=== PATIENT | female | born 1935 | race Caucasian/White ===

== ENCOUNTER 2018-09-29 06:55 | Emergency (ER) | payer MEDICARE, OTHER ==
[2018-09-29] MEDS ORDERED: ACETAMINOPHEN 325 MG TABLET PO STA (07:52)
[2018-09-29] MEDS ORDERED: DEXAMETHASONE 10 MG/ML VIAL PO STA (07:52)
[2018-09-29] MEDS ORDERED: CHERRY SYRUP 10 ML UDC PO ONE (08:03)
--- NOTE | 2018-09-29 08:22 | ED Physician Documentation ---
PD HPI CHEST PAIN - Stated complaint Stated Complaint: RIB PX - Chief complaint Chief Complaint: General - History obtained from History obtained from: Patient, Family - History of Present Illness Timing - onset: How many days ago (2) Timing - onset during: Rest Timing - duration: Days (2) Timing - details: Gradual onset, Still present Quality: Sharp, Pain Location: Right chest Improved by: Rest Worsened by: Inspiration, Movement, Palpation, Position Associated symptoms: No: Shortness of air, Diaphoresis, Nausea, Vomiting, Feeling faint / dizzy, General Weakness, Palpitations, Cough Similar symptoms before: Has not had sx before Recently seen: Clinic - Additional information Additional information: 83 y/o female previously well was sitting in her easy chair and and leaned over to cotton picker a pill on the floor and she leaned against the right chest wall to do this. She had minimal pain then and her chest did not bother her that much until early this morning when it became much worse. She has not broken ribs or contused her chest wall previously. Review of Systems Constitutional: denies: Fever Eyes: denies: Decreased vision Ears: denies: Ear pain Nose: denies: Congestion Throat: denies: Sore throat Cardiac: reports: Chest pain / pressure. 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, Chronic bladder infection, Other HEENT: None Psych: None Musculoskeletal: Osteoarthritis - Past Surgical History Past Surgical History: Yes General: Cholecystectomy, Appendectomy Ortho: Knee replacement Cardiovascular: Other HEENT: Cataracts - Present Medications Home Medications: Ambulatory Orders Medication Instructions Recorded Confirmed Aspirin [Byron] 325 mg ORAL DAILY 09/27/14 10/19/16 Levothyroxine [Synthroid] 112 mcg ORAL DAILY 09/27/14 10/19/16 Omeprazole [Prilosec] 20 mg ORAL BID 09/27/14 10/19/16 Simvastatin 20 mg ORAL DAILY 09/27/14 10/19/16 raNITIdine [Zantac] 150 mg ORAL BID 09/27/14 10/19/16 Atenolol 12.5 mg PO DAILY 10/19/16 10/20/16 - Allergies Allergies/Adverse Reactions: Allergies Allergy/AdvReac Type Severity Reaction Status Date / Time acetaminophen [From Percocet] Allergy Unknown Verified 09/29/18 07:28 gabapentin Allergy Unknown Verified 09/27/14 12:03 oxycodone [From Percocet] Allergy Unknown Verified 09/29/18 07:28 Sulfa (Sulfonamide Allergy Hives Verified 09/27/14 12:03 Antibiotics) - Social History Does the pt smoke?: No Smoking Status: Never smoker Does the pt drink ETOH?: No Does the pt have substance abuse?: No - Immunizations Immunizations are current?: Yes - POLST Patient has POLST: Yes PD ED PE NORMAL - Vitals Vital signs reviewed: Yes (hypertensive ) - General General: Alert and oriented X 3, No acute distress, Well developed/nourished - HEENT HEENT: Atraumatic, PERRL, EOMI - Neck Neck: Supple, no meningeal sign - Cardiac Cardiac: RRR, No murmur - Respiratory Respiratory: No respiratory distress, Clear bilaterally, Other (point tenderness to the chest wall below the right breast. 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 No acute fracture or bony lesion. 2. No pleural effusions. No pneumothorax. 3. Increased size of the hiatal hernia.), EMP read indepedently, See rad report PD MEDICAL DECISION MAKING - ED course Complexity details: reviewed results, re-evaluated patient, considered differential, d/w patient, d/w family ED course: 83 y/o female with right sided chest pain after chest wall contusion is given PO decadron and refuses pain medication. Departure - Departure Disposition: 01 Home, Self Care Clinical Impression: Chest wall contusion Qualifiers: Encounter type: initial encounter Laterality: right Qualified Code(s): S20.211A - Contusion of right front wall of thorax, initial encounter Condition: Stable Instructions: ED Contusion Chest Wall Follow-Up: Henry Rodriguez MD [Primary Care Provider] -
--- NOTE | 2018-09-29 08:37 | XRAY Report ---
Reason: R rib pain Procedure Date: 09/29/2018 Accession Number: [id number] / [id number] Procedure: XR - Ribs w/PA Chest RT CPT Code: FULL RESULT: EXAM: RIGHT RIB RADIOGRAPHY EXAM DATE: 09/29/2018 08:14 AM. CLINICAL HISTORY: Right rib pain. COMPARISON: 10/19/2016. 10/25/2014. TECHNIQUE: 1 view of the chest and 2 views of the ribs. FINDINGS: Bones: Normal. No fracture or bone lesion. Lungs: No focal opacities. No pneumothorax. No pleural effusions. Mediastinum: Cardiomegaly. Hiatal hernia with a transverse dimension of 13.5 cm. Aortic tortuosity. Aortic atherosclerosis. Other: Degenerative changes of the thoracic spine. Status post cholecystectomy. IMPRESSION: 1. No acute fracture or bony lesion. 2. No pleural effusions. No pneumothorax. 3. Increase in size of the hiatal hernia. RADIA
[2018-09-29 09:09] VITALS: BP 160/86
== END 2018-09-29 09:02 | disposition home or self-care (01) ==
LOC: ED 06:55
DX: S20.211A Contusion of right front wall of thorax, initial encounter (principal); I10 Essential (primary) hypertension
CPT/HCPCS: 71101; 99283; A9270

== ENCOUNTER 2019-08-21 11:03 | Emergency (ER) | payer MEDICARE, OTHER ==
--- NOTE | 2019-08-21 12:17 | ED Physician Documentation ---
PD HPI UPPER EXT INJURY - Stated complaint Stated Complaint: GLF-L SHOULDER PX - Chief complaint Chief Complaint: Trauma Ext - History obtained from History obtained from: Patient - History of Present Illness Location: Left, Shoulder Type of injury: Fall Where injury occurred: Home Timing - onset: Today Timing - duration: Hours (2) Timing - details: Abrupt onset Pain level now: 8 Improved by: Immobilization Worsened by: Moving, Palpating Associated symptoms: No: Weakness, Numbness, Tingling, Discolored Contributing factors: No: Anticoagulated, Prior ortho surgery Recently seen: Not recently seen - Additonal information Additional information: This is an 84-year-old woman who presents with her family complaints that she was at home today when she lost her balance in the kitchen and fell landing onto her left elbow and shoulder on the kitchen floor. The injury occurred about 2 hours prior to presentation. She did not hit her head. Denies neck pain numbness or tingling. Her only complaint is pain in the left shoulder that she rates it an 8-9 out of 10 but it is worse with movement. She did not take any medications prior to coming into the emergency department. She typically walks with a cane in her right arm. Review of Systems Skin: denies: Abrasion (s), Laceration (s) Musculoskeletal: reports: Joint pain. 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, Chronic bladder infection, Other HEENT: None Psych: None Musculoskeletal: Osteoarthritis - Past Surgical History Past Surgical History: Yes General: Cholecystectomy, Appendectomy Ortho: Knee replacement Cardiovascular: Other HEENT: Cataracts - Present Medications Home Medications: Ambulatory Orders Medication Instructions Recorded Confirmed Aspirin [Byron] 325 mg ORAL DAILY 09/27/14 08/21/19 Levothyroxine [Synthroid] 112 mcg ORAL DAILY 09/27/14 08/21/19 Omeprazole [Prilosec] 20 mg ORAL BID 09/27/14 08/21/19 Simvastatin 20 mg ORAL DAILY PM 09/27/14 08/21/19 raNITIdine [Zantac] 150 mg ORAL BID 09/27/14 08/21/19 Atenolol 12.5 mg PO DAILY 10/19/16 08/21/19 - Allergies Allergies/Adverse Reactions: Allergies Allergy/AdvReac Type Severity Reaction Status Date / Time acetaminophen [From Percocet] Allergy Unknown Verified 08/21/19 11:09 gabapentin Allergy Unknown Verified 08/21/19 11:09 oxycodone [From Percocet] Allergy Unknown Verified 08/21/19 11:09 Sulfa (Sulfonamide Allergy Hives Verified 08/21/19 11:09 Antibiotics) - Social History Does the pt smoke?: No Smoking Status: Never smoker Does the pt drink ETOH?: No Does the pt have substance abuse?: No - Immunizations Immunizations are current?: Yes - POLST Patient has POLST: Yes PD ED PE NORMAL - Vitals Vital signs reviewed: Yes - General General: Alert and oriented X 3, Well developed/nourished, Other (She grimaces anytime she has to move the left arm. She seated in a wheelchair holding her cane) - HEENT HEENT: Atraumatic - Respiratory Respiratory: No respiratory distress - Derm Derm: Normal color, Warm and dry, Other (No bruising or abrasion noted about the left shoulder) - Extremities Extremities: Other (She is unable to abduct the left shoulder or flex it past about 5 degrees. Tender over the greater trochanter. Left elbow has free range of motion and is nontender. The left wrist is nontender. There are 2+ radial pulses bilaterally.). No: No deformity, No tenderness to palpate, Normal ROM s pain - Neuro Neuro: No motor deficit, No sensory deficit, Normal speech - Psych Psych: Normal mood, Normal affect Results - Vitals Vitals: Vital Signs - 24 hr 08/21/19 08/21/19 11:09 13:10 Temperature 36.5 C 36.8 C Heart Rate 78 62 Respiratory 18 12 Rate Blood Pressure 175/92 H 152/82 H O2 Saturation 98 100 Oxygen O2 Source [] Room air O2 Source Room air - Rads (name of study) L shoulder Radiology: EMP read contemporaneously, See rad report (No obvious fracture) PD MEDICAL DECISION MAKING - ED course Complexity details: reviewed results, d/w patient, d/w family ED course: Results discussed with the patient. She is placed in a sling for comfort. She does not want anything for pain but I recommended Aleve for the next 2 to 3 days and then extra strength Tylenol. Ice the shoulder. She should follow-up with her primary care provider to begin early mobilization to avoid a frozen shoulder. Departure - Departure Disposition: 01 Home, Self Care Clinical Impression: Shoulder injury Qualifiers: Encounter type: initial encounter Laterality: left Qualified Code(s): S49.92XA - Unspecified injury of left shoulder and upper arm, initial encounter Condition: Good Instructions: ED Sling Follow-Up: Henry Rodriguez MD [Primary Care Provider] - Comments: Use the shoulder sling for comfort. Ice the shoulder. I would recommend taking Aleve for the next 2 to 3 days to help with the more acute pain and using Tylenol if needed as well. Follow-up with your doctor this week or early next week for evaluation. You should begin early shoulder mobilization to prevent frozen shoulder.
--- NOTE | 2019-08-21 12:33 | XRAY Report ---
Reason: left shoulder injury Procedure Date: 08/21/2019 Accession Number: [id number] / [id number] Procedure: XR - Shoulder 3 View LT CPT Code: FULL RESULT: EXAM: LEFT SHOULDER RADIOGRAPHY EXAM DATE: 08/21/2019 12:09 PM. CLINICAL HISTORY: Left shoulder injury. COMPARISON: None. TECHNIQUE: 3 views. FINDINGS: Bones: Bones are osteopenic. No fractures or bone lesions. Joints: Mild glenohumeral joint degenerative disease is seen. Mild acromioclavicular degenerative joint disease is seen. Alignment is preserved. Soft tissues: The visualized hemithorax is unremarkable. No soft tissue swelling. IMPRESSION: No acute findings. Shoulder DJD and osteopenia seen. RADIA
[2019-08-21 13:11] VITALS: BP 152/82
== END 2019-08-21 13:26 | disposition home or self-care (01) ==
LOC: ED 11:03
DX: S49.92XA Unspecified injury of left shoulder and upper arm, initial encounter (principal); W18.39XA Other fall on same level, initial encounter; Y92.000 Kitchen of unspecified non-institutional (private) residence as the place of occurrence of the external cause; I10 Essential (primary) hypertension
CPT/HCPCS: 99282; 99283

== ENCOUNTER 2019-09-22 18:10 | Emergency (ER) | payer MEDICARE, OTHER ==
--- NOTE | 2019-09-22 18:53 | ED Physician Documentation ---
History of Present Illness - Stated complaint Stated Complaint: CP, F - Chief complaint Chief Complaint: Cardiac - History obtained from History obtained from: Patient, Family - History of Present Illness Timing: How many weeks ago (1) Pain level max: 2 Pain level now: 1 - Additonal information Additional information: 84-year-old female presents to the emergency department stating she has not been feeling well for the past week since starting Lexapro. She describes burning sensations in her chest occasionally. She also states that she has been feeling weak. States had some dysuria this morning. No fevers. No vomiting. She states that she does not have any history of heart problems. She was recently changed from ranitidine to famotidine for GERD. Her family states that she has had a cardiac ablation in the past. She does not quite recall what this was for. Nothing makes it better or worse Review of Systems Ten Systems: 10 systems reviewed and negative Constitutional: denies: Fever, Chills Ears: denies: Ear pain Nose: denies: Rhinorrhea / runny nose, Congestion Throat: denies: Sore throat Cardiac: denies: Palpitations, Calf pain Respiratory: denies: Dyspnea, Cough GI: denies: Abdominal Pain, Nausea, Vomiting, Diarrhea : reports: Dysuria Skin: denies: Rash Musculoskeletal: denies: Neck pain, Back pain Neurologic: reports: Generalized weakness. 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, Chronic bladder infection, Other HEENT: None Psych: None Musculoskeletal: Osteoarthritis - Past Surgical History Past Surgical History: Yes General: Cholecystectomy, Appendectomy Ortho: Knee replacement Cardiovascular: Other HEENT: Cataracts - Present Medications Home Medications: Ambulatory Orders Medication Instructions Recorded Confirmed Aspirin [Byron] 325 mg ORAL DAILY 09/27/14 08/21/19 Levothyroxine [Synthroid] 112 mcg ORAL DAILY 09/27/14 08/21/19 Omeprazole [Prilosec] 20 mg ORAL BID 09/27/14 08/21/19 Simvastatin 20 mg ORAL DAILY PM 09/27/14 08/21/19 raNITIdine [Zantac] 150 mg ORAL BID 09/27/14 08/21/19 Atenolol 12.5 mg PO DAILY 10/19/16 08/21/19 Aspirin EC [Ecotrin] 325 mg PO DAILY #30 tablet 09/22/19 Atenolol 25 mg PO DAILY #30 tablet 09/22/19 Escitalopram [Lexapro] 10 mg PO DAILY 09/22/19 09/22/19 - Allergies Allergies/Adverse Reactions: Allergies Allergy/AdvReac Type Severity Reaction Status Date / Time acetaminophen [From Percocet] Allergy Unknown Verified 09/22/19 18:30 gabapentin Allergy Unknown Verified 09/22/19 18:30 oxycodone [From Percocet] Allergy Unknown Verified 09/22/19 18:30 Sulfa (Sulfonamide Allergy Hives Verified 09/22/19 18:30 Antibiotics) - Social History Does the pt smoke?: No Smoking Status: Never smoker Does the pt drink ETOH?: No Does the pt have substance abuse?: No - Immunizations Immunizations are current?: Yes - POLST Patient has POLST: Yes PD ED PE NORMAL - Vitals Vital signs reviewed: Yes - General General: Alert and oriented X 3, No acute distress, Well developed/nourished - HEENT HEENT: PERRL, Moist mucous membranes, Pharynx benign - Neck Neck: Supple, no meningeal sign - Cardiac Cardiac: Strong equal pulses, Other (Irregularly irregular) - Respiratory Respiratory: No respiratory distress, Clear bilaterally - Abdomen Abdomen: Soft, Non tender, Non distended - Back Back: No CVA TTP - Derm Derm: Warm and dry, No rash - Extremities Extremities: No edema - Neuro Neuro: Alert and oriented X 3 - Psych Psych: Normal mood, Normal affect Results - Vitals Vitals: Vital Signs - 24 hr 09/22/19 09/22/19 18:28 20:56 Temperature 36.5 C Heart Rate 66 67 Respiratory 18 17 Rate Blood Pressure 190/85 H 159/81 H O2 Saturation 100 97 Oxygen O2 Source [] Room air O2 Source Room air - EKG (time done) 1822 Rate: Rate (enter#) (102) Rhythm: Atrial flutter [place]: Normal QRS: Normal Ischemia: Non specific changes - Labs Labs: Laboratory Tests 09/22/19 09/22/19 09/22/19 18:55 19:08 19:08 WBC 5.4 RBC 4.25 Hgb 13.8 Hct 41.0 MCV 96.5 MCH 32.5 H MCHC 33.7 RDW 13.5 Plt Count 214 MPV 10.1 Neut # (Auto) 2.9 Lymph # (Auto) 2.0 Luna # (Auto) 0.5 Eos # (Auto) 0.1 Baso # (Auto) 0.0 Absolute Nucleated RBC 0.00 Nucleated RBC % 0.0 Sodium Potassium Chloride Carbon Dioxide Anion Gap BUN Creatinine Estimated GFR (MDRD) Glucose Calcium Total Bilirubin AST ALT Alkaline Phosphatase Troponin I High Sens 16.0 H* Total Protein Albumin Globulin Albumin/Globulin Ratio Lipase Urine Color YELLOW Urine Clarity CLEAR Urine pH 6.5 Ur Specific [place] 1.010 Urine Protein NEGATIVE Urine Glucose (UA) NEGATIVE Urine Ketones 15 H Urine Occult Blood MODERATE H Urine Nitrite NEGATIVE Urine Bilirubin NEGATIVE Urine Urobilinogen 0.2 (NORMAL) Ur Leukocyte Esterase SMALL H Urine RBC 0-5 Urine WBC 6-10 H Ur Squamous Epith Cells FEW Squamous Urine Bacteria None Seen Ur Microscopic Review INDICATED Urine Culture Comments INDICATED 09/22/19 19:30 WBC RBC Hgb Hct MCV MCH MCHC RDW Plt Count MPV Neut # (Auto) Lymph # (Auto) Luna # (Auto) Eos # (Auto) Baso # (Auto) Absolute Nucleated RBC Nucleated RBC % Sodium 140 Potassium 3.0 L Chloride 105 Carbon Dioxide 28 Anion Gap 7.0 BUN 16 Creatinine 0.6 Estimated GFR (MDRD) 95 Glucose 102 H Calcium 8.7 Total Bilirubin 1.4 H AST 20 ALT 17 Alkaline Phosphatase 51 Troponin I High Sens Total Protein 6.8 Albumin 3.9 Globulin 2.9 Albumin/Globulin Ratio 1.3 Lipase 23 Urine Color Urine Clarity Urine pH Ur Specific [place] Urine Protein Urine Glucose (UA) Urine Ketones Urine Occult Blood Urine Nitrite Urine Bilirubin Urine Urobilinogen Ur Leukocyte Esterase Urine RBC Urine WBC Ur Squamous Epith Cells Urine Bacteria Ur Microscopic Review Urine Culture Comments - Rads (name of study) cxr Radiology: Prelim report reviewed, EMP read contemporaneously, See rad report (No acute disease) PD MEDICAL DECISION MAKING - ED course Complexity details: reviewed results, re-evaluated patient, considered differential, d/w patient, d/w family ED course: 84-year-old female found to be in atrial fibrillation upon arrival. She spontaneously converted. She felt much better after she converted back to sinus rhythm. She is on atenolol and we will increase this. She does not have any symptoms of acute coronary syndrome at this time. We will also increase her aspirin from a baby aspirin to a full aspirin daily until she can see her doctor for further work-up. No significant laboratory abnormalities other than mild hypokalemia, potassium was replaced. Urinalysis appears to be contaminated, and not a true UTI. Patient counseled regarding signs and symptoms for which I believe and urgent re-evaluation would be necessary. Patient with good understanding of and agreement to plan and is comfortable going home at this time This document was made in part using voice recognition software. While efforts are made to proofread this document, sound alike and grammatical errors may occur. Departure - Departure Disposition: Home, Self Care Clinical Impression: Paroxysmal atrial fibrillation Condition: Good Instructions: ED Afib Follow-Up: Henry Rodriguez MD [Primary Care Provider] - Within 1 week Prescriptions: Aspirin EC [Ecotrin] 325 mg PO DAILY #30 tablet Atenolol 25 mg PO DAILY #30 tablet Comments: We will increase her atenolol to 25 mg by mouth daily. Will increase her aspirin to a full dose aspirin daily. You need to follow-up with your doctor for a cardiac echo and likely Holter monitor. You were in atrial fibrillation when you arrived in the emergency department tonight. It is likely that you have paroxysmal atrial fibrillation. Return if you worsen Discharge Date/Time: 09/22/19 20:56
[2019-09-22 19:00] LABS: BILIRUBIN,URINE NEGATIVE (NEGATIVE); GLUCOSE, URINE (UA) NEGATIVE (NEGATIVE); KETONES,URINE (UA) 15 mg/dL (NEGATIVE); LEUKOCYTE ESTERASE, URINE SMALL (NEGATIVE); NITRITE,URINE NEGATIVE (NEGATIVE); OCCULT BLOOD,URINE MODERATE (NEGATIVE); PH,URINE 6.5 PH (5.0-7.5); PROTEIN,URINE NEGATIVE (NEGATIVE); UROBILINOGEN,URINE 0.2 (NORMAL) E.U./dL (NORMAL)
[2019-09-22 19:01] LABS: CLARITY,URINE CLEAR (CLEAR)
[2019-09-22 19:10] LABS: BACTERIA,URINE None Seen /HPF (None Seen); RBC,URINE 0-5 /HPF (0-5); SQUAMOUS EPITHELIAL CELL,UR FEW Squamous (<= Few)
--- NOTE | 2019-09-22 19:13 | XRAY Report ---
Reason: chest pain Procedure Date: 09/22/2019 Accession Number: [id number] / [id number] Procedure: XR - Chest 1 View X-Ray CPT Code: 32541 Final Report FULL RESULT: EXAM: CHEST RADIOGRAPHY EXAM DATE: 09/22/2019 07:05 PM. CLINICAL HISTORY: Chest pain. COMPARISON: RIBS W/PA CHEST RT 09/29/2018 7:58 AM. TECHNIQUE: 2 portable view. FINDINGS: Lungs/Pleura: No focal opacities evident. No pleural effusion. No pneumothorax. Mediastinum: Within exam limitations, the cardiomediastinal contour is normal. Previously seen hiatal hernia is not demonstrated on the current exam. Other: None. IMPRESSION: No acute disease. RADIA
[2019-09-22 19:19] LABS: BASOPHILS % (AUTO) 0.6 %; EOSINOPHILS # (AUTO) 0.1 10^3/uL (0.0-0.7); EOSINOPHILS % (AUTO) 0.9 %; HGB - HEMOGLOBIN 13.8 g/dL (12.0-16.0); LYMPHOCYTES % (AUTO) 36.7 %; MEAN CORPUSCULAR HEMOGLOBIN 32.5 pg (27.0-31.0); MEAN CORPUSCULAR HGB CONC 33.7 g/dL (32.0-36.0); MEAN CORPUSCULAR VOLUME 96.5 fL (81.0-99.0); MEAN PLATELET VOLUME 10.1 fL (7.9-10.8); MONOCYTES # (AUTO) 0.5 10^3/uL (0.0-1.0); MONOCYTES % (AUTO) 8.3 %; NEUTROPHILS # (AUTO) 2.9 10^3/uL (1.5-6.6); NEUTROPHILS % (AUTO) 53.3 %; PLT - PLATELET COUNT 214 10^3/uL (130-450); RED BLOOD COUNT 4.25 10^6/uL (4.20-5.40); RED CELL DISTRIBUTION WIDTH 13.5 % (12.0-15.0); WHITE BLOOD COUNT 5.4 x10^3/uL (4.8-10.8)
[2019-09-22 19:50] LABS: ALBUMIN 3.9 g/dL (3.2-5.5); ALBUMIN/GLOBULIN RATIO 1.3 (1.0-2.2); BILIRUBIN,TOTAL 1.4 mg/dL (0.2-1.0); CALCIUM 8.7 mg/dL (8.5-10.3); CREATININE 0.6 mg/dL (0.4-1.0); TOTAL PROTEIN 6.8 g/dL (6.7-8.2)
[2019-09-22] MEDS ORDERED: POTASSIUM CHLORIDE 20 MEQ TABLET PO STA (19:51)
[2019-09-22 20:56] VITALS: BP 159/81
== END 2019-09-22 20:56 | disposition home or self-care (01) ==
LOC: ED 18:10
DX: I48.0 Paroxysmal atrial fibrillation (principal); I48.92 Unspecified atrial flutter; I45.81 Long QT syndrome; E87.6 Hypokalemia; R30.0 Dysuria; I10 Essential (primary) hypertension; K21.9 Gastro-esophageal reflux disease without esophagitis; Z79.82 Long term (current) use of aspirin
CPT/HCPCS: 36415; 71045; 80053; 81001; 83690; 84484; 85025; 87077; 87086; 87181; 93005; 99284; A9270; 81003

== ENCOUNTER 2020-07-08 15:45 | Inpatient (IN) | payer MEDICARE, OTHER ==
[2020-07-08] MEDS ORDERED: LIDOCAINE VISCOUS 2% 15 ML UDC MM STA (16:08)
[2020-07-08] MEDS ORDERED: MAG HYDROX/AL HYDROX/SIMETH 30 ML UDC PO STA (16:08)
--- NOTE | 2020-07-08 16:10 | ED Physician Documentation ---
PD HPI CHEST PAIN - Stated complaint Stated Complaint: BURNING IN CHEST, LACK OF APPETITE - Chief complaint Chief Complaint: Cardiac - History obtained from History obtained from: Patient - Additional information Additional information: She has had burning substernal nonradiating chest pain for the last 3 days that has been fairly constant. It is associated with lack of appetite and diarrhea. There is no increased shortness of breath over a baseline shortness of breath that she has due to a hiatal hernia. She has not had any sweats. She is mildly fatigued. She said she has had this before, and then diagnosis was UTI and noncardiac chest pain. She also has a history of PE but this is very different. No pedal edema or calf pain. She is not currently anticoagulated. Review of Systems Ten Systems: 10 systems reviewed and negative Constitutional: denies: Fever, Chills Throat: denies: Dental pain / toothache, Sore throat Cardiac: reports: Chest pain / pressure. denies: Palpitations, Pedal edema, Calf pain Respiratory: reports: Dyspnea (Chronic and unchanged). denies: Cough GI: reports: Diarrhea. denies: Abdominal Pain, Nausea, Vomiting PD PAST MEDICAL HISTORY - Past Medical History Cardiovascular: Hypertension, High cholesterol Endocrine/Autoimmune: HyPOthyroidism GI: [employer]: None : None, Chronic bladder infection, Other HEENT: None Psych: None Musculoskeletal: Osteoarthritis - Past Surgical History Past Surgical History: Yes General: Cholecystectomy, Appendectomy Ortho: Knee replacement Cardiovascular: Other HEENT: Cataracts - Present Medications Home Medications: Ambulatory Orders Medication Instructions Recorded Confirmed Levothyroxine [Synthroid] 112 mcg ORAL DAILY 09/27/14 07/08/20 Omeprazole [Prilosec] 20 mg ORAL BID 09/27/14 07/08/20 Simvastatin 20 mg ORAL DAILY PM 09/27/14 07/08/20 Escitalopram [Lexapro] 10 mg PO DAILY 09/22/19 07/08/20 atenoloL [Atenolol] 25 mg PO DAILY #30 tablet 09/22/19 07/08/20 Famotidine 20 mg PO DAILY 07/08/20 07/08/20 - Allergies Allergies/Adverse Reactions: Allergies Allergy/AdvReac Type Severity Reaction Status Date / Time acetaminophen [From Percocet] Allergy Unknown Verified 07/08/20 15:56 gabapentin Allergy Unknown Verified 07/08/20 15:56 oxycodone [From Percocet] Allergy Unknown Verified 07/08/20 15:56 Sulfa (Sulfonamide Allergy Hives Verified 07/08/20 15:56 Antibiotics) - Social History Does the pt smoke?: No Smoking Status: Never smoker Does the pt drink ETOH?: No Does the pt have substance abuse?: No - Immunizations Immunizations are current?: Yes - POLST Patient has POLST: Yes PD ED PE NORMAL - Vitals Vital signs reviewed: Yes - General General: Alert and oriented X 3, No acute distress - HEENT HEENT: PERRL, EOMI - Neck Neck: Supple, no meningeal sign, No bony TTP - Cardiac Cardiac: RRR, No murmur - Respiratory Respiratory: No respiratory distress, Clear bilaterally - Abdomen Abdomen: Soft, Non tender - Back Back: No CVA TTP, No spinal TTP - Derm Derm: Normal color, Warm and dry - Extremities Extremities: No edema, No calf tenderness / cord - Neuro Neuro: Alert and oriented X 3, Normal speech - Psych Psych: Normal mood, Normal affect Results - Vitals Vitals: Vital Signs - 24 hr 07/08/20 07/08/20 07/08/20 15:56 16:07 16:11 Temperature 36.4 C L 36.4 C L Heart Rate 70 65 Respiratory 18 21 Rate Blood Pressure 159/103 H 175/114 H Blood Pressure 175/114 H [Left] Blood Pressure 187/102 H [Right] O2 Saturation 100 100 07/08/20 07/08/20 07/08/20 16:13 16:44 17:00 Temperature 36.4 C L Heart Rate 69 70 67 Respiratory 20 18 14 Rate Blood Pressure 116/80 166/80 H 152/90 H Blood Pressure [Left] Blood Pressure [Right] O2 Saturation 97 99 97 Oxygen O2 Source [With Activity] Room air O2 Source Room air - EKG (time done) 1554 Rate: Other (Twelve-lead EKG done at 1554 demonstrates normal sinus rhythm with a rate of 64 and an occasional PAC. She has left ventricular hypertrophy. Overall morphology and ST segments are unchanged from the second to last EKG on the chart dated 2015. ) - Labs Labs: Laboratory Tests 07/08/20 07/08/20 07/08/20 16:13 16:13 16:13 WBC 6.4 RBC 4.50 Hgb 14.7 Hct 43.6 MCV 96.9 MCH 32.7 H MCHC 33.7 RDW 13.3 Plt Count 175 MPV 9.5 Neut # (Auto) 4.2 Lymph # (Auto) 1.7 [place] # (Auto) 0.4 Eos # (Auto) 0.0 Baso # (Auto) 0.0 Absolute Nucleated RBC 0.00 Nucleated RBC % 0.0 D-Dimer 230.2 Sodium 138 Potassium 3.8 Chloride 102 Carbon Dioxide 24 Anion Gap 12.0 BUN 12 Creatinine 0.7 Estimated GFR (MDRD) 79 L Glucose 99 Calcium 9.0 Total Bilirubin 1.1 H AST 23 ALT 19 Alkaline Phosphatase 55 Troponin I High Sens Total Protein 7.2 Albumin 4.1 Globulin 3.1 Albumin/Globulin Ratio 1.3 Lipase 20 L Urine Color Urine Clarity Urine pH Ur Specific [place] Urine Protein Urine Glucose (UA) Urine Ketones Urine Occult Blood Urine Nitrite Urine Bilirubin Urine Urobilinogen Ur Leukocyte Esterase Urine RBC Urine WBC Ur Squamous Epith Cells Urine Bacteria Ur Microscopic Review Urine Culture Comments 07/08/20 07/08/20 16:13 16:41 WBC RBC Hgb Hct MCV MCH MCHC RDW Plt Count MPV Neut # (Auto) Lymph # (Auto) [place] # (Auto) Eos # (Auto) Baso # (Auto) Absolute Nucleated RBC Nucleated RBC % D-Dimer Sodium Potassium Chloride Carbon Dioxide Anion Gap BUN Creatinine Estimated GFR (MDRD) Glucose Calcium Total Bilirubin AST ALT Alkaline Phosphatase Troponin I High Sens 18.5 H* Total Protein Albumin Globulin Albumin/Globulin Ratio Lipase Urine Color LT. YELLOW Urine Clarity CLEAR Urine pH 7.5 Ur Specific [place] 1.010 Urine Protein NEGATIVE Urine Glucose (UA) NEGATIVE Urine Ketones 15 H Urine Occult Blood NEGATIVE Urine Nitrite NEGATIVE Urine Bilirubin NEGATIVE Urine Urobilinogen 0.2 (NORMAL) Ur Leukocyte Esterase MODERATE H Urine RBC 0-5 Urine WBC 0-3 Ur Squamous Epith Cells FEW Squamous Urine Bacteria None Seen Ur Microscopic Review INDICATED Urine Culture Comments INDICATED PD MEDICAL DECISION MAKING - ED course ED course: Heart score 5 85-year-old woman with burning chest pain that actually responded to a GI cocktail. She also felt like she probably had a UTI although the lack specific symptoms of that but she does have leukocyte esterase in the urine and wanted to be on Keflex because that is what worked in the past. She was also offered observation stay and decided that she would be more comfortable in the hospital and this is not unreasonable given her advanced age, heart score of 5, and slightly positive troponin although wholly unimpressive. Spoke with Dr. Lozano for observation at 5:23 PM. Departure - Departure Disposition: ED Place in Observation Clinical Impression: Chest pain Hyperlipidemia Qualifiers: Hyperlipidemia type: unspecified Qualified Code(s): E78.5 - Hyperlipidemia, unspecified UTI (urinary tract infection) Qualifiers: Urinary tract infection type: site unspecified Hematuria presence: without hematuria Qualified Code(s): N39.0 - Urinary tract infection, site not specified Condition: Stable Discharge Date/Time: 07/08/20 18:03
[2020-07-08 16:20] LABS: BASOPHILS % (AUTO) 0.3 %; EOSINOPHILS % (AUTO) 0.6 %; HGB - HEMOGLOBIN 14.7 g/dL (12.0-16.0); LYMPHOCYTES # (AUTO) 1.7 10^3/uL (1.5-3.5); LYMPHOCYTES % (AUTO) 26.4 %; MEAN CORPUSCULAR HEMOGLOBIN 32.7 pg (27.0-31.0); MEAN CORPUSCULAR HGB CONC 33.7 g/dL (32.0-36.0); MEAN CORPUSCULAR VOLUME 96.9 fL (81.0-99.0); MEAN PLATELET VOLUME 9.5 fL (7.9-10.8); MONOCYTES # (AUTO) 0.4 10^3/uL (0.0-1.0); MONOCYTES % (AUTO) 5.8 %; NEUTROPHILS # (AUTO) 4.2 10^3/uL (1.5-6.6); NEUTROPHILS % (AUTO) 66.7 %; PLT - PLATELET COUNT 175 10^3/uL (130-450); RED CELL DISTRIBUTION WIDTH 13.3 % (12.0-15.0); WHITE BLOOD COUNT 6.4 x10^3/uL (4.8-10.8)
[2020-07-08 16:35] LABS: ALBUMIN 4.1 g/dL (3.2-5.5); ALBUMIN/GLOBULIN RATIO 1.3 (1.0-2.2); BILIRUBIN,TOTAL 1.1 mg/dL (0.2-1.0); CREATININE 0.7 mg/dL (0.4-1.0); TOTAL PROTEIN 7.2 g/dL (6.7-8.2)
[2020-07-08 16:48] LABS: BILIRUBIN,URINE NEGATIVE (NEGATIVE); GLUCOSE, URINE (UA) NEGATIVE (NEGATIVE); KETONES,URINE (UA) 15 mg/dL (NEGATIVE); LEUKOCYTE ESTERASE, URINE MODERATE (NEGATIVE); NITRITE,URINE NEGATIVE (NEGATIVE); OCCULT BLOOD,URINE NEGATIVE (NEGATIVE); PH,URINE 7.5 PH (5.0-7.5); PROTEIN,URINE NEGATIVE (NEGATIVE); UROBILINOGEN,URINE 0.2 (NORMAL) E.U./dL (NORMAL)
[2020-07-08 16:49] LABS: CLARITY,URINE CLEAR (CLEAR)
[2020-07-08 17:04] LABS: BACTERIA,URINE None Seen /HPF (None Seen); RBC,URINE 0-5 /HPF (0-5); SQUAMOUS EPITHELIAL CELL,UR FEW Squamous (<= Few)
--- NOTE | 2020-07-08 17:09 | XRAY Report ---
PROCEDURE: Chest 1 View X-Ray INDICATIONS: Chest Pain TECHNIQUE: One view of the chest was acquired. COMPARISON: 09/22/2019 FINDINGS: Surgical changes and devices: None. Lungs and pleura: No pleural effusions or pneumothorax. Lungs demonstrate mildly coarse interstitia l markings, likely senescent changes. No acute consolidation. Mediastinum: Mediastinal contours appear normal. Heart size is mildly enlarged with probable modera te hiatal hernia superimposed. Bones and chest wall: No suspicious bony lesions. Degenerative changes at both acromioclavicular brianna ints and in the midthoracic spine. Overlying soft tissues appear unremarkable. IMPRESSION: 1. No acute cardiac pulmonary disease. 2. Probable moderate size hiatal hernia. Reviewed by: Crista Sanon MD on 07/08/2020 5:07 PM PDT Approved by: Crista Sanon MD on 07/08/2020 5:07 PM PDT Station ID: [id number]
[2020-07-08] MEDS ORDERED: cephALEXin 250 MG CAPSULE PO STA (17:18)
[2020-07-08] MEDS ORDERED: PANTOPRAZOLE 40 MG VIAL IVP STA (17:18)
[2020-07-08] MEDS ORDERED: ASPIRIN CHEW 81 MG TABLET PO STA (17:20)
[2020-07-08] MEDS ORDERED: NITROGLYCERIN SL 0.4 MG TABLET SL STA (17:31)
--- NOTE | 2020-07-08 19:02 | HISTORY & PHYSICAL EXAMINATION ---
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 She was to have follow-up for that and work-up by her PCP and cannot remember what testing was ordered, but it was not a stress test. She has a history of pulmonary embolism that occurred after knee replacement in 2016. She has a history of UTI and symptoms that include dysuria, anorexia and burning chest pain. The patient presents now with a 3-day history of anorexia and on and off burning chest pain. No nausea, vomiting or diarrhea. No shortness of breath. No fever. Since these were unrelenting symptoms, she presented to the Emergency Room. She received a dose of Pepcid with no relief. She received a GI cocktail and did have relief. Because of her cardiac score of 5, she is being placed in Observation for further evaluation of the chest pain. PAST MEDICAL HISTORY: Hypertension, remote history of pulmonary embolism that was felt to be provoked that followed knee surgery. History of atrial flutter one year ago. ALLERGIES 1. TYLENOL. 2. GABAPENTIN. 3. OXYCODONE. 4. SULFA. MEDICATIONS 1. Atenolol 25 mg daily. 2. Lexapro 10 mg daily. 3. Famotidine 20 mg daily. 4. Synthroid 112 mcg daily. 5. Prilosec 20 mg b.i.d. 6. Simvastatin 20 mg every night. FAMILY HISTORY: Multiple family members have heart disease: a daughter at 34 of heart disease, a son in young age of heart disease, another son has cardiomyopathy with EF of 10% improving "with a defibrillator", both parents had heart disease. SOCIAL HISTORY: She is nonsmoker and never smoked, drinks no alcohol, no illicit drug use. 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 She gets help with cleaning and meals from her nephew who lives in [place]. She is a ; her 14 years ago. REVIEW OF SYSTEMS: She cannot remember the details around the ablation or what happened after the atrial flutter was found in 2019. There have been no stress tests done here at this hospital. An Echo was done when she had presented with a pulmonary embolism and showed normal LV and RV contractility. A comprehensive review of systems was performed and the pertinent positives are listed; the rest are negative. PHYSICAL EXAM GENERAL: Elderly white female. She is in no distress. VITAL SIGNS: Blood pressure 160/80, heart rate 67 in sinus rhythm, afebrile, room air saturation 97%. HEENT: Unremarkable. NECK: Without JVD or carotid bruits. CHEST: Clear. HEART: Normal heart sounds, no murmurs. ABDOMEN: Soft, nontender. No guarding or rebound. No organomegaly. Normal bowel sounds. EXTREMITIES: No clubbing, cyanosis or edema. NEUROLOGIC: Grossly intact. LABORATORY DATA: Normal electrolytes. Normal BUN and creatinine. Normal liver tests. Troponin 18.5. Lipase normal. CBC normal. D-dimer normal at 230. Urinalysis remarkable for pH of 1.01, high ketones, moderate leukocyte esterase and no bacteria were seen but culture is indicated because of the elevated leukocyte esterase. IMAGING: Chest x-ray: Large hiatal hernia, no cardiopulmonary findings. EKG: Normal sinus rhythm, LVH voltage similar to a remote EKG when she was not in atrial flutter. IMPRESSION/DIAGNOSES 1. Chest pain. The anorexia is also present which are recurrent symptoms when she has a UTI 2. Urinary tract infection (these burning chest pain symptoms are her typical symptoms before a urinary tract infection, she says). 3. Hypertension. 4. History of atrial fibrillation/flutter. 5. Hiatal hernia. PLAN: Place the patient in Observation on telemetry. Continue with her usual blood pressure, aspirin and other medications. Order sublingual nitroglycerin p.r.n. chest pain. Cycle troponins x3. Obtain a resting echo. If troponins are negative, proceed to a stress test, nuclear myocardial perfusion type. We will treat her UTI with oral Keflex. Await urine cultures. Obtain a lipid panel. Diet will be clear liquids, or pureed, due to anorexia. CODE STATUS: FULL CODE. DEEP VENOUS: PROPHYLAXIS: Pharmacotherapy. ATTESTATION: The patient is expected to be discharged or transferred to another facility within 96 hours: Yes. cc: Henry Rodriguez MD TD: 07/08/2020 17:51 DENNISE
[2020-07-08] MEDS ORDERED: NON FORMULARY MED (Omeprazole [Prilosec] 20 MG) PO SCH (21:00)
[2020-07-08] MEDS ORDERED: ATORVASTATIN 10 MG TABLET PO SCH (21:00)
[2020-07-08] MEDS: cephALEXin 250 MG CAPSULE PO SCH (23:14)
[2020-07-09] MEDS: SODIUM CHLORIDE FLUSH 0.9% 10 ML SYRINGE IVP SCH ×3 (00:10→17:44)
[2020-07-09 05:59] LABS: CHOL/HDL RATIO 2.1 (<4.4); CHOLESTEROL 135 mg/dL; HDL CHOLESTEROL 63 mg/dL; LDL CHOLESTEROL,CALCULATED 62 mg/dL; VLDL CHOLESTEROL 10 mg/dL
[2020-07-09] MEDS ORDERED: PANTOPRAZOLE 40 MG TABLET PO SCH (07:00)
[2020-07-09] MEDS ORDERED: LEVOTHYROXINE 100 MCG TABLET PO SCH (07:00)
[2020-07-09] MEDS: ESCITALOPRAM 10 MG TABLET PO SCH (08:53)
[2020-07-09] MEDS: cephALEXin 250 MG CAPSULE PO SCH (08:53)
[2020-07-09] MEDS: ENOXAPARIN 40 MG/0.4 ML SYRINGE SUBQ SCH (08:56)
[2020-07-09] MEDS ORDERED: atenoloL 25 MG TABLET PO SCH (09:00)
[2020-07-09] MEDS ORDERED: FAMOTIDINE 20 MG TABLET PO SCH (09:00)
--- NOTE | 2020-07-09 12:06 | PHARMACY PROGRESS NOTE ---
- Best Possible Medication History Admit Date and Time: 07/08/20 1727 Processed by: Nursing Medication History completed: Yes As the person ultimately responsible for medication therapy, providers are able to order a medication from an existing home medication list in [facility] via the "Reconcile Routine" prior to Confirmation of that medication by system support administrator. Such practice is discouraged except when the physician, in their clinical judgment, deems that a medical need exists for a medication without regard to previous use.
[2020-07-09] MEDS ORDERED: AMINOPHYLLINE 500 MG/20 ML VIAL ONE (12:59)
[2020-07-09] MEDS ORDERED: REGADENOSON 0.4 MG/5 ML SYRINGE IVP ONE ×2 (12:59→14:47)
--- NOTE | 2020-07-09 17:05 | Nuclear Medicine Report ---
PROCEDURE: Rest and exercise myocardial perfusion SPECT with gated imaging and ejection fraction INDICATIONS: Chest pain RADIOPHARMACEUTICAL: 10.5 mCi Tc-99m Myoview IV at rest and 32.7 mCi Tc-99m Myoview IV at peak exerc ise. [id number] was performed. TECHNIQUE: Radiopharmaceutical was injected at peak stress test, and also at rest. SPECT images wer e obtained. SPECT myocardial perfusion images were displayed in short axis, horizontal long axis, an d vertical long axis views. Gated images were reviewed using [employer] software. Lexiscan was perfo rmed. COMPARISON: None available. CARDIAC STRESS: Hemodynamic data: There is normal blood pressure and heart rate response to exercise stress. Symptoms: Patient denied chest pain during exercise. EKG: No diagnostic EKG changes of ischemia. FINDINGS: Raw data: There is good myocardial labeling by radiotracer. No significant motion artifacts. Lung- to-heart ratio is (normal is less than 0.38 for tetrafosmin tracer). Left ventricle function: Gated images demonstrate normal left ventricle wall thickening. No segment al wall motion abnormality. No transient ischemic dilation; TID is 0.8 (normal less than 1.3). The left ventricle resting end-diastolic volume is 87 mL. Left ventricle stress ejection fraction is 65% ; normal values are above 45%. Myocardial perfusion: There is a slight appearance of small focal stress perfusion defect within the anterior wall demonstrating partial reversibility on rest. In addition, there is a focal area of incr eased uptake adjacent to the inferior heart wall seen predominantly on stress. This is felt to repres ent a bowel loop as it is not visualized on rest images. IMPRESSION: 1. Slight appearance of anterior wall stress perfusion defect with partial breast reversibility. This is suspected to represent anterior wall breast attenuation artifact. However, cannot exclude a very small focus of underlying ischemia. 2. No EKG changes diagnostic for ischemia. 3. Ejection fraction 65%. PQRS ATTESTATIONS: Measure 322 - Is this imaging test primarily performed on a low-risk surgery patient for preoperative evaluation within 30 days preceding their low-risk non-cardiac surgery? Low-risk surgery is defined as cardiac or myocardial infarction less than 1%, including (but not limited to) endoscopic pr ocedures, superficial procedures, cataract surgery, and excisional breast surgery: Answer: No Measure 323 - Is this imaging test performed primarily for the monitoring of an asymptomatic patient who had percutaneous coronary intervention on the visit date or within 2 years of the visit date? An swer: No Measure 324 - Is this imaging test performed primarily for the initial detection and risk assessment on an asymptomatic, low coronary heart disease patient? Low CHD risk definition = clinicians should consider the maximum number of available patient factors used to estimate risk based on [place] (A TP III criteria), typically age, gender, diabetes, smoking status, and use of blood pressure medicati on, and integrate age appropriate estimates for missing elements, such as LDL or standard blood press ure. Answer: No Reviewed by: Karla Smith MD on 07/09/2020 5:03 PM PDT Approved by: Karla Smith MD on 07/09/2020 5:03 PM PDT Station ID: [id number]
--- NOTE | 2020-07-09 18:03 | PROVIDER PROGRESS NOTE ---
Assessment/Plan - Problem List (1) Chest pain Assessment/Plan: Troponins were trivially elevated and all flat, ruling her out for IL. She underwent a pharmaceutical stress test, there were no ischemic changes and the nuclear scan was probably negative for significant ischemia. Of note the nuclear scan showed a large loop of bowel present in the thorax behind the heart. She had further intermittent burning chest pain today, not associated with inspitration or activity, that she did not tell her nurse about, they subside in about 5 minutes. Her CP has the features more of heartburn than angina, and it was resolved when given a GI cocktail in the ER at presentation. The patient continues to have anorexia feeling and no food is appealing to her. She is nauseated intermittently but there is no vomiting. She still has diarrhea. Will admit the patient to inpatient status for work-up of her anorexia, persistent nausea and diarrhea, and evaluate the findings of loop of bowel present in the chest (and she has a known large hiatal hernia). She will need a CT of the chest and abdomen. She will need General Surgery consult after that for possible EGD. Will start bowel rest, cancel her regular diet and order a clear liquid diet. Continue with IV fluids for maintenance hydration. We will change her p.o. antibiotics and other po meds to IV form. This was discussed with the patient and her nephew (from [place]) who is at bedside and also her son was on the phone at the time and they are in agreement with the plan. (2) UTI (urinary tract infection) Qualifiers: Urinary tract infection type: site unspecified Hematuria presence: without hematuria Qualified Code(s): N39.0 - Urinary tract infection, site not specified Assessment/Plan: Had told the ER doctor and myself that she usually gets heartburn and anorexia and diarrhea when she has a UTI and this improves immediately after she is started on antibiotics. This time is different: She has had the heartburn for 3 days and there has been no improvement with starting Keflex yesterday. Await urine cultures. Changed to IV antibiotics. (3) Hiatal hernia Assessment/Plan: The son reported that she had evaluation with a surgeon in September 2019 for possible hiatal hernia surgery and she declined surgery. (4) Hypertension Assessment/Plan: There was mild LVH seen on EKG. She had an echo today which did confirm mild LVH on imaging. Continue meds for blood pressure control. (5) Mitral regurgitation Assessment/Plan: The resting echo showed no LV wall motion abnormalities, there was significant mitral regurgitation noted. (6) Hyperlipidemia Qualifiers: Hyperlipidemia type: unspecified Qualified Code(s): E78.5 - Hyperlipidemia, unspecified Assessment/Plan: Statin at at bedtime. We will put a temporary hold on her nonessential p.o. meds (7) Hypothyroidism Assessment/Plan: We continued her usual thyroid medicine while here. Will order a TSH level (8) Anxiety and depression Assessment/Plan: Continue with her usual med Lexapro. - Current Meds Current Meds: Current Medications Generic Name Dose Route Start Last Admin Trade Name Freq PRN Reason Stop Dose Admin Enoxaparin Sodium 40 mg 07/09/20 09:00 07/09/20 08:56 Lovenox SUBQ 40 mg DAILY DERIK Administration Escitalopram Oxalate 10 mg 07/09/20 09:00 07/09/20 08:53 Lexapro PO 10 mg DAILY DERIK Administration Levothyroxine Sodium 112 mcg 07/09/20 07:00 07/09/20 06:38 Synthroid PO 112 mcg 0700 DEIRK Administration Sodium Chloride 10 ml 07/09/20 01:00 07/09/20 17:44 Normal Saline Flush 0.9% IVP 10 ml 0100,0900,1700 DERIK Administration - Lab Result Fish Bone Diagrams: 07/08/20 16:13 07/08/20 16:13 - Additional Planning My Orders: My Active Orders 07/08/20 17:33 Stress Test Prep [RC] .ONCE 07/08/20 17:35 Activity Orders [RC] Q2HR IO [RC] IOSHIFT Initiate Bowel Care Protocol [RC] .protocol Initiate Personal Care Protoco [RC] .protocol Oxygen Therapy [RC] .PRN Telemetry (24 Hour) [RC] Q4HR Vital Signs [RC] 0800,1600,0000 Ondansetron Inj [Zofran Inj] 4 mg IVP Q6HR PRN Sodium Chloride Flush 0.9% [Normal Saline Flush 0.9%] 10 ml IVP PRN PRN Code Status [OTHERS] Routine Condition of Patient [OTHERS] Routine DVT Prophylaxis [OTHERS] Routine 07/08/20 17:37 IV Insert [RC] .ONCE 07/08/20 17:38 Initiate Line Care Protocol [RC] QSHIFT 07/09/20 01:00 Sodium Chloride Flush 0.9% [Normal Saline Flush 0.9%] 10 ml IVP 0100,0900,1700 07/09/20 07:00 Levothyroxine [Synthroid] 112 mcg PO 0700 07/09/20 08:00 Echo Transthoracic Complete [ECHO] Routine 07/09/20 09:00 Enoxaparin [Lovenox] 40 mg SUBQ DAILY Escitalopram [Lexapro] 10 mg PO DAILY 07/09/20 Lunch Clear Liquid Diet [DIET] 07/09/20 17:39 Transfer [Admit \ Transfer \ Status] [RC] .ONCE 07/09/20 17:42 Telemetry-Discontinue [RC] .ONCE 07/09/20 18:00 CeFAZolin 1 GM/100ML NS 0.9% Q8H ceFAZolin [Ancef] 1 gm Sodium Chloride 0.9% Minibag [Normal Saline 0.9% Minibag] 100 ml IV Q8H 07/09/20 21:00 Pantoprazole [Protonix] 40 mg IVP BID 07/10/20 05:00 BMP - BASIC METABOLIC PANEL [CHEM] DAILYLAB CBC - COMP BLD CT W/AUTO DIFF [HEME] DAILYLAB MAGNESIUM [CHEM] DAILYLAB 07/10/20 06:00 NPO [DIET] 07/10/20 07:00 ABDOMEN/PELVIS W [CT] Routine CHEST W [CT] Routine Subjective - Subjective Patient Reports: Abdominal Pain, Diarrhea Objective Vital Signs: Vital Signs - 24 hr 07/08/20 07/08/20 07/08/20 18:05 18:13 20:26 Temperature 36.8 C Heart Rate 69 Heart Rate [ Brachial] Heart Rate [ 69 Monitoring electrodes] Respiratory 17 Rate Blood Pressure 149/96 H Blood Pressure 149/96 H [Left Brachial artery] Blood Pressure [Right Brachial artery] O2 Saturation 99 07/08/20 07/09/20 07/09/20 23:55 05:10 08:00 Temperature 36.4 C L 36.5 C 36.5 C Heart Rate Heart Rate [ Brachial] Heart Rate [ 70 69 68 Monitoring electrodes] Respiratory 16 16 16 Rate Blood Pressure Blood Pressure 141/75 H 146/79 H 152/68 H [Left Brachial artery] Blood Pressure [Right Brachial artery] O2 Saturation 97 99 100 07/09/20 07/09/20 07/09/20 11:44 16:00 16:20 Temperature 36.5 C 36.5 C Heart Rate Heart Rate [ 51 L Brachial] Heart Rate [ 59 L Monitoring electrodes] Respiratory 16 16 Rate Blood Pressure Blood Pressure 165/99 H [Left Brachial artery] Blood Pressure 176/82 H 172/79 H [Right Brachial artery] O2 Saturation 96 96 07/09/20 17:47 Temperature Heart Rate Heart Rate [ 61 Brachial] Heart Rate [ Monitoring electrodes] Respiratory Rate Blood Pressure Blood Pressure [Left Brachial artery] Blood Pressure 158/72 H [Right Brachial artery] O2 Saturation Oxygen O2 Source [With Activity] Room air O2 Source Room air I&O (Last 24 Hrs): Intake and Output Totals x24h 07/07/20 07/08/20 07/09/20 23:59 23:59 23:59 Intake Total 100 Output Total 300 Balance -300 100 General: Mild distress, Other (Appears very fatigued, eyelids are closing, says she did not sleep all night because of the noise in the hallway) HEENT: Atraumatic, Mucous membr. moist/pink Neck: Supple, No JVD Neuro: Alert, Non Focal Cardiovascular: Regular rate, No murmurs Respiratory: No respiratory distress Abdomen: Normal bowel sounds, Soft Extremities: No edema - Results Results: Laboratory Results WBC 6.4 x10^3/uL (4.8-10.8) 07/08/20 16:13 RBC 4.50 10^6/uL (4.20-5.40) 07/08/20 16:13 Hgb 14.7 g/dL (12.0-16.0) 07/08/20 16:13 Hct 43.6 % (37.0-47.0) 07/08/20 16:13 MCV 96.9 fL (81.0-99.0) 07/08/20 16:13 MCH 32.7 pg (27.0-31.0) H 07/08/20 16:13 MCHC 33.7 g/dL (32.0-36.0) 07/08/20 16:13 RDW 13.3 % (12.0-15.0) 07/08/20 16:13 Plt Count 175 10^3/uL (130-450) 07/08/20 16:13 MPV 9.5 fL (7.9-10.8) 07/08/20 16:13 Neut # (Auto) 4.2 10^3/uL (1.5-6.6) 07/08/20 16:13 Lymph # (Auto) 1.7 10^3/uL (1.5-3.5) 07/08/20 16:13 [place] # (Auto) 0.4 10^3/uL (0.0-1.0) 07/08/20 16:13 Eos # (Auto) 0.0 10^3/uL (0.0-0.7) 07/08/20 16:13 Baso # (Auto) 0.0 10^3/uL (0.0-0.1) 07/08/20 16:13 Absolute Nucleated RBC 0.00 x10^3/uL 07/08/20 16:13 Nucleated RBC % 0.0 /100WBC 07/08/20 16:13 D-Dimer 230.2 ng/mL (200.0-255.0) 07/08/20 16:13 Sodium 138 mmol/L (135-145) 07/08/20 16:13 Potassium 3.8 mmol/L (3.5-5.0) 07/08/20 16:13 Chloride 102 mmol/L (101-111) 07/08/20 16:13 Carbon Dioxide 24 mmol/L (21-32) 07/08/20 16:13 Anion Gap 12.0 (6-13) 07/08/20 16:13 BUN 12 mg/dL (6-20) 07/08/20 16:13 Creatinine 0.7 mg/dL (0.4-1.0) 07/08/20 16:13 Estimated GFR (MDRD) 79 (>89) L 07/08/20 16:13 Glucose 99 mg/dL (70-100) 07/08/20 16:13 Calcium 9.0 mg/dL (8.5-10.3) 07/08/20 16:13 Total Bilirubin 1.1 mg/dL (0.2-1.0) H 07/08/20 16:13 AST 23 IU/L (10-42) 07/08/20 16:13 ALT 19 IU/L (10-60) 07/08/20 16:13 Alkaline Phosphatase 55 IU/L (42-121) 07/08/20 16:13 Troponin I High Sens 20.2 ng/L (2.3-14.8) H* 07/09/20 05:12 Total Protein 7.2 g/dL (6.7-8.2) 07/08/20 16:13 Albumin 4.1 g/dL (3.2-5.5) 07/08/20 16:13 Globulin 3.1 g/dL (2.1-4.2) 07/08/20 16:13 Albumin/Globulin Ratio 1.3 (1.0-2.2) 07/08/20 16:13 Triglycerides 50 mg/dL (-149) 07/09/20 05:12 Cholesterol 135 mg/dL (-199) 07/09/20 05:12 LDL Cholesterol, Calc 62 mg/dL (-129) 07/09/20 05:12 VLDL Cholesterol 10 mg/dL 07/09/20 05:12 HDL Cholesterol 63 mg/dL (60-) 07/09/20 05:12 LDL/HDL Ratio 1.0 (<4.4) 07/09/20 05:12 Cholesterol/HDL Ratio 2.1 (<4.4) 07/09/20 05:12 Lipase 20 U/L (22-51) L 07/08/20 16:13 Urine Color LT. YELLOW 07/08/20 16:41 Urine Clarity CLEAR (CLEAR) 07/08/20 16:41 Urine pH 7.5 PH (5.0-7.5) 07/08/20 16:41 Ur Specific [place] 1.010 (1.002-1.030) 07/08/20 16:41 Urine Protein NEGATIVE mg/dL (NEGATIVE) 07/08/20 16:41 Urine Glucose (UA) NEGATIVE mg/dL (NEGATIVE) 07/08/20 16:41 Urine Ketones 15 mg/dL (NEGATIVE) H 07/08/20 16:41 Urine Occult Blood NEGATIVE (NEGATIVE) 07/08/20 16:41 Urine Nitrite NEGATIVE (NEGATIVE) 07/08/20 16:41 Urine Bilirubin NEGATIVE (NEGATIVE) 07/08/20 16:41 Urine Urobilinogen 0.2 (NORMAL) E.U./dL (NORMAL) 07/08/20 16:41 Ur Leukocyte Esterase MODERATE (NEGATIVE) H 07/08/20 16:41 Urine RBC 0-5 /HPF (0-5) 07/08/20 16:41 Urine WBC 0-3 /HPF (0-5) 07/08/20 16:41 Ur Squamous Epith Cells FEW Squamous (<= Few) 07/08/20 16:41 Urine Bacteria None Seen /HPF (None Seen) 07/08/20 16:41 Ur Microscopic Review INDICATED 07/08/20 16:41 Urine Culture Comments INDICATED 07/08/20 16:41
--- NOTE | 2020-07-09 18:23 | CARDIAC PROCEDURE NOTE ---
DATE OF SERVICE: 07/09/2020 Physician: Marialuisa Lozano MD INDICATION: Chest pain. CARDIAC RISK FACTORS: Advanced age, hypertension, hyperlipidemia. DESCRIPTION OF PROCEDURE: After signing informed consent, the patient underwent a Lexiscan pharmaceutical stress test with nuclear myocardial perfusion imaging. RESTING HEART RATE: 58. PEAK HEART RATE 92. RESTING BLOOD PRESSURE: 183/68. PEAK BLOOD PRESSURE: 169/89. Lexiscan was infused per protocol. The patient had brief chest pain. She experienced no burning chest pain or any chest pain, and after 4 minutes, had lower abdominal pressure. She was given aminophylline 25 mg IV for reversal of symptoms. Oxygen saturation remained 95-97% on room air throughout the test. RESTING EKG: Sinus bradycardia, rate 58, PAC, LVH voltage, flat T-waves in leads II, aVF, and V3 through V6. EKG AT PEAK: No new ST-segment or T-wave changes. SUMMARY 1. Abnormal resting EKG. 2. No new ST-segment or T-wave changes occurred during pharmaceutical stress. 3. Nuclear images reported separately. 4. This patient's cardiac risk based on all the above: Low-Moderate. cc: Henry Rodriguez MD TD: 07/09/2020 18:16 [facility]
[2020-07-09] MEDS: ceFAZolin 1 GM in SODIUM CHLORIDE 0.9% MINIBAG 100 ML IV SCH (22:01)
[2020-07-09] MEDS: PANTOPRAZOLE 40 MG VIAL IVP SCH (22:02)
[2020-07-09] MEDS: SODIUM CHLORIDE FLUSH 0.9% 10 ML SYRINGE IVP PRN (22:04)
[2020-07-10] MEDS: SODIUM CHLORIDE FLUSH 0.9% 10 ML SYRINGE IVP SCH ×3 (00:10→16:17)
[2020-07-10] MEDS: ceFAZolin 1 GM in SODIUM CHLORIDE 0.9% MINIBAG 100 ML IV SCH (05:40)
[2020-07-10] MEDS: SODIUM CHLORIDE FLUSH 0.9% 10 ML SYRINGE IVP PRN (05:41)
[2020-07-10 05:58] LABS: BASOPHILS % (AUTO) 0.5 %; EOSINOPHILS # (AUTO) 0.1 10^3/uL (0.0-0.7); HGB - HEMOGLOBIN 14.3 g/dL (12.0-16.0); LYMPHOCYTES % (AUTO) 32.1 %; MEAN CORPUSCULAR HEMOGLOBIN 32.9 pg (27.0-31.0); MEAN CORPUSCULAR VOLUME 96.8 fL (81.0-99.0); MEAN PLATELET VOLUME 9.3 fL (7.9-10.8); MONOCYTES # (AUTO) 0.6 10^3/uL (0.0-1.0); NEUTROPHILS # (AUTO) 3.5 10^3/uL (1.5-6.6); NEUTROPHILS % (AUTO) 56.2 %; PLT - PLATELET COUNT 183 10^3/uL (130-450); RED BLOOD COUNT 4.35 10^6/uL (4.20-5.40); RED CELL DISTRIBUTION WIDTH 13.3 % (12.0-15.0); WHITE BLOOD COUNT 6.1 x10^3/uL (4.8-10.8)
[2020-07-10] MEDS: LEVOTHYROXINE 112 MCG TABLET PO SCH (06:01)
[2020-07-10 06:09] LABS: CALCIUM 8.7 mg/dL (8.5-10.3); CREATININE 0.6 mg/dL (0.4-1.0); MAGNESIUM 2.2 mg/dL (1.7-2.8)
[2020-07-10] MEDS ORDERED: IOVERSOL 320 100 ML VIAL IVP ONE ×2 (07:01→17:17)
[2020-07-10] MEDS: ENOXAPARIN 40 MG/0.4 ML SYRINGE SUBQ SCH (08:58)
[2020-07-10] MEDS: PANTOPRAZOLE 40 MG VIAL IVP SCH (08:58)
[2020-07-10] MEDS: ESCITALOPRAM 10 MG TABLET PO SCH (08:58)
[2020-07-10] MEDS ORDERED: POTASSIUM CHLORIDE 20 MEQ TABLET PO SCH (09:00)
--- NOTE | 2020-07-10 10:01 | CT Report ---
PROCEDURE: Abdomen/Pelvis W INDICATIONS: nausea, heartburn CONTRAST: IV CONTRAST: Optiray 320 ml: 100 PO CONTRAST: *NO PO CONTRAST TECHNIQUE: After the administration of 100 cc Optiray 320 IV contrast, 5 mm thick sections acquired from the sydnee phragms to the symphysis. 5 mm thick coronal and sagittal reformats were acquired. For radiation do se reduction, the following was used: automated exposure control, adjustment of mA and/or kV accordi ng to patient size. COMPARISON: None. FINDINGS: Image quality: Excellent. ABDOMEN: Lung bases: Lung bases demonstrate atelectatic change along the base of the left diaphragm overlying a stomach containing type IV paraesophageal hiatal hernia there is organoaxial rotation. Normal nagi aileen wall thickness and no evidence of adjacent fluid. Heart size is normal. Solid organs: Liver and spleen are normal in size and enhancement. Gallbladder is surgically absent and the biliary system is expectedly prominent. Pancreas enhances normally. No adrenal nodules. K idneys demonstrate normal size and enhancement, without hydronephrosis. 3 mm nonobstructing calcific ation in the upper pole of the right kidney. There are several areas of focal cortical thinning in th e right kidney suggesting scarring. A few cysts are present in the left cortical medullary upper and lower poles. Peritoneum and bowel: Bowel loops demonstrate normal wall thickness and caliber. There is extensive diverticular disease in the sigmoid colon without focal colonic inflammation. No free fluid or air. Nodes and vessels: No retroperitoneal or mesenteric adenopathy by size criteria. Aorta and inferior vena cava are normal in size. Miscellaneous: No ventral hernias. PELVIS: Genitourinary: Bladder wall thickness is normal. The uterus is age-appropriate. A pessary is presen t. Miscellaneous: No inguinal hernias or adenopathy. Bones: No suspicious bony lesions. There is a chronic appearing anterior wedge compression fracture of L1. Severe disc height loss at L5-S1 with vacuum phenomenon. IMPRESSION: 1. Nonobstructed, chronic appearing type IV paraesophageal hernia. 2. Sigmoid diverticulosis. 3. Chronic L2 compression fracture. Reviewed by: Crista Sanon MD on 07/10/2020 9:59 AM PDT Approved by: Crista Sanon MD on 07/10/2020 9:59 AM PDT Station ID: [id number]
--- NOTE | 2020-07-10 10:09 | CT Report ---
PROCEDURE: CHEST W INDICATIONS: hiatal hernia CONTRAST: IV CONTRAST: Optiray 320 ml: 100 PO CONTRAST: *NO PO CONTRAST TECHNIQUE: After the administration of intravenous contrast, 5 mm thick sections acquired from the pulmonary api jazmyne to the posterior costophrenic angles. 7 mm thick coronal MIP reformats were acquired. For radia tion dose reduction, the following was used: automated exposure control, adjustment of mA and/or kV according to patient size. COMPARISON: CTA chest 10/19/2016 FINDINGS: Image quality: Excellent. Lungs and pleura: Atelectatic changes along the left diaphragm surface of the left lower lobe due to elevated left hemidiaphragm. Lungs are otherwise clear. No pleural effusions or pneumothorax. Centra l and peripheral airways are patent and normal in caliber. Mediastinum: Heart size is normal. No pericardial effusion. No mediastinal or hilar adenopathy by size criteria. Thoracic aorta and central pulmonary arteries are normal in size. There is a normal v ariant retroesophageal right subclavian artery. Esophagus is normal in caliber. The wall is of normal thickness. There is a type IV paraesophageal hernia. Bones and chest wall: No suspicious bony lesions. No thoracic vertebral body compression fractures. Chronic appearing L2 compression deformity. No axillary or supraclavicular adenopathy by size criter ia. Thyroid gland is diminutive. Abdomen: Left renal cysts and nonobstructing right renal stone. Surgically absent gallbladder. Visua lized upper abdominal solid organs appear otherwise normal. Upper abdominal bowel loops are normal i n caliber. IMPRESSION: 1. There is a chronic, nonobstructed type IV paraesophageal hiatal hernia containing stomach. 2. Esophageal wall is of normal thickness. 3. Normal variant retroesophageal right subclavian artery. This may contribute to some dysphasia. Reviewed by: Crista Sanon MD on 07/10/2020 10:07 AM PDT Approved by: Crista Sanon MD on 07/10/2020 10:07 AM PDT Station ID: [id number]
[2020-07-10] MEDS ORDERED: GI COCKTAIL 120 ML BOTTLE PO PRN ×2 (11:23→18:17)
[2020-07-10] MEDS ORDERED: LOPERAMIDE 2 MG CAPSULE PO PRN (11:37)
--- NOTE | 2020-07-10 14:29 | PROVIDER PROGRESS NOTE ---
Subjective - Prog Note Date Prog Note Date: 07/10/20 - Subjective Pt reports feeling: Improved Subjective: Patient report his chest pain is totally resolved. as documented by our Provider, patient was ruled out for MT as well. Patient still complain she had diarrhea for 7 days, She still has diarrhea on today, also patient still complains of burning sensation for his upper GI and the chest.She denies fever, cough, shortness of breathing. Discussed with the patient about possibility of outpatient EGD, patient and her grandson agree to have EGD as outpatient as need. Discuss patient and her grandson about a CAT scan result of the chest and abdomen/pelvis. Current Medications - Current Medications Current Medications: Active Medications Enoxaparin Sodium (Lovenox) 40 mg SUBQ DAILY [facility] Last Admin: 07/10/20 08:58 Dose: 40 mg Documented by: Escitalopram Oxalate (Lexapro) 10 mg PO DAILY [facility] Last Admin: 07/10/20 08:58 Dose: 10 mg Documented by: Estrogens Conjugated (Premarin Cream) 1 applic VG QPM [facility] Lactobacillus Rhamnosus (Culturelle) 1 cap PO DAILY [facility] Levothyroxine Sodium (Synthroid) 112 mcg PO QDAC [facility] Last Admin: 07/10/20 06:01 Dose: 112 mcg Documented by: Loperamide HCl (Imodium) 2 mg PO QID PRN PRN Reason: Diarrhea Multi-Ingredient Mouthwash/Gargle () 30 ml PO Q4H PRN PRN Reason: Abdominal Pain Multivitamins (Theragran) 15 tab PO DAILY [facility] Ondansetron HCl (Zofran Inj) 4 mg IVP Q6HR PRN PRN Reason: Nausea / Vomiting Pantoprazole Sodium (Protonix) 40 mg PO BID [facility] Sodium Chloride (Normal Saline Flush 0.9%) 10 ml IVP PRN PRN PRN Reason: NEEDED PER PROVIDER ORDERS Last Admin: 07/10/20 05:41 Dose: 10 ml Documented by: Sodium Chloride (Normal Saline Flush 0.9%) 10 ml IVP 0100,0900,1700 [facility] Last Admin: 07/10/20 08:58 Dose: 10 ml Documented by: Levothyroxine [Synthroid] 112 mcg ORAL DAILY 09/27/14 Omeprazole [Prilosec] 20 mg ORAL BID 09/27/14 Simvastatin 20 mg ORAL DAILY PM 09/27/14 Escitalopram [Lexapro] 10 mg PO DAILY 09/22/19 Famotidine 20 mg PO DAILY 07/08/20 Objective - Vital Signs/Intake & Output Vital Signs: Vital Signs x48h Temp Pulse Pulse Resp BP Pulse Ox 07/10/20 09:55 36.4 C L 59 L 20 97 07/10/20 08:47 36.4 C L 59 L 20 157/82 H 97 Intake & Output: Intake & Output 07/07/20 07/08/20 07/09/20 07/10/20 23:59 23:59 23:59 23:59 Intake Total 200 400 Output Total 300 700 Balance -300 200 -300 - Objective General Appearance: positive: No acute distress, Alert. negative: Lethargic Eyes Bilateral: positive: Normal inspection, PERRL, No lid inflammation ENT: positive: ENT inspection nml, No signs of dehydration. negative: Purulent nasal drainage Neck: positive: Nml inspection, Thyroid nml, Trachea midline. negative: Thyromegaly, Stiff neck, Tracheal deviation Respiratory: positive: Chest non-tender, No respiratory distress. negative: Wheezes, Rales, Rhonchi Cardiovascular: positive: Regular rate & rhythm, No murmur. negative: Tachycardia, Bradycardia, Systolic murmur, Diastolic murmur Peripheral Pulses: 2+ Radial (R), 2+ Radial (L) Abdomen: positive: Non-tender, Nml bowel sounds, No distention. negative: Tenderness, Guarding, Rebound Back: positive: Nml inspection. negative: CVA tenderness (R), CVA tenderness (L) Skin: positive: Color nml, No rash, Warm, Dry. negative: Cyanosis, Diaphoresis, Pallor Extremities: positive: Non-tender, Nml appearance. negative: Calf tenderness, Joao's sign/cords Neurologic/Psychiatric: positive: Oriented x3, Sensation nml, Mood/affect nml. negative: Weakness, Sensory loss, Facial droop, Slurred/abnml speech, Depressed mood/affect - Lab Results Fish Bones: 07/10/20 05:45 07/10/20 05:45 Other Labs: Lab Results x24hrs 07/10/20 07/10/20 07/10/20 Range/Units 05:45 05:45 05:45 WBC 6.1 (4.8-10.8) x10^3/uL RBC 4.35 (4.20-5.40) 10^6/uL Hgb 14.3 (12.0-16.0) g/dL Hct 42.1 (37.0-47.0) % MCV 96.8 (81.0-99.0) fL MCH 32.9 H (27.0-31.0) pg MCHC 34.0 (32.0-36.0) g/dL RDW 13.3 (12.0-15.0) % Plt Count 183 (130-450) 10^3/uL MPV 9.3 (7.9-10.8) fL Neut # (Auto) 3.5 (1.5-6.6) 10^3/uL Lymph # (Auto) 2.0 (1.5-3.5) 10^3/uL [place] # (Auto) 0.6 (0.0-1.0) 10^3/uL Eos # (Auto) 0.1 (0.0-0.7) 10^3/uL Baso # (Auto) 0.0 (0.0-0.1) 10^3/uL Absolute Nucleated RBC 0.00 x10^3/uL Nucleated RBC % 0.0 /100WBC Sodium 140 (135-145) mmol/L Potassium 3.4 L (3.5-5.0) mmol/L Chloride 106 (101-111) mmol/L Carbon Dioxide 25 (21-32) mmol/L Anion Gap 9.0 (6-13) BUN 11 (6-20) mg/dL Creatinine 0.6 (0.4-1.0) mg/dL Estimated GFR (MDRD) 95 (>89) Glucose 103 H (70-100) mg/dL Calcium 8.7 (8.5-10.3) mg/dL Magnesium 2.2 (1.7-2.8) mg/dL TSH 1.57 (0.34-5.60) uIU/mL Stl C. diff Tox B Gene (NEGATIVE) 07/09/20 Range/Units 21:09 WBC (4.8-10.8) x10^3/uL RBC (4.20-5.40) 10^6/uL Hgb (12.0-16.0) g/dL Hct (37.0-47.0) % MCV (81.0-99.0) fL MCH (27.0-31.0) pg MCHC (32.0-36.0) g/dL RDW (12.0-15.0) % Plt Count (130-450) 10^3/uL MPV (7.9-10.8) fL Neut # (Auto) (1.5-6.6) 10^3/uL Lymph # (Auto) (1.5-3.5) 10^3/uL [place] # (Auto) (0.0-1.0) 10^3/uL Eos # (Auto) (0.0-0.7) 10^3/uL Baso # (Auto) (0.0-0.1) 10^3/uL Absolute Nucleated RBC x10^3/uL Nucleated RBC % /100WBC Sodium (135-145) mmol/L Potassium (3.5-5.0) mmol/L Chloride (101-111) mmol/L Carbon Dioxide (21-32) mmol/L Anion Gap (6-13) BUN (6-20) mg/dL Creatinine (0.4-1.0) mg/dL Estimated GFR (MDRD) (>89) Glucose (70-100) mg/dL Calcium (8.5-10.3) mg/dL Magnesium (1.7-2.8) mg/dL TSH (0.34-5.60) uIU/mL Stl C. diff Tox B Gene NEGATIVE (NEGATIVE) ABX Reporting Has patient been on IV antibiotics over the past 48 hours?: No Sepsis Event Note (H) - Evaluation Current Stage of Sepsis: Ruled out Assessment/Plan - Problem List (1) Diarrhea Impression: Patient still report watery diarrhea. C.Dif test was negative.We will add Imodium as needed and probiotics, Gently intravenous IV fluids. Continue laboratory and vital signs monitor (2) Chest pain resolved. pt Does not not have chest pain. Patient chest pain was already ruled out for acute MT. (3) Hiatal hernia Assessment/Plan: Patient continue declined any surgery for her chronic hernia. CAT scan of chest and abdomen show no obstruction. Patient prefer to have EGD as outpatient as needed. The son reported that she had evaluation with a surgeon in September 2019 for possible hiatal hernia surgery and she declined surgery. (4) Hypertension Patient has bradycardia, heart rate 59, Hold beta-tiara, start with pain 5 mg amlodipine , patient new echo show patient has a normal EF. (5) Mitral regurgitation Assessment/Plan: stable, The resting echo showed no LV wall motion abnormalities, there was significant mitral regurgitation noted. (6) Hyperlipidemia We will put a temporary hold on her nonessential p.o. meds (7) Hypothyroidism TSH is normal, continue home synthroid (8) Anxiety and depression Continue with her usual med Lexapro. (9)GERD Patient continues complain heartburn, added GI cocktail as needed, continue Pr otonix to twice daily by PO
[2020-07-10] MEDS ORDERED: SODIUM CHLORIDE 0.9% 1,000 ML IV SCH (15:00)
[2020-07-10] MEDS: SACCHAROMYCES BOULARDII 250 MG CAPSULE PO SCH (16:17)
[2020-07-10] MEDS: amLODIPine 5 MG TABLET PO SCH (16:17)
[2020-07-10] MEDS: LACTOBACILLUS RHAMNOSUS GG CAPSULE PO SCH (16:17)
[2020-07-10] MEDS ORDERED: hydrALAZINE INJ 20 MG/ML VIAL IVP PRN (18:36)
[2020-07-10] MEDS: PANTOPRAZOLE 40 MG TABLET PO SCH (21:14)
[2020-07-10] MEDS: ESTROGENS, CONJUGATED CREAM 30 GM TUBE VG SCH (21:14)
[2020-07-11] MEDS: SODIUM CHLORIDE FLUSH 0.9% 10 ML SYRINGE IVP SCH ×3 (01:27→16:08)
[2020-07-11 05:07] LABS: BASOPHILS % (AUTO) 0.4 %; EOSINOPHILS # (AUTO) 0.1 10^3/uL (0.0-0.7); HGB - HEMOGLOBIN 13.5 g/dL (12.0-16.0); LYMPHOCYTES # (AUTO) 1.4 10^3/uL (1.5-3.5); LYMPHOCYTES % (AUTO) 29.6 %; MEAN CORPUSCULAR HEMOGLOBIN 31.7 pg (27.0-31.0); MEAN CORPUSCULAR HGB CONC 32.8 g/dL (32.0-36.0); MEAN CORPUSCULAR VOLUME 96.7 fL (81.0-99.0); MEAN PLATELET VOLUME 9.5 fL (7.9-10.8); MONOCYTES # (AUTO) 0.4 10^3/uL (0.0-1.0); MONOCYTES % (AUTO) 9.4 %; NEUTROPHILS # (AUTO) 2.7 10^3/uL (1.5-6.6); NEUTROPHILS % (AUTO) 58.4 %; PLT - PLATELET COUNT 173 10^3/uL (130-450); RED BLOOD COUNT 4.26 10^6/uL (4.20-5.40); RED CELL DISTRIBUTION WIDTH 13.2 % (12.0-15.0); WHITE BLOOD COUNT 4.6 x10^3/uL (4.8-10.8)
[2020-07-11 05:17] LABS: CREATININE 0.6 mg/dL (0.4-1.0)
[2020-07-11] MEDS: LEVOTHYROXINE 112 MCG TABLET PO SCH (06:29)
[2020-07-11] MEDS ORDERED: PANTOPRAZOLE 40 MG TABLET PO SCH (07:00)
[2020-07-11] MEDS ORDERED: POTASSIUM CHLORIDE 20 MEQ TABLET PO ONE (08:00)
[2020-07-11] MEDS: SACCHAROMYCES BOULARDII 250 MG CAPSULE PO SCH ×2 (08:25→16:09)
[2020-07-11] MEDS: atenoloL 25 MG TABLET PO SCH (08:26)
[2020-07-11] MEDS: amLODIPine 5 MG TABLET PO SCH (08:26)
[2020-07-11] MEDS: ENOXAPARIN 40 MG/0.4 ML SYRINGE SUBQ SCH (08:26)
[2020-07-11] MEDS: PANTOPRAZOLE 40 MG TABLET PO SCH ×2 (08:26→22:05)
[2020-07-11] MEDS: ESCITALOPRAM 10 MG TABLET PO SCH (08:26)
[2020-07-11] MEDS: LACTOBACILLUS RHAMNOSUS GG CAPSULE PO SCH (08:37)
[2020-07-11] MEDS: MULTIVITAMIN W/MINERALS TABLET PO SCH (08:37)
[2020-07-11] MEDS: ONDANSETRON 4 MG/2 ML VIAL IVP PRN (09:00)
[2020-07-11] MEDS ORDERED: MULTIVITAMIN TABLET PO SCH ×2 (09:00)
[2020-07-11] MEDS ORDERED: MULTIVITAMIN W/IRON, MINERALS 15 ML PO SCH (09:00)
[2020-07-11] MEDS: SODIUM CHLORIDE FLUSH 0.9% 10 ML SYRINGE IVP PRN (09:00)
--- NOTE | 2020-07-11 14:25 | PROVIDER PROGRESS NOTE ---
Subjective - Prog Note Date Prog Note Date: 07/11/20 - Subjective Pt reports feeling: No change Subjective: Patient still report she had a 3 time diarrhea on last night, she had 2 diarrhea and this morning. Patient's son report patient has this chronic diarrhea for over 20 years, From [place] in [place] moved to [facility]. Also he will report patient has chronic burning sensation for chest for many years. Patient reported she had over 20 years no colonoscopy. She report she like to have colonoscopy first or EGD as needed done in the hospital. Called and consulted with Dr. Lo for pt. Patient also report she has poor appetite Current Medications - Current Medications Current Medications: Active Medications Amlodipine Besylate (Norvasc) 5 mg PO DAILY [facility] Last Admin: 07/11/20 08:26 Dose: 5 mg Documented by: Atenolol (Tenormin) 25 mg PO DAILY [facility] Last Admin: 07/11/20 08:26 Dose: 25 mg Documented by: Enoxaparin Sodium (Lovenox) 40 mg SUBQ DAILY [facility] Last Admin: 07/11/20 08:26 Dose: 40 mg Documented by: Escitalopram Oxalate (Lexapro) 10 mg PO DAILY [facility] Last Admin: 07/11/20 08:26 Dose: 10 mg Documented by: Estrogens Conjugated (Premarin Cream) 1 applic VG QPM [facility] Last Admin: 07/10/20 21:14 Dose: 1 applic Documented by: Hydralazine HCl (Apresoline Inj) 10 mg IVP Q4H PRN PRN Reason: Hypertensive Emergency Lactobacillus Rhamnosus (Culturelle) 1 cap PO DAILY [facility] Last Admin: 07/11/20 08:37 Dose: 1 cap Documented by: Levothyroxine Sodium (Synthroid) 112 mcg PO QDAC [facility] Last Admin: 07/11/20 06:29 Dose: 112 mcg Documented by: Loperamide HCl (Imodium) 2 mg PO QID PRN PRN Reason: Diarrhea Last Admin: 07/11/20 10:04 Dose: 2 mg Documented by: Multi-Ingredient Mouthwash/Gargle () 30 ml PO Q4H PRN PRN Reason: Abdominal Pain Last Admin: 07/10/20 19:19 Dose: 30 ml Documented by: Multivitamins/Minerals (Theragran M) 1 tab PO DAILYWM [facility] Last Admin: 07/11/20 08:37 Dose: 1 tab Documented by: Ondansetron HCl (Zofran Inj) 4 mg IVP Q6HR PRN PRN Reason: Nausea / Vomiting Last Admin: 07/11/20 09:00 Dose: 4 mg Documented by: Pantoprazole Sodium (Protonix) 40 mg PO BID [facility] Last Admin: 07/11/20 08:26 Dose: 40 mg Documented by: Saccharomyces Boulardii (Florastor) 250 mg PO BIDWM [facility] Last Admin: 07/11/20 08:25 Dose: 250 mg Documented by: Sodium Chloride (Normal Saline Flush 0.9%) 10 ml IVP PRN PRN PRN Reason: NEEDED PER PROVIDER ORDERS Last Admin: 07/11/20 09:00 Dose: 10 ml Documented by: Sodium Chloride (Normal Saline Flush 0.9%) 10 ml IVP 0100,0900,1700 [facility] Last Admin: 07/11/20 08:27 Dose: 10 ml Documented by: Levothyroxine [Synthroid] 112 mcg ORAL DAILY 09/27/14 Omeprazole [Prilosec] 20 mg ORAL BID 09/27/14 Simvastatin 20 mg ORAL DAILY PM 09/27/14 Escitalopram [Lexapro] 10 mg PO DAILY 09/22/19 Famotidine 20 mg PO DAILY 07/08/20 Objective - Vital Signs/Intake & Output Vital Signs: Vital Signs x48h Temp Pulse Resp BP Pulse Ox 07/11/20 08:00 36.6 C 65 18 166/87 H 96 Intake & Output: Intake & Output 07/08/20 07/09/20 07/10/20 07/11/20 23:59 23:59 23:59 23:59 Intake Total 626 167 9204 Output Total 300 701 Balance -300 200 -1 1000 - Objective General Appearance: positive: No acute distress, Alert. negative: Lethargic Eyes Bilateral: positive: Normal inspection, PERRL, No lid inflammation ENT: positive: ENT inspection nml, No signs of dehydration, Purulent nasal drainage Neck: positive: Nml inspection, Thyroid nml, Trachea midline. negative: Thyromegaly, Stiff neck, Tracheal deviation Respiratory: positive: Chest non-tender, No respiratory distress, Breath sounds nml. negative: Wheezes, Rales, Rhonchi Cardiovascular: positive: Regular rate & rhythm, No murmur. negative: Irregularly irregular, Tachycardia, Bradycardia, Systolic murmur, Diastolic murmur Peripheral Pulses: 2+ Radial (R), 2+ Radial (L) Abdomen: positive: Non-tender, No organomegaly, Nml bowel sounds, No distention. negative: Tenderness, Guarding, Rebound Back: positive: Nml inspection Skin: positive: Color nml, No rash, Warm, Dry. negative: Cyanosis, Diaphoresis, Pallor Extremities: positive: Non-tender, Nml appearance. negative: Calf tenderness Neurologic/Psychiatric: positive: Oriented x3, Sensation nml, Mood/affect nml. negative: Weakness, Sensory loss, Facial droop, Slurred/abnml speech - Lab Results Fish Bones: 07/11/20 04:50 07/11/20 04:50 Other Labs: Lab Results x24hrs 07/11/20 07/11/20 Range/Units 04:50 04:50 WBC 4.6 L (4.8-10.8) x10^3/uL RBC 4.26 (4.20-5.40) 10^6/uL Hgb 13.5 (12.0-16.0) g/dL Hct 41.2 (37.0-47.0) % MCV 96.7 (81.0-99.0) fL MCH 31.7 H (27.0-31.0) pg MCHC 32.8 (32.0-36.0) g/dL RDW 13.2 (12.0-15.0) % Plt Count 173 (130-450) 10^3/uL MPV 9.5 (7.9-10.8) fL Neut # (Auto) 2.7 (1.5-6.6) 10^3/uL Lymph # (Auto) 1.4 L (1.5-3.5) 10^3/uL [place] # (Auto) 0.4 (0.0-1.0) 10^3/uL Eos # (Auto) 0.1 (0.0-0.7) 10^3/uL Baso # (Auto) 0.0 (0.0-0.1) 10^3/uL Absolute Nucleated RBC 0.00 x10^3/uL Nucleated RBC % 0.0 /100WBC Sodium 140 (135-145) mmol/L Potassium 3.3 L (3.5-5.0) mmol/L Chloride 107 (101-111) mmol/L Carbon Dioxide 25 (21-32) mmol/L Anion Gap 8.0 (6-13) BUN 7 (6-20) mg/dL Creatinine 0.6 (0.4-1.0) mg/dL Estimated GFR (MDRD) 95 (>89) Glucose 105 H (70-100) mg/dL Calcium 9.0 (8.5-10.3) mg/dL ABX Reporting Has patient been on IV antibiotics over the past 48 hours?: No Sepsis Event Note (H) - Evaluation Current Stage of Sepsis: Ruled out Assessment/Plan - Problem List (1) Diarrhea Impression: 07/11 Patient's son report patient has a chronic diarrhea for many years. C. difficile is negative, CAT scan of abdomen show No obstructive, chronic Type IV paraesophageal hernia. Patient still reported she had 3 times diarrhea last night, had 2 diarrhea in the morning. C.Dif test was negative. order Imodium as schedule for pt and probiotics was ordered. Patient had over 20 years no colonoscopy. Patient still had persistent diarrhea. Consult with GI surgeon for possible colonoscopy for patient. Patient still report watery diarrhea. C.Dif test was negative.We will add Imodium as needed and probiotics, Gently intravenous IV fluids. Continue laboratory and vital signs monitor (2) Chest pain resolved. pt Does not not have chest pain. Patient chest pain was already ruled out for acute LA. (3) Hiatal hernia Assessment/Plan: Patient continue declined any surgery for her chronic hernia. CAT scan of chest and abdomen show no obstruction. Patient prefer to have EGD as outpatient as needed. The son reported that she had evaluation with a surgeon in September 2019 for possible hiatal hernia surgery and she declined surgery. (4) Hypertension Patient has bradycardia, heart rate 59, Hold beta-tiara, start with pain 5 mg amlodipine , patient new echo show patient has a normal EF. (5) Mitral regurgitation Assessment/Plan: stable, The resting echo showed no LV wall motion abnormalities, there was significant mitral regurgitation noted. (6) Hyperlipidemia We will put a temporary hold on her nonessential p.o. meds (7) Hypothyroidism TSH is normal, continue home synthroid (8) Anxiety and depression Continue with her usual med Lexapro. (9)GERD Patient complains of difficulty swallow of GI cocktail solution, She think it is too thickness, dilation the meds with water to give pt. Patient had a chronic paraesophgia hernia, patient declined to have surgery in the before and now. consult with GI surgeon for possible EGD or out-pt EGD as needed. Patient continues complain heartburn, added GI cocktail as needed, continue Protonix to twice daily by PO
[2020-07-11] MEDS ORDERED: GI COCKTAIL 120 ML BOTTLE PO PRN (15:01)
[2020-07-11] MEDS: LOPERAMIDE 2 MG CAPSULE PO SCH ×2 (16:09→20:00)
[2020-07-11] MEDS: D5.45NS W/20 MEQ KCL 1,000 ML IV SCH (17:15)
[2020-07-11] MEDS: SODIUM/POTASSIUM/MAG SULFATES 354 ML PREP KIT PO SCH (18:06)
--- NOTE | 2020-07-11 20:08 | CONSULTATION NOTE ---
Referring Provider Name of Referring Provider:: José Consult Date: 07/11/20 Chief Complaint - Chief Complaint Chief Complaint: Chest pain and diarrhea History of Present Illness - Admitted From Admitted From:: ED - History Obtained From Records Reviewed: Provider's notes History obtained from: patient and patient's spouse Exam Limitations: none - History of Present Illness HPI Comment/Other: Sruthi is a pleasant 85 year old lady who was admitted through the ED with several days of chest pain and uncontrolled diarrhea. She was seen and evaluated in the ED as well as by the Hospitalist staff and a cardiac cause has been ruled out. She says she has experienced this pain before and has been seen in the emergency department for the same. The diarrhea is a newer issues. She reports is started approximately 7 days ago and has been unrelenting. She denies any fever at home. She reports it has been more than 20 years since her last colonoscopy. She doesn't recall any history of polyps and denies any family history of inflammatory bowel disease. History - Past Medical History Cardiovascular: reports: Hypertension, High cholesterol Respiratory: reports: None Neuro: reports: None Endocrine/Autoimmune: reports: HyPOthyroidism GI: reports: GERD BATCH RECORDS CLERK: reports: None : reports: None, Chronic bladder infection, Other HEENT: reports: None Psych: reports: None Musculoskeletal: reports: Osteoarthritis Derm: reports: None MRSA Hx?: No - Past Surgical History General: reports: Cholecystectomy, Appendectomy Ortho: reports: Knee replacement Cardiovascular: reports: Other HEENT: reports: Cataracts - POLST Patient has POLST: Yes Meds/Allgy - Home Medications Home Medications: Ambulatory Orders Medication Instructions Recorded Confirmed Levothyroxine [Synthroid] 112 mcg ORAL DAILY 09/27/14 07/08/20 Omeprazole [Prilosec] 20 mg ORAL BID 09/27/14 07/08/20 Simvastatin 20 mg ORAL DAILY PM 09/27/14 07/08/20 Escitalopram [Lexapro] 10 mg PO DAILY 09/22/19 07/08/20 atenoloL [Atenolol] 25 mg PO DAILY #30 tablet 09/22/19 07/08/20 Famotidine 20 mg PO DAILY 07/08/20 07/08/20 - Allergies Allergies/Adverse Reactions: Allergies Allergy/AdvReac Type Severity Reaction Status Date / Time acetaminophen [From Percocet] Allergy Unknown Verified 07/08/20 15:56 gabapentin Allergy Unknown Verified 07/08/20 15:56 oxycodone [From Percocet] Allergy Unknown Verified 07/08/20 15:56 Sulfa (Sulfonamide Allergy Hives Verified 07/08/20 15:56 Antibiotics) Review of Systems - Constitutional Constitutional: reports: Fatigue. denies: Fever, Chills - Ears, Nose & Throat Ears, Nose & Throat: reports: Vertigo. denies: Tinnitus - Cardiovascular Cariovascular: reports: Chest pain, Lightheadedness. denies: Palpitations, Edema, Syncope - Gastrointestinal Gastrointestinal: reports: Abdominal pain, Diarrhea (Approximately 6 stools per day), Change in bowel habits, Nausea, Vomiting, Reflux/heartburn, Poor appetite Exam - Vital Signs Reviewed Vital Signs: Yes Vital Signs: Vital Signs x48h Temp Pulse Resp BP 07/11/20 16:00 36.5 C 56 L 18 165/74 H - Physical Exam General Appearance: positive: No acute distress, Alert Eyes Bilateral: positive: Normal inspection, PERRL, EOMI ENT: positive: No signs of dehydration Neck: positive: Nml inspection Respiratory: positive: No respiratory distress, Breath sounds nml Cardiovascular: positive: Regular rate & rhythm Peripheral Pulses: positive: 0 Abdomen: positive: Nml bowel sounds, No distention, Tenderness. negative: Guarding, Rebound Back: positive: Nml inspection Skin: positive: No rash Conclusion and Plan - Lab Results Microbiology Results 07/08/20 16:41 Urine,Clean Catch Urine Culture - Final 10-50,000 COLONIES/ML Polymicrobial growth including potential pathogens. This is suggestive of skin or other contamination. Laboratory Results 07/11/20 04:50: Sodium 140, Potassium 3.3 L, Chloride 107, Carbon Dioxide 25, Anion Gap 8.0, BUN 7, Creatinine 0.6, Estimated GFR (MDRD) 95, Glucose 105 H, Calcium 9.0 07/11/20 04:50: WBC 4.6 L, RBC 4.26, Hgb 13.5, Hct 41.2, MCV 96.7, MCH 31.7 H, MCHC 32.8, RDW 13.2, Plt Count 173, MPV 9.5, Neut # (Auto) 2.7, Lymph # (Auto) 1.4 L, [place] # (Auto) 0.4, Eos # (Auto) 0.1, Baso # (Auto) 0.0, Absolute Nucleated RBC 0.00, Nucleated RBC % 0.0 07/10/20 05:45: TSH 1.57 07/10/20 05:45: Sodium 140, Potassium 3.4 L, Chloride 106, Carbon Dioxide 25, Anion Gap 9.0, BUN 11, Creatinine 0.6, Estimated GFR (MDRD) 95, Glucose 103 H, Calcium 8.7, Magnesium 2.2 07/10/20 05:45: WBC 6.1, RBC 4.35, Hgb 14.3, Hct 42.1, MCV 96.8, MCH 32.9 H, MCHC 34.0, RDW 13.3, Plt Count 183, MPV 9.3, Neut # (Auto) 3.5, Lymph # (Auto) 2.0, [place] # (Auto) 0.6, Eos # (Auto) 0.1, Baso # (Auto) 0.0, Absolute Nucleated RBC 0.00, Nucleated RBC % 0.0 07/09/20 21:09: Stl C. diff Tox B Gene NEGATIVE - Diagnostic Imaging Results Diagnostic Imaging Results: positive: Discussed with radiologist Diagnostic Imaging Results Comments: Normal appearing colon Large paraesophageal hernia - Diagnosis Diagnosis: Epigastric pain and diarrhea - Plan Plan: I have recommended EGD and colonoscopy. We discussed the risks and benefits of both procedures and the patient has expressed a desire to complete them tomorrow.
[2020-07-11] MEDS: ESTROGENS, CONJUGATED CREAM 30 GM TUBE VG SCH (22:05)
[2020-07-12] MEDS: SODIUM CHLORIDE FLUSH 0.9% 10 ML SYRINGE IVP SCH ×3 (00:14→18:27)
[2020-07-12] MEDS: SODIUM/POTASSIUM/MAG SULFATES 354 ML PREP KIT PO SCH (05:01)
[2020-07-12 05:27] LABS: BASOPHILS % (AUTO) 0.3 %; EOSINOPHILS # (AUTO) 0.1 10^3/uL (0.0-0.7); EOSINOPHILS % (AUTO) 2.3 %; LYMPHOCYTES # (AUTO) 1.7 10^3/uL (1.5-3.5); LYMPHOCYTES % (AUTO) 29.2 %; MEAN CORPUSCULAR HEMOGLOBIN 31.6 pg (27.0-31.0); MEAN CORPUSCULAR HGB CONC 32.3 g/dL (32.0-36.0); MEAN CORPUSCULAR VOLUME 97.8 fL (81.0-99.0); MONOCYTES # (AUTO) 0.6 10^3/uL (0.0-1.0); MONOCYTES % (AUTO) 9.8 %; NEUTROPHILS # (AUTO) 3.3 10^3/uL (1.5-6.6); NEUTROPHILS % (AUTO) 57.9 %; PLT - PLATELET COUNT 185 10^3/uL (130-450); RED BLOOD COUNT 4.11 10^6/uL (4.20-5.40); RED CELL DISTRIBUTION WIDTH 13.2 % (12.0-15.0); WHITE BLOOD COUNT 5.7 x10^3/uL (4.8-10.8)
[2020-07-12 05:36] LABS: CALCIUM 8.8 mg/dL (8.5-10.3); CREATININE 0.6 mg/dL (0.4-1.0)
[2020-07-12] MEDS ORDERED: POTASSIUM CHLORIDE 20 MEQ TABLET PO ONE (06:50)
[2020-07-12] MEDS: LEVOTHYROXINE 112 MCG TABLET PO SCH (07:05)
[2020-07-12] MEDS: D5.45NS W/20 MEQ KCL 1,000 ML IV SCH (08:41)
[2020-07-12] MEDS: LACTOBACILLUS RHAMNOSUS GG CAPSULE PO SCH (08:42)
[2020-07-12] MEDS: amLODIPine 5 MG TABLET PO SCH (08:42)
[2020-07-12] MEDS: SACCHAROMYCES BOULARDII 250 MG CAPSULE PO SCH ×2 (08:42→18:27)
[2020-07-12] MEDS: ESCITALOPRAM 10 MG TABLET PO SCH (08:42)
[2020-07-12] MEDS: atenoloL 25 MG TABLET PO SCH (08:42)
[2020-07-12] MEDS: PANTOPRAZOLE 40 MG TABLET PO SCH ×2 (08:43→22:13)
[2020-07-12] MEDS: MULTIVITAMIN W/MINERALS TABLET PO SCH (08:43)
[2020-07-12] MEDS: ENOXAPARIN 40 MG/0.4 ML SYRINGE SUBQ SCH (08:44)
--- NOTE | 2020-07-12 14:30 | Ultrasound Report ---
PROCEDURE: Duplex Ext Veins Bilateral INDICATIONS: Bilateral lower extremity pain. Concern for DVT. TECHNIQUE: Real-time imaging, as well as color and pulse Doppler interrogation, were performed of the deep veins of both legs from the inguinal ligament to the popliteal fossa. COMPARISON: Right lower extremity venous duplex 10/19/2016. FINDINGS: The deep veins are normally compressible, and free of intraluminal thrombus. Color and pu lse Doppler demonstrate normal phasic intravascular flow. There is normal augmentation response to d istal compression maneuver. IMPRESSION: No lower extremity DVT in either leg. Preliminary results were conveyed to Dr. Shaw at 2:15 PM by the straightening machine feeder. Reviewed by: Gabino Queen MD on 07/12/2020 2:29 PM PDT Approved by: Gabino Queen MD on 07/12/2020 2:29 PM PDT Station ID: [id number]
--- NOTE | 2020-07-12 15:02 | ANESTHESIA ---
Pre-Anesthesia VS, & Labs - Diagnosis Diagnosis Epigastric pain and diarrhea - Procedure EGD, colonoscopy Vital Signs: Temp Pulse Resp BP Pulse Ox 36.5 C 61 20 137/71 H 100 07/12/20 08:05 07/12/20 08:05 07/12/20 08:05 07/12/20 08:05 07/12/20 08:05 Height: 5 ft 2.5 in Weight (kg): 82 kg Body Mass Index: 32.5 BMI Classification: Obese - NPO >8 hours (prep finished this am) - Is Patient ?: No - Lab Results Current Lab Results: Laboratory Tests 07/12/20 04:40: Sodium 138, Potassium 3.4 L, Chloride 104, Carbon Dioxide 25, Anion Gap 9.0, BUN 7, Creatinine 0.6, Estimated GFR (MDRD) 95, Glucose 125 H, Calcium 8.8 07/12/20 04:40: WBC 5.7, RBC 4.11 L, Hgb 13.0, Hct 40.2, MCV 97.8, MCH 31.6 H, MCHC 32.3, RDW 13.2, Plt Count 185, MPV 10.0, Neut # (Auto) 3.3, Lymph # (Auto) 1.7, [place] # (Auto) 0.6, Eos # (Auto) 0.1, Baso # (Auto) 0.0, Absolute Nucleated RBC 0.00, Nucleated RBC % 0.0 07/11/20 04:50: Sodium 140, Potassium 3.3 L, Chloride 107, Carbon Dioxide 25, Anion Gap 8.0, BUN 7, Creatinine 0.6, Estimated GFR (MDRD) 95, Glucose 105 H, Calcium 9.0 07/11/20 04:50: WBC 4.6 L, RBC 4.26, Hgb 13.5, Hct 41.2, MCV 96.7, MCH 31.7 H, MCHC 32.8, RDW 13.2, Plt Count 173, MPV 9.5, Neut # (Auto) 2.7, Lymph # (Auto) 1.4 L, [place] # (Auto) 0.4, Eos # (Auto) 0.1, Baso # (Auto) 0.0, Absolute Nucleated RBC 0.00, Nucleated RBC % 0.0 07/10/20 05:45: TSH 1.57 07/10/20 05:45: Sodium 140, Potassium 3.4 L, Chloride 106, Carbon Dioxide 25, Anion Gap 9.0, BUN 11, Creatinine 0.6, Estimated GFR (MDRD) 95, Glucose 103 H, Calcium 8.7, Magnesium 2.2 07/10/20 05:45: WBC 6.1, RBC 4.35, Hgb 14.3, Hct 42.1, MCV 96.8, MCH 32.9 H, MCHC 34.0, RDW 13.3, Plt Count 183, MPV 9.3, Neut # (Auto) 3.5, Lymph # (Auto) 2.0, [place] # (Auto) 0.6, Eos # (Auto) 0.1, Baso # (Auto) 0.0, Absolute Nucleated RBC 0.00, Nucleated RBC % 0.0 07/09/20 05:12: Troponin I High Sens 20.2 H* 07/09/20 05:12: Triglycerides 50, Cholesterol 135, LDL Cholesterol, Calc 62, VLDL Cholesterol 10, HDL Cholesterol 63, LDL/HDL Ratio 1.0, Cholesterol/HDL Ratio 2.1 07/08/20 22:10: Troponin I High Sens 22.8 H* 07/08/20 19:02: Troponin I High Sens 19.8 H* 07/08/20 16:13: Troponin I High Sens 18.5 H* 07/08/20 16:13: Sodium 138, Potassium 3.8, Chloride 102, Carbon Dioxide 24, Anion Gap 12.0, BUN 12, Creatinine 0.7, Estimated GFR (MDRD) 79 L, Glucose 99, Calcium 9.0, Total Bilirubin 1.1 H, AST 23, ALT 19, Alkaline Phosphatase 55, Total Protein 7.2, Albumin 4.1, Globulin 3.1, Albumin/Globulin Ratio 1.3, Lipase 20 L 07/08/20 16:13: D-Dimer 230.2 07/08/20 16:13: WBC 6.4, RBC 4.50, Hgb 14.7, Hct 43.6, MCV 96.9, MCH 32.7 H, MCHC 33.7, RDW 13.3, Plt Count 175, MPV 9.5, Neut # (Auto) 4.2, Lymph # (Auto) 1.7, [place] # (Auto) 0.4, Eos # (Auto) 0.0, Baso # (Auto) 0.0, Absolute Nucleated RBC 0.00, Nucleated RBC % 0.0 Fish Bones: 07/12/20 04:40 07/12/20 04:40 Home Medications and Allergies Home Medications: Ambulatory Orders Famotidine 20 mg PO DAILY 07/08/20 Active Medications Amlodipine Besylate (Norvasc) 5 mg PO DAILY [facility] Last Admin: 07/12/20 08:42 Dose: 5 mg Documented by: Atenolol (Tenormin) 25 mg PO DAILY [facility] Last Admin: 07/12/20 08:42 Dose: 25 mg Documented by: Enoxaparin Sodium (Lovenox) 40 mg SUBQ DAILY [facility] Last Admin: 07/12/20 08:44 Dose: Not Given Documented by: Escitalopram Oxalate (Lexapro) 10 mg PO DAILY [facility] Last Admin: 07/12/20 08:42 Dose: 10 mg Documented by: Estrogens Conjugated (Premarin Cream) 1 applic VG QPM [facility] Last Admin: 07/11/20 22:05 Dose: 1 applic Documented by: Hydralazine HCl (Apresoline Inj) 10 mg IVP Q4H PRN PRN Reason: Hypertensive Emergency Potassium Chloride/Dextrose/Sod Cl (D5.45ns W/20 Meq Kcl) 1,000 mls @ 83.333 mls/hr IV .Q12H [facility] Stop: 07/12/20 16:59 Last Admin: 07/12/20 08:41 Dose: 83.333 mls/hr Documented by: Lactobacillus Rhamnosus (Culturelle) 1 cap PO DAILY [facility] Last Admin: 07/12/20 08:42 Dose: 1 cap Documented by: Levothyroxine Sodium (Synthroid) 112 mcg PO QDAC [facility] Last Admin: 07/12/20 07:05 Dose: 112 mcg Documented by: Loperamide HCl (Imodium) 2 mg PO QID PRN PRN Reason: Diarrhea Multi-Ingredient Mouthwash/Gargle () 30 ml PO Q4H PRN PRN Reason: Abdominal Pain Multivitamins/Minerals (Theragran M) 1 tab PO DAILYWM [facility] Last Admin: 07/12/20 08:43 Dose: 1 tab Documented by: Ondansetron HCl (Zofran Inj) 4 mg IVP Q6HR PRN PRN Reason: Nausea / Vomiting Last Admin: 07/11/20 09:00 Dose: 4 mg Documented by: Pantoprazole Sodium (Protonix) 40 mg PO BID [facility] Last Admin: 07/12/20 08:43 Dose: 40 mg Documented by: Saccharomyces Boulardii (Florastor) 250 mg PO BIDWM [facility] Last Admin: 07/12/20 08:42 Dose: 250 mg Documented by: Sodium Chloride (Normal Saline Flush 0.9%) 10 ml IVP PRN PRN PRN Reason: NEEDED PER PROVIDER ORDERS Last Admin: 07/11/20 09:00 Dose: 10 ml Documented by: Sodium Chloride (Normal Saline Flush 0.9%) 10 ml IVP 0100,0900,1700 [facility] Last Admin: 07/12/20 08:43 Dose: Not Given Documented by: Levothyroxine [Synthroid] 112 mcg ORAL DAILY 09/27/14 Omeprazole [Prilosec] 20 mg ORAL BID 09/27/14 Simvastatin 20 mg ORAL DAILY PM 09/27/14 Escitalopram [Lexapro] 10 mg PO DAILY 09/22/19 Famotidine 20 mg PO DAILY 07/08/20 Allergies/Adverse Reactions: Allergies Allergy/AdvReac Type Severity Reaction Status Date / Time acetaminophen [From Percocet] Allergy Unknown Verified 07/08/20 15:56 gabapentin Allergy Unknown Verified 07/08/20 15:56 oxycodone [From Percocet] Allergy Unknown Verified 07/08/20 15:56 Sulfa (Sulfonamide Allergy Hives Verified 07/08/20 15:56 Antibiotics) Anes History & Medical History - Anesthetic History Anesthesia Complications: reports: No previous complications - Medical History Cardiovascular: reports: Hypertension, High cholesterol Pulmonary: reports: None Gastrointestinal: reports: GERD Urinary: reports: None, Chronic bladder infection, Other Neuro: reports: None Musculoskeletal: reports: Osteoarthritis Endocrine/Autoimmune: reports: HyPOthyroidism Blood Disorders: reports: None Skin: reports: None Smoking Status: Never smoker - Surgical History General: Cholecystectomy, Appendectomy Eyes Ears Nose Throat (EENT): Cataracts Cardiothoracic: Other Urologic: Bladder surgery Orthopedic: Knee replacement Exam General: Alert Dental: WNL Mouth Opening: Greater than 4 Fingerbreadths Mallampati classification: III Thyromental Distance: less than 4 cm Respiratory: Lungs clear Cardiovascular: Regular rate, Normal S1, Normal S2 Mental/Cognitive Status: Alert/Oriented X3 Plan Anesthesia Type: MAC Consent for Procedure(s) Verified and Reviewed: Yes Code Status: Attempt Resuscitation ASA classification: 2-Mild systemic disease Is this case an emergency?: No
[2020-07-12] MEDS ORDERED: PROPOFOL 500 MG/50 ML 500 MG/50 ML VIAL ONE (16:08)
[2020-07-12] MEDS ORDERED: LIDO GARGLE 30 ML BOTTLE PO ONE (16:27)
[2020-07-12] MEDS ORDERED: LIDO GARGLE 30 ML BOTTLE ONE (16:27)
[2020-07-12] MEDS ORDERED: BENZOCAINE/TETRACAINE/BUTAMBEN 20 GM TOP ONE (16:29)
--- NOTE | 2020-07-12 18:04 | PROVIDER PROGRESS NOTE ---
Subjective - Subjective Pt reports feeling: No change Subjective: Patient will have a EGD and a colonoscopy done by the GI surgeon Later this afternoon, will discuss the result with pt Current Medications - Current Medications Current Medications: Active Medications Amlodipine Besylate (Norvasc) 5 mg PO DAILY [facility] Last Admin: 07/13/20 10:39 Dose: 5 mg Documented by: Atenolol (Tenormin) 25 mg PO DAILY [facility] Last Admin: 07/13/20 10:39 Dose: 25 mg Documented by: Enoxaparin Sodium (Lovenox) 40 mg SUBQ DAILY [facility] Last Admin: 07/13/20 10:43 Dose: 40 mg Documented by: Escitalopram Oxalate (Lexapro) 10 mg PO DAILY [facility] Last Admin: 07/13/20 10:42 Dose: Not Given Documented by: Estrogens Conjugated (Premarin Cream) 1 applic VG QPM [facility] Last Admin: 07/12/20 22:12 Dose: 1 applic Documented by: Hydralazine HCl (Apresoline Inj) 10 mg IVP Q4H PRN PRN Reason: Hypertensive Emergency Lactobacillus Rhamnosus (Culturelle) 1 cap PO DAILY [facility] Last Admin: 07/13/20 10:40 Dose: 1 cap Documented by: Levothyroxine Sodium (Synthroid) 112 mcg PO QDAC [facility] Last Admin: 07/13/20 06:11 Dose: 112 mcg Documented by: Loperamide HCl (Imodium) 2 mg PO QID PRN PRN Reason: Diarrhea Last Admin: 07/13/20 12:40 Dose: 2 mg Documented by: Multi-Ingredient Mouthwash/Gargle () 30 ml PO Q4H PRN PRN Reason: Abdominal Pain Multivitamins/Minerals (Theragran M) 1 tab PO DAILYWM [facility] Last Admin: 07/13/20 10:40 Dose: 1 tab Documented by: Ondansetron HCl (Zofran Inj) 4 mg IVP Q6HR PRN PRN Reason: Nausea / Vomiting Last Admin: 07/13/20 00:48 Dose: 4 mg Documented by: Pantoprazole Sodium (Protonix) 40 mg PO BID [facility] Last Admin: 07/13/20 10:40 Dose: 40 mg Documented by: Sodium Chloride (Normal Saline Flush 0.9%) 10 ml IVP PRN PRN PRN Reason: NEEDED PER PROVIDER ORDERS Last Admin: 07/11/20 09:00 Dose: 10 ml Documented by: Sodium Chloride (Normal Saline Flush 0.9%) 10 ml IVP 0100,0900,1700 DERIK Last Admin: 07/13/20 10:42 Dose: 10 ml Documented by: Levothyroxine [Synthroid] 112 mcg ORAL DAILY 09/27/14 Omeprazole [Prilosec] 20 mg ORAL BID 09/27/14 Simvastatin 20 mg ORAL DAILY PM 09/27/14 Escitalopram [Lexapro] 10 mg PO DAILY 09/22/19 Famotidine 20 mg PO DAILY 07/08/20 Objective - Vital Signs/Intake & Output Vital Signs: Vital Signs x48h Temp Pulse Resp BP BP Pulse Ox 07/12/20 17:31 36.3 C L 59 L 18 107/63 99 07/12/20 16:21 36.5 C 58 L 19 154/79 H 100 Intake & Output: Intake & Output 07/09/20 07/10/20 07/11/20 07/12/20 23:59 23:59 23:59 23:59 Intake Total 153 279 2673 2620 Output Total 701 Balance 200 -1 1500 2620 - Objective General Appearance: positive: No acute distress, Alert. negative: Lethargic Eyes Bilateral: positive: Normal inspection, No lid inflammation ENT: positive: ENT inspection nml, No signs of dehydration. negative: Purulent nasal drainage Neck: positive: Nml inspection, Thyroid nml, Trachea midline. negative: Thyromegaly, Stiff neck, Tracheal deviation Respiratory: positive: Chest non-tender, No respiratory distress, Breath sounds nml. negative: Wheezes, Rales, Rhonchi Cardiovascular: positive: Regular rate & rhythm, No murmur. negative: Irregularly irregular, Tachycardia, Bradycardia, Systolic murmur, Diastolic murmur Peripheral Pulses: 2+ Radial (R), 2+ Radial (L) Abdomen: positive: Non-tender, Nml bowel sounds, No distention. negative: Tenderness, Guarding, Rebound Back: positive: Nml inspection Skin: positive: Color nml, No rash, Warm, Dry. negative: Cyanosis, Diaphoresis, Pallor Extremities: positive: Non-tender, Nml appearance. negative: Calf tenderness, Joao's sign/cords Neurologic/Psychiatric: positive: Oriented x3, Motor nml, Sensation nml. negative: Weakness, Sensory loss, Facial droop, Slurred/abnml speech, Depressed mood/affect - Lab Results Fish Bones: 07/13/20 05:10 07/13/20 05:10 Other Labs: Lab Results x24hrs 07/12/20 07/12/20 07/12/20 Range/Units 16:50 04:40 04:40 WBC 5.7 (4.8-10.8) x10^3/uL RBC 4.11 L (4.20-5.40) 10^6/uL Hgb 13.0 (12.0-16.0) g/dL Hct 40.2 (37.0-47.0) % MCV 97.8 (81.0-99.0) fL MCH 31.6 H (27.0-31.0) pg MCHC 32.3 (32.0-36.0) g/dL RDW 13.2 (12.0-15.0) % Plt Count 185 (130-450) 10^3/uL MPV 10.0 (7.9-10.8) fL Neut # (Auto) 3.3 (1.5-6.6) 10^3/uL Lymph # (Auto) 1.7 (1.5-3.5) 10^3/uL [place] # (Auto) 0.6 (0.0-1.0) 10^3/uL Eos # (Auto) 0.1 (0.0-0.7) 10^3/uL Baso # (Auto) 0.0 (0.0-0.1) 10^3/uL Absolute Nucleated RBC 0.00 x10^3/uL Nucleated RBC % 0.0 /100WBC Sodium 138 (135-145) mmol/L Potassium 3.4 L (3.5-5.0) mmol/L Chloride 104 (101-111) mmol/L Carbon Dioxide 25 (21-32) mmol/L Anion Gap 9.0 (6-13) BUN 7 (6-20) mg/dL Creatinine 0.6 (0.4-1.0) mg/dL Estimated GFR (MDRD) 95 (>89) Glucose 125 H (70-100) mg/dL Calcium 8.8 (8.5-10.3) mg/dL Stool Leukocytes, Qual NEGATIVE (Negative) ABX Reporting Has patient been on IV antibiotics over the past 48 hours?: No Sepsis Event Note (H) - Evaluation Current Stage of Sepsis: Ruled out Assessment/Plan - Problem List (1) Diarrhea Impression: 07/12 Patient We will have EGD and colonoscopy in late afternoon, We will follow- up with surgeon and discuss with test results with patient. Patient feels some anxious, worry about clots in her lower extremities. Bilateral lower extremity ultrasound show no DVT. 07/11 Patient's son report patient has a chronic diarrhea for many years. C. difficile is negative, CAT scan of abdomen show No obstructive, chronic Type IV paraesophageal hernia. Patient still reported she had 3 times diarrhea last night, had 2 diarrhea in the morning. C.Dif test was negative. order Imodium as schedule for pt and probiotics was ordered. Patient had over 20 years no colonoscopy. Patient still had persistent diarrhea. Consult with GI surgeon for possible colonoscopy for patient. Patient still report watery diarrhea. C.Dif test was negative.We will add Imodium as needed and probiotics, Gently intravenous IV fluids. Continue laboratory and vital signs monitor (2) Chest pain resolved. pt Does not not have chest pain. Patient chest pain was already ruled out for acute IN. (3) Hiatal hernia Assessment/Plan: 07/12 Patient has a history of large hiatal hernia, We will follow-up EGD, discussed with result with patient Patient continue declined any surgery for her chronic hernia. CAT scan of chest and abdomen show no obstruction. Patient prefer to have EGD as outpatient as needed. The son reported that she had evaluation with a surgeon in September 2019 for possible hiatal hernia surgery and she declined surgery. (4) Hypertension Patient has bradycardia, heart rate 59, Hold beta-tiara, start with pain 5 mg amlodipine , patient new echo show patient has a normal EF. (5) Mitral regurgitation Assessment/Plan: stable, The resting echo showed no LV wall motion abnormalities, there was significant mitral regurgitation noted. (6) Hyperlipidemia We will put a temporary hold on her nonessential p.o. meds (7) Hypothyroidism TSH is normal, continue home synthroid (8) Anxiety and depression pt had home Lexapro, because pt think it has significant side effect of meds, she stop Lexapro. (9)GERD Patient complains of difficulty swallow of GI cocktail solution, She think it is too thickness, dilation the meds with water to give pt. Patient had a chronic paraesophgia hernia, patient declined to have surgery in the before and now. consult with GI surgeon for possible EGD or out-pt EGD as needed. Patient continues complain heartburn, added GI cocktail as needed, continue Protonix to twice daily by PO
--- NOTE | 2020-07-12 19:36 | ANESTHESIA POST OP EVALUATION ---
Anesthesia Post Eval - Post Anesthesia Eval Vitals: Last Vital Signs Temp 36.3 C L 07/12/20 17:31 Pulse 59 L 07/12/20 17:31 Resp 18 07/12/20 17:31 BP 107/63 07/12/20 17:31 Pulse Ox 99 07/12/20 17:31 CV Function Including HR & BP: positive: Stable Pain Control: positive: Satisfactory Nausea & Vomiting: positive: Negative Mental Status: positive: Baseline Respiratory Status: Airway Patent Hydration Status: Satisfactory Anesthesia Complications: positive: None
[2020-07-12] MEDS: ESTROGENS, CONJUGATED CREAM 30 GM TUBE VG SCH (22:12)
[2020-07-13] MEDS: SODIUM CHLORIDE FLUSH 0.9% 10 ML SYRINGE IVP SCH ×2 (00:48→10:42)
[2020-07-13] MEDS: ONDANSETRON 4 MG/2 ML VIAL IVP PRN (00:48)
[2020-07-13 06:01] LABS: BASOPHILS % (AUTO) 0.4 %; EOSINOPHILS # (AUTO) 0.1 10^3/uL (0.0-0.7); EOSINOPHILS % (AUTO) 1.1 %; HGB - HEMOGLOBIN 13.7 g/dL (12.0-16.0); LYMPHOCYTES # (AUTO) 1.9 10^3/uL (1.5-3.5); LYMPHOCYTES % (AUTO) 22.8 %; MEAN CORPUSCULAR HEMOGLOBIN 32.8 pg (27.0-31.0); MEAN CORPUSCULAR HGB CONC 33.3 g/dL (32.0-36.0); MEAN CORPUSCULAR VOLUME 98.6 fL (81.0-99.0); MEAN PLATELET VOLUME 9.9 fL (7.9-10.8); MONOCYTES # (AUTO) 0.6 10^3/uL (0.0-1.0); MONOCYTES % (AUTO) 7.5 %; NEUTROPHILS # (AUTO) 5.7 10^3/uL (1.5-6.6); PLT - PLATELET COUNT 192 10^3/uL (130-450); RED BLOOD COUNT 4.18 10^6/uL (4.20-5.40); RED CELL DISTRIBUTION WIDTH 13.4 % (12.0-15.0); WHITE BLOOD COUNT 8.3 x10^3/uL (4.8-10.8)
[2020-07-13] MEDS: LEVOTHYROXINE 112 MCG TABLET PO SCH (06:11)
[2020-07-13 06:16] LABS: CREATININE 0.7 mg/dL (0.4-1.0)
[2020-07-13] MEDS: atenoloL 25 MG TABLET PO SCH (10:39)
[2020-07-13] MEDS: amLODIPine 5 MG TABLET PO SCH (10:39)
[2020-07-13] MEDS: LACTOBACILLUS RHAMNOSUS GG CAPSULE PO SCH (10:40)
[2020-07-13] MEDS: MULTIVITAMIN W/MINERALS TABLET PO SCH (10:40)
[2020-07-13] MEDS: PANTOPRAZOLE 40 MG TABLET PO SCH (10:40)
[2020-07-13] MEDS: SACCHAROMYCES BOULARDII 250 MG CAPSULE PO SCH (10:41)
[2020-07-13] MEDS: ESCITALOPRAM 10 MG TABLET PO SCH (10:42)
[2020-07-13] MEDS: ENOXAPARIN 40 MG/0.4 ML SYRINGE SUBQ SCH (10:43)
[2020-07-13] MEDS: LOPERAMIDE 2 MG CAPSULE PO PRN ×2 (12:40→17:47)
--- NOTE | 2020-07-13 13:27 | PROVIDER PROGRESS NOTE ---
Subjective - Prog Note Date Prog Note Date: 07/13/20 - Subjective Pt reports feeling: No change (taking diet ok. denies pain with eating. concerned about loose stool) Objective - Vital Signs/Intake & Output Reviewed Vital Signs: Yes Vital Signs: Vital Signs x48h Temp Pulse Resp BP Pulse Ox 07/13/20 07:55 36.8 C 63 16 135/75 H 97 Intake & Output: Intake & Output 07/10/20 07/11/20 07/12/20 07/13/20 23:59 23:59 23:59 23:59 Intake Total 700 1500 3770 Output Total 701 Balance -1 1500 3770 - Objective General Appearance: positive: No acute distress, Alert Eyes Bilateral: positive: Normal inspection, PERRL, EOMI Neck: positive: No JVD Respiratory: positive: No respiratory distress Abdomen: positive: No distention Neurologic/Psychiatric: positive: Oriented x3 - Lab Results Fish Bones: 07/13/20 05:10 07/13/20 05:10 Other Labs: Lab Results x24hrs 07/13/20 07/13/20 07/12/20 Range/Units 05:10 05:10 16:50 WBC 8.3 (4.8-10.8) x10^3/uL RBC 4.18 L (4.20-5.40) 10^6/uL Hgb 13.7 (12.0-16.0) g/dL Hct 41.2 (37.0-47.0) % MCV 98.6 (81.0-99.0) fL MCH 32.8 H (27.0-31.0) pg MCHC 33.3 (32.0-36.0) g/dL RDW 13.4 (12.0-15.0) % Plt Count 192 (130-450) 10^3/uL MPV 9.9 (7.9-10.8) fL Neut # (Auto) 5.7 (1.5-6.6) 10^3/uL Lymph # (Auto) 1.9 (1.5-3.5) 10^3/uL [place] # (Auto) 0.6 (0.0-1.0) 10^3/uL Eos # (Auto) 0.1 (0.0-0.7) 10^3/uL Baso # (Auto) 0.0 (0.0-0.1) 10^3/uL Absolute Nucleated RBC 0.00 x10^3/uL Nucleated RBC % 0.0 /100WBC Sodium 140 (135-145) mmol/L Potassium 3.8 (3.5-5.0) mmol/L Chloride 105 (101-111) mmol/L Carbon Dioxide 28 (21-32) mmol/L Anion Gap 7.0 (6-13) BUN 8 (6-20) mg/dL Creatinine 0.7 (0.4-1.0) mg/dL Estimated GFR (MDRD) 79 L (>89) Glucose 103 H (70-100) mg/dL Calcium 9.0 (8.5-10.3) mg/dL Stool Leukocytes, Qual NEGATIVE (Negative) - Diagnostic Imaging Diagnostic Imaging Results: positive: Read independently (cts read. large paraesophageal hernia stable the last 4 years. no gastric outlet obstruction) Sepsis Event Note (H) - Evaluation Current Stage of Sepsis: Ruled out Assessment/Plan - Problem List (1) Hiatal hernia Impression: she has had a large paraesophageal hernia without change the last 4 years. She has not had symptoms of gastic outlet obstruction. Her current symptoms are not related to the hernia. Decades ago paraesophageal hernias were routinely repair. The risk of having one has been found to be low and now these hernias are rarely repaired. Risk some degree of recurrence is about 25% Diet as tolerated Sometimes 5 soft meals per day is better. If she would like additional opinion she could speak with Dr Noel [facility] Dr Fausto Dior [facility] Dr Cosme is international known for Hiatal hernia surgery
--- NOTE | 2020-07-13 15:19 | Discharge Plan ---
Discharge Plan Problem Reviewed?: Yes Disposition: Home, Self Care Condition: Stable Prescriptions: Lactobacillus Rhamnosus GG [Culturelle] 1 cap PO DAILY #15 capsule Loperamide [Imodium] 2 mg PO QID PRN #20 capsule PRN Reason: Diarrhea amLODIPine [Norvasc] 5 mg PO DAILY #15 tablet Ondansetron HCl [Zofran] 4 mg PO Q6H PRN #15 tab PRN Reason: Nausea / Vomiting Diet: Soft Activity Restrictions: Activity as Tolerated Shower Restrictions: No (fall precaution) Instruction Topics: Loperamide tablets or capsules, Ondansetron tablets, Diarrhea, GERD Lifestyle Changes, Amlodipine Health Concerns: paraesophageal hernia Plan of Treatment: you have a large paraesophageal hernia without change the last 4 years, you has not had symptoms of gastic outlet obstruction, per surgeon's review, advise Diet as tolerated, Sometimes 5 soft meals per day is better. If you would like additional opinion she could speak with Dr Noel [facility], Dr Fausto [facility], Dr Cosme is international known for Hiatal hernia surgery. advise you followup with your PCP and has lens edger as out-pt. Care Goals: stabilization and improvement of your medical conditions Assessment: discussed with you and your son about the care plan, you understood. Additional Instructions or Follow Up instructions: You may followup with your PCP in one week, followup with lens edger as out-pt. Should your symptoms return or worsen, you may present ER or call 911 for help. No Smoking: If you smoke, Please STOP! Call for help. Follow-up with: Henry Rodriguez MD [Primary Care Provider] -
--- NOTE | 2020-07-13 15:35 | DISCHARGE SUMMARY ---
"Discharge Summary Admit Date: 07/08/20 Discharge Date: 07/13/20 Discharging Provider: Steven Shaw Primary Care Provider: Dr. Rodriguez Condition at Discharge: Stable Discharge Disposition: 01 Home, Self Care Discharge Facility Name: home - DIAGNOSES Discharge Diagnoses with Status of Each Condition: (1) Diarrhea improved and better controlled. C.diff is negative. stool culture was negative. pt is prescribed Imodium PRN. pt had CT of abdomen and pelvis and colonoscopy which show many diverticulosis otherwise were unremarkable. advise pt followup with GI doctor as out-pt. pt report she always has lots of stress which could worsen GI symptoms. advise control of her stress, and learn of relaxation which might help control her symptoms. such as in hospital, she worried she had DVT, which test show she did not have. (2) Chest pain pt had hx of chest burning sensation since she had a large paraesophageal hernia. pt has cardiac workup in this hospital course. pt had serial troponin test, ECHO, EKG, stress test, ruling her out for NM. She underwent a pharmaceutical stress test, there were no ischemic changes and the nuclear scan was probably negative for significant ischemia. pt decline GI cocktail meds, pt had PPI and pepcid at her home meds list, advise pt can take TUMs as needed (3) large paraesophageal hernia pt had hx of large hernia. she report she declined to have surgery before. In this hospital course, pt had CT of chest, EGD, and two GI surgeon consulted for her. pt is alert and oriented plus three. she was on and off thinking if she need surgery. finally after two surgeon consult, she clearly stated she will not pursue surgery.pt decline GI cocktail meds, pt had PPI and pepcid at her home meds list, advise pt can take TUMs as needed. advise pt followup with GI doctor as out-pt as well. (4) Hypertension stable. pt is prescribed Amlodipine plus her home Atenolol for BP control (5) Mitral regurgitation stable. moderate mitral regurgitation. (6) Hyperlipidemia stable (7) Hypothyroidism stable (8) Anxiety and depression pt had home Lexapro, because pt think it has significant side effect of meds, she stop Lexapro. (9)GERD It is chronic. unfortunately pt had a large paraesophageal hernia. pt declined to have surgical intervention. pt is advised to have out-pt GI consult to continue manage this chronic condition. pt decline GI cocktail meds, pt had PPI and pepcid at her home meds list, advise pt can take TUMs as needed. advise pt has small meal with more meal times, siting position for meal, reduce night time meal special before going to sleep. - HPI History of Present Illness: This is a 85-yrs old female with a medical history significant for HTN, a large paraesophageal hernia, cardiac ablation for possible SVT, presented ER for complain of heart burning chest pain, loss of appetite for several days, diarrhea for 7 days (HPI state no diarrhea). - CONSULTS | PROCEDURES Consultations: Dr. Lo and Dr. Lozano Procedures: EGD and colonoscopy - HOSPITAL COURSE Hospital Course: pt was admitted for heart burning chest pain, loss of appetite for several days, diarrhea. pt had serial troponin, EKG, ECHO and stress test which indicated ruling her out for NM. She underwent a pharmaceutical stress test, there were no ischemic changes and the nuclear scan was probably negative for significant ischemia. pt had hx of large paraesophageal hernia, she declined to have surgery before. pt also had negative C.diff test in the hospital. pt had EGD and colonoscopy, and CT of chest and abdomen and pelvis, which were unremarkable except her large hernia and many diverticulosis. after two surgeon consult, pt declined again to have surgery to remove her hernia. pt was advised to followup with GI as out-pt. UA culture indicated it was contaminated. pt was d/c at stable conditions. - ALLERGIES Allergies/Adverse Reactions: Allergies Allergy/AdvReac Type Severity Reaction Status Date / Time acetaminophen [From Percocet] Allergy Unknown Verified 07/08/20 15:56 gabapentin Allergy Unknown Verified 07/08/20 15:56 oxycodone [From Percocet] Allergy Unknown Verified 07/08/20 15:56 Sulfa (Sulfonamide Allergy Hives Verified 07/08/20 15:56 Antibiotics) - MEDICATIONS Home Medications: Ambulatory Orders Medication Instructions Recorded Confirmed Levothyroxine [Synthroid] 112 mcg ORAL DAILY 09/27/14 07/08/20 Omeprazole [Prilosec] 20 mg ORAL BID 09/27/14 07/08/20 Simvastatin 20 mg ORAL DAILY PM 09/27/14 07/08/20 atenoloL [Atenolol] 25 mg PO DAILY #30 tablet 09/22/19 07/08/20 Famotidine 20 mg PO DAILY 07/08/20 07/08/20 Lactobacillus Rhamnosus GG 1 cap PO DAILY #15 capsule 07/13/20 [Culturelle] Loperamide [Imodium] 2 mg PO QID PRN #20 capsule 07/13/20 Ondansetron HCl [Zofran] 4 mg PO Q6H PRN #15 tab 07/13/20 amLODIPine [Norvasc] 5 mg PO DAILY #15 tablet 07/13/20 - PHYSICAL EXAM AT DISCHARGE General Appearance: positive: No acute distress, Alert. negative: Lethargic Eyes Bilateral: positive: Normal inspection, PERRL, No lid inflammation ENT: positive: ENT inspection nml, No signs of dehydration. negative: Purulent nasal drainage Neck: positive: Nml inspection, Thyroid nml, Trachea midline. negative: Thyromegaly, Stiff neck, Tracheal deviation Respiratory: positive: Chest non-tender, No respiratory distress, Breath sounds nml. negative: Wheezes, Rales, Rhonchi Cardiovascular: positive: Regular rate & rhythm, Diastolic murmur. negative: Irregularly irregular, Tachycardia, Bradycardia, Systolic murmur Peripheral Pulses: positive: 2+ Abdomen: positive: Non-tender, No organomegaly, Nml bowel sounds, No distention. negative: Tenderness, Guarding, Rebound Back: positive: Nml inspection Skin: positive: Color nml, No rash, Warm, Dry. negative: Cyanosis, Diaphoresis, Pallor Extremities: positive: Non-tender, Full ROM, Nml appearance. negative: Calf tenderness, Joao's sign/cords Neurologic/Psychiatric: positive: Oriented x3, Motor nml, Sensation nml, Mood/affect nml. negative: Weakness, Sensory loss, Facial droop, Slurred/abnml speech, Depressed mood/affect - LABS Result Diagrams: 07/13/20 05:10 07/13/20 05:10 - SEPSIS Current Stage of Sepsis: Ruled out - FOLLOW UP Follow Up: you have a large paraesophageal hernia without change the last 4 years, you has not had symptoms of gastic outlet obstruction, per surgeon's review, advise Diet as tolerated, Sometimes 5 soft meals per day is better. If you would like additional opinion she could speak with Dr Noel [facility], Dr Fausto Dior [facility], Dr Cosme is international known for Hiatal hernia surgery. advise you followup with your PCP and has home worker as out-pt. You may followup with your PCP in one week, followup with home worker as out-pt. Should your symptoms return or worsen, you may present ER or call 911 for help. - TIME SPENT Time Spent in Discharge (Minutes): 30"
[2020-07-13 17:49] VITALS: BP 140/67
== END 2020-07-13 17:54 | disposition home or self-care (01) | DRG 392 ==
LOC: ED 15:45 → MS2 17:27 → INTOOBSV 17:39 → OBSVTOIN 17:39 → UNDODISIN 07-13 17:54
PROVIDERS: ADMIT Internal Medicine; ATTEND Nurse Practitioner Gerontology
PROC: 0DB48ZX Excision of Esophagogastric Junction, Via Natural or Artificial Opening Endoscopic, Diagnostic (ICD-10-PCS; 2020-07-12)
PROC: 0DBE8ZX Excision of Large Intestine, Via Natural or Artificial Opening Endoscopic, Diagnostic (ICD-10-PCS; 2020-07-12)
PROC: 0DB98ZX Excision of Duodenum, Via Natural or Artificial Opening Endoscopic, Diagnostic (ICD-10-PCS; principal; 2020-07-12 14:45)
PROC: 0DB68ZX Excision of Stomach, Via Natural or Artificial Opening Endoscopic, Diagnostic (ICD-10-PCS; 2020-07-12 14:45)
DX: R07.9 Chest pain, unspecified (principal); N39.0 Urinary tract infection, site not specified; K44.9 Diaphragmatic hernia without obstruction or gangrene; I10 Essential (primary) hypertension; E03.9 Hypothyroidism, unspecified; K21.9 Gastro-esophageal reflux disease without esophagitis; E78.00 Pure hypercholesterolemia, unspecified; K52.9 Noninfective gastroenteritis and colitis, unspecified; K57.30 Diverticulosis of large intestine without perforation or abscess without bleeding; K29.70 Gastritis, unspecified, without bleeding; K64.8 Other hemorrhoids; I34.0 Nonrheumatic mitral (valve) insufficiency; E78.5 Hyperlipidemia, unspecified; F41.9 Anxiety disorder, unspecified; F32.9 Major depressive disorder, single episode, unspecified; Z79.899 Other long term (current) drug therapy; Z86.711 Personal history of pulmonary embolism; Z86.79 Personal history of other diseases of the circulatory system; Z87.440 Personal history of urinary (tract) infections; Z82.49 Family history of ischemic heart disease and other diseases of the circulatory system
CPT/HCPCS: 36415; 71045; 71260; 74177; 78452; 80048; 80053; 80061; 81001; 83630; 83690; 83735; 84443; 84484; 85025; 85379; 87015; 87045; 87046; 87086; 87177; 87209; 87272; 87329; 87427; 87493; 88305; 93005; 93017; 93306; 93970; 96372; 96374; 99284; 99285; A9270; A9500; G0378; J1650; J2785; Q0167; Q9967; 81003; 81599; 83721

== ENCOUNTER 2020-07-20 18:30 | Outpatient (CLI) | payer MEDICARE, OTHER | END 2020-07-20 18:31 | disposition critical access hospital (66) | LOC: MERGE 18:30 → EMS 18:30 | PROVIDERS: ATTEND Surgery | DX: R29.818 Other symptoms and signs involving the nervous system (principal); R20.0 Anesthesia of skin | CPT/HCPCS: A0425; A0429 ==

== ENCOUNTER 2020-07-20 18:51 | Emergency (ER) | payer MEDICARE, OTHER ==
--- NOTE | 2020-07-20 19:28 | CT Report ---
PROCEDURE: Head W/O Stroke Protocol INDICATIONS: L facial numbness TECHNIQUE: Noncontrast 4.5 mm thick angled axial sections acquired from the foramen magnum to the vertex, with c oronal reformats. For radiation dose reduction, the following was used: automated exposure control, adjustment of mA and/or kV according to patient size. COMPARISON: FINDINGS: Image quality: Excellent. CSF spaces: Basal cisterns are patent. No extra-axial fluid collections. Ventricles are normal in size and shape. Brain: No midline shift. No intracranial masses or hemorrhage. [place]-white matter interface is norm al. Skull and face: Calvarium and visualized facial bones are intact, without suspicious lesions. Sinuses: Visualized sinuses and mastoids are clear. IMPRESSION: No acute intracranial disease process. Findings discussed with Dr. Flood on 07/20/2020 at 1925 hours. This study fulfills neurological imaging criteria for inclusion or exclusion of acute stroke therapie s based on available published neurological imaging guidelines. Reviewed by: Ange Humphries MD, PhD on 07/20/2020 7:27 PM PDT Approved by: Ange Humphries MD, PhD on 07/20/2020 7:27 PM PDT Station ID: [id number]
[2020-07-20 19:32] LABS: BASOPHILS # (AUTO) 0.1 10^3/uL (0.0-0.1); BASOPHILS % (AUTO) 0.8 %; EOSINOPHILS # (AUTO) 0.1 10^3/uL (0.0-0.7); EOSINOPHILS % (AUTO) 1.1 %; HGB - HEMOGLOBIN 15.2 g/dL (12.0-16.0); LYMPHOCYTES # (AUTO) 2.3 10^3/uL (1.5-3.5); LYMPHOCYTES % (AUTO) 34.5 %; MEAN CORPUSCULAR HEMOGLOBIN 32.5 pg (27.0-31.0); MEAN CORPUSCULAR HGB CONC 33.1 g/dL (32.0-36.0); MEAN CORPUSCULAR VOLUME 98.3 fL (81.0-99.0); MEAN PLATELET VOLUME 9.9 fL (7.9-10.8); MONOCYTES # (AUTO) 0.6 10^3/uL (0.0-1.0); MONOCYTES % (AUTO) 8.9 %; NEUTROPHILS # (AUTO) 3.6 10^3/uL (1.5-6.6); NEUTROPHILS % (AUTO) 54.4 %; PLT - PLATELET COUNT 187 10^3/uL (130-450); RED BLOOD COUNT 4.67 10^6/uL (4.20-5.40); RED CELL DISTRIBUTION WIDTH 13.5 % (12.0-15.0); WHITE BLOOD COUNT 6.5 x10^3/uL (4.8-10.8)
--- NOTE | 2020-07-20 19:36 | ED Physician Documentation ---
PD HPI FOCAL NEURO - Stated complaint Stated Complaint: STROKE - Chief complaint Chief Complaint: Neuro - History obtained from History obtained from: Patient - History of Present Illness Timing - onset: How many hours ago (1) Timing - duration: Hours (1) Timing - details: Abrupt onset Severity of deficit: Mild Weakness: No: Face, Arm, Hand, Leg, Foot, Right, Left Numbness: Face (left lower face). No: Arm, Hand, Leg, Foot, Right, Left Associated symptoms: No: Headache, Nausea / vomiting, Seizure, Syncope, Fall, Head injury, Chest pain, Neck pain, Back pain, Fever Baseline status: positive: A&OX3, ambulatory, indep Similar symptoms before: Has not had sx before Recently seen: Not recently seen Review of Systems Ten Systems: 10 systems reviewed and negative Constitutional: denies: Fever, Chills Cardiac: denies: Chest pain / pressure, Palpitations Respiratory: denies: Dyspnea, Cough GI: denies: Abdominal Pain, Nausea, Vomiting, Diarrhea : denies: Dysuria, Frequency, Hesitancy Skin: denies: Rash Musculoskeletal: denies: Neck pain, Back pain Neurologic: denies: Headache PD PAST MEDICAL HISTORY - Past Medical History Past Medical History: No - Past Surgical History Past Surgical History: No - Present Medications Home Medications: Ambulatory Orders Medication Instructions Recorded Confirmed Albuterol Sulfate [Proair Hfa 07/20/20 Inhaler] Aspirin Chewable [St Alec 81 mg PO DAILY 07/20/20 07/20/20 Aspirin] Cephalexin [Keflex] 500 mg PO Q6H #28 capsule 07/20/20 Estrogens, Conjugated Cream 07/20/20 [Premarin Cream] Famotidine [Pepcid] 20 mg PO DAILY 07/20/20 07/20/20 Levothyroxine Sodium [Synthroid] 112 mcg ORAL DAILY 07/20/20 07/20/20 Omeprazole 40 mg PO BID 07/20/20 07/20/20 Simvastatin 20 mg PO DAILY 07/20/20 07/20/20 amLODIPine [Norvasc] 5 mg PO DAILY 07/20/20 07/20/20 buPROPion [Wellbutrin Sr] 100 mg PO DAILY 07/20/20 07/20/20 - Allergies Allergies/Adverse Reactions: Allergies Allergy/AdvReac Type Severity Reaction Status Date / Time acetaminophen [From Percocet] Allergy Rash Verified 07/20/20 19:20 gabapentin Allergy Hives Verified 07/20/20 19:19 hydrocodone [From Vicodin] Allergy Rash Verified 07/20/20 19:21 nitrofurantoin Allergy Hives Verified 07/20/20 19:21 [From Macrobid] oxycodone [From Percocet] Allergy Rash Verified 07/20/20 19:20 Sulfa (Sulfonamide Allergy Hives Verified 07/20/20 19:21 Antibiotics) - Living Situation Living Situation: reports: With family Living Arrangement: reports: At home - Social History Does the pt smoke?: No Does the pt drink ETOH?: No Does the pt have substance abuse?: No - Family History Family history: reports: Non contributory PD ED PE NORMAL - Vitals Vital signs reviewed: Yes - General General: Alert and oriented X 3, No acute distress, Well developed/nourished - HEENT HEENT: PERRL, Ears normal, Moist mucous membranes, Pharynx benign, Dentition benign - Neck Neck: Supple, no meningeal sign - Cardiac Cardiac: RRR, Strong equal pulses - Respiratory Respiratory: No respiratory distress, Clear bilaterally - Abdomen Abdomen: Soft, Non tender, Non distended - Derm Derm: Warm and dry - Extremities Extremities: No edema - Neuro Neuro: Alert and oriented X 3, 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, No motor deficit, No sensory deficit, Normal speech Eye Opening: Spontaneous Motor: Obeys Commands Verbal: Oriented GCS Score: 15 - Psych Psych: Normal mood, Normal affect - Free text exam Free text exam: NIHSS 0 NIHSS - Time Time: 19:10 - Level of Consciousness Level of consciousness: (0) Alert, Keenly responsive LOC Questions: (0) Answers both Q's correct LOC Commands: (0) Performs both correctly - Gaze Best Gaze: (0) Normal - Visual Visual: (0) No loss - Facial Palsy Facial Palsy: (0) Normal, symmetrical movement - Motor Arms (both separate) Motor Arm (right): (0) No drift Motor Arm (left): (0) No drift - Motor Legs (both separate) Motor Leg (right): (0) No drift Motor Leg (left): (0) No drift - Limb Ataxia Limb Ataxia: (0) Absent - Sensory Sensory: (0) Normal - Best Language Best Language: (0) No aphasia - Dysarthria Dysarthria: (0) Normal - Extinction and Inattention (formally neg Extinction and inattention: (0) No abnormality - Total Score/Results Total Score/Result: 0 Results - Vitals Vitals: Oxygen O2 Source Room air - EKG (time done) 1918 Rate: Rate (enter#) (58) Rhythm: NSR [place]: Normal Intervals: Normal NV QRS: Normal, LVH Ischemia: Normal ST segments - Labs Labs: Microbiology 07/20/20 19:40 Urine Culture - Preliminary Urine,Clean Catch CULTURE IN PROGRESS. RESULTS TO FOLLOW. Laboratory Tests 07/20/20 07/20/20 07/20/20 19:20 19:25 19:25 WBC 6.5 RBC 4.67 Hgb 15.2 Hct 45.9 MCV 98.3 MCH 32.5 H MCHC 33.1 RDW 13.5 Plt Count 187 MPV 9.9 Neut # (Auto) 3.6 Lymph # (Auto) 2.3 [place] # (Auto) 0.6 Eos # (Auto) 0.1 Baso # (Auto) 0.1 Absolute Nucleated RBC 0.00 Nucleated RBC % 0.0 PT 11.9 INR 1.1 APTT 25.8 Sodium Potassium Chloride Carbon Dioxide Anion Gap BUN Creatinine Estimated GFR (MDRD) Glucose POC Whole Bld Glucose Calcium Total Bilirubin AST ALT Alkaline Phosphatase Troponin I High Sens 8.3 Total Protein Albumin Globulin Albumin/Globulin Ratio Lipase Urine Color Urine Clarity Urine pH Ur Specific [place] Urine Protein Urine Glucose (UA) Urine Ketones Urine Occult Blood Urine Nitrite Urine Bilirubin Urine Urobilinogen Ur Leukocyte Esterase Urine RBC Urine WBC Ur Squamous Epith Cells Urine Bacteria Ur Microscopic Review Urine Culture Comments 07/20/20 07/20/20 07/20/20 19:25 19:25 19:40 WBC RBC Hgb Hct MCV MCH MCHC RDW Plt Count MPV Neut # (Auto) Lymph # (Auto) [place] # (Auto) Eos # (Auto) Baso # (Auto) Absolute Nucleated RBC Nucleated RBC % PT INR APTT Sodium 138 Potassium 4.0 Chloride 104 Carbon Dioxide 23 Anion Gap 11.0 BUN 14 Creatinine 0.6 Estimated GFR (MDRD) 95 Glucose 100 POC Whole Bld Glucose 88 Calcium 9.2 Total Bilirubin 0.8 AST 20 ALT 19 Alkaline Phosphatase 51 Troponin I High Sens Total Protein 7.2 Albumin 4.0 Globulin 3.2 Albumin/Globulin Ratio 1.3 Lipase 21 L Urine Color LT. YELLOW Urine Clarity HAZY Urine pH 7.5 Ur Specific [place] 1.010 Urine Protein NEGATIVE Urine Glucose (UA) NEGATIVE Urine Ketones TRACE Urine Occult Blood NEGATIVE Urine Nitrite NEGATIVE Urine Bilirubin NEGATIVE Urine Urobilinogen 0.2 (NORMAL) Ur Leukocyte Esterase MODERATE H Urine RBC 0-5 Urine WBC 6-10 H Ur Squamous Epith Cells FEW Squamous Urine Bacteria Few Ur Microscopic Review INDICATED Urine Culture Comments INDICATED - Rads (name of study) head CT Radiology: Prelim report reviewed, EMP read contemporaneously, See rad report (no acute abnormalities.) PD MEDICAL DECISION MAKING - ED course Complexity details: reviewed results, re-evaluated patient, considered differential, d/w patient, d/w family ED course: Patient with a slight paresthesia to the left mandibular area, earlier today. Otherwise asymptomatic. Symptoms resolved in the emergency department. Unclear etiology. Not consistent with stroke. Normal head CT. She does have a UTI and we will treat her for this. We will have her follow-up with her doctor for further care. Patient is well-appearing, nontoxic. Afebrile. Patient counseled regarding signs and symptoms for which I believe and urgent re-ev aluation would be necessary. Patient with good understanding of and agreement to plan and is comfortable going home at this time This document was made in part using voice recognition software. While efforts are made to proofread this document, sound alike and grammatical errors may occur. Departure - Departure Disposition: 01 Home, Self Care Clinical Impression: Paresthesia UTI (urinary tract infection) Qualifiers: Urinary tract infection type: acute cystitis Hematuria presence: without hematuria Qualified Code(s): N30.00 - Acute cystitis without hematuria Condition: Good Instructions: ED UTI Cystitis Female, ED Paraesthesias Follow-Up: Henry Rodriguez MD [Primary Care Provider] - Within 1 week Prescriptions: Cephalexin [Keflex] 500 mg PO Q6H #28 capsule Comments: The cause of your symptoms is unclear. Follow-up with your doctor for further care. Take all antibiotics until gone. Discharge Date/Time: 07/20/20 22:15
[2020-07-20 19:37] LABS: INR 1.1 (0.8-1.2); PT - PROTHROMBIN TIME 11.9 secs (9.9-12.6)
[2020-07-20 19:44] LABS: PARTIAL THROMBOPLASTIN TIME 25.8 secs (24.9-33.3)
[2020-07-20 19:45] LABS: ALBUMIN/GLOBULIN RATIO 1.3 (1.0-2.2); BILIRUBIN,TOTAL 0.8 mg/dL (0.2-1.0); CALCIUM 9.2 mg/dL (8.5-10.3); CREATININE 0.6 mg/dL (0.4-1.0); TOTAL PROTEIN 7.2 g/dL (6.7-8.2)
[2020-07-20 19:48] LABS: BILIRUBIN,URINE NEGATIVE (NEGATIVE); GLUCOSE, URINE (UA) NEGATIVE (NEGATIVE); KETONES,URINE (UA) TRACE mg/dL (NEGATIVE); LEUKOCYTE ESTERASE, URINE MODERATE (NEGATIVE); NITRITE,URINE NEGATIVE (NEGATIVE); OCCULT BLOOD,URINE NEGATIVE (NEGATIVE); PH,URINE 7.5 PH (5.0-7.5); PROTEIN,URINE NEGATIVE (NEGATIVE); UROBILINOGEN,URINE 0.2 (NORMAL) E.U./dL (NORMAL)
[2020-07-20 19:51] LABS: CLARITY,URINE HAZY (CLEAR)
[2020-07-20 20:01] LABS: RBC,URINE 0-5 /HPF (0-5); SQUAMOUS EPITHELIAL CELL,UR FEW Squamous (<= Few)
[2020-07-20 20:02] LABS: BACTERIA,URINE Few /HPF (None Seen)
[2020-07-20] MEDS ORDERED: cephALEXin 250 MG CAPSULE PO STA (21:28)
[2020-07-20 21:54] VITALS: BP 149/74
== END 2020-07-20 22:15 | disposition home or self-care (01) ==
LOC: MERGE 18:51 → ED 18:51
DX: R20.2 Paresthesia of skin (principal); N30.00 Acute cystitis without hematuria
CPT/HCPCS: 36415; 70450; 80053; 81001; 83690; 84484; 85025; 85610; 85730; 87086; 93005; 99284; A9270; 81003

== ENCOUNTER 2021-11-02 16:13 | Emergency (ER) | payer MEDICARE, OTHER ==
[2021-11-02 16:34] VITALS: BP 168/89
== END 2021-11-02 17:51 | disposition left against medical advice (07) ==
LOC: ED 16:13
DX: Z53.21 Procedure and treatment not carried out due to patient leaving prior to being seen by health care provider (principal)

== ENCOUNTER 2021-12-06 13:07 | Outpatient (CLI) | payer MEDICARE, OTHER | END 2021-12-06 13:08 | disposition EMS.NT | LOC: EMS 13:07 | DX: Z03.89 Encounter for observation for other suspected diseases and conditions ruled out (principal) ==

== ENCOUNTER 2023-04-04 15:31 | Emergency (ER) | payer MEDICARE, OTHER ==
--- NOTE | 2023-04-04 15:52 | ED Physician Documentation ---
PD HPI ABD PAIN - Stated complaint Stated Complaint: DIARRHEA/CRAMPS - Chief complaint Chief Complaint: Abd Pain - History obtained from History obtained from: Patient - Additional information Additional information: 87-year-old woman presents with side pain and a spot on her back with loose stools that is reminiscent of prior shingles that she had about 6 months ago. She says the pain in the spot started yesterday and is on the left side of her back. She also wonders if she might have a UTI and wants to be checked for that. Denies nausea, diarrhea or fevers. 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, Chronic bladder infection, Other HEENT: None Psych: None Musculoskeletal: Osteoarthritis Derm: None - Past Surgical History Past Surgical History: No General: Cholecystectomy, Appendectomy Ortho: Knee replacement Cardiovascular: Other HEENT: Cataracts - Present Medications Home Medications: Ambulatory Orders Medication Instructions Recorded Confirmed Levothyroxine [Synthroid] 112 mcg ORAL DAILY 09/27/14 07/08/20 Omeprazole [Prilosec] 20 mg ORAL BID 09/27/14 07/08/20 Simvastatin 20 mg ORAL DAILY PM 09/27/14 07/08/20 atenoloL [Atenolol] 25 mg PO DAILY #30 tablet 09/22/19 07/08/20 Famotidine 20 mg PO DAILY 07/08/20 07/08/20 Lactobacillus Rhamnosus GG 1 cap PO DAILY #15 capsule 07/13/20 [Culturelle] Loperamide [Imodium] 2 mg PO QID PRN #20 capsule 07/13/20 amLODIPine [Norvasc] 5 mg PO DAILY #15 tablet 07/13/20 ondansetron HCL [Zofran] 4 mg PO Q6H PRN #15 tab 07/13/20 Albuterol Sulfate [Proair Hfa 07/20/20 Inhaler] Aspirin Chewable [St Alec 81 mg PO DAILY 07/20/20 07/20/20 Aspirin] Estrogens, Conjugated Cream 07/20/20 [Premarin Cream] Famotidine [Pepcid] 20 mg PO DAILY 07/20/20 07/20/20 Levothyroxine Sodium [Synthroid] 112 mcg ORAL DAILY 07/20/20 07/20/20 Omeprazole 40 mg PO BID 07/20/20 07/20/20 Simvastatin 20 mg PO DAILY 07/20/20 07/20/20 amLODIPine [Norvasc] 5 mg PO DAILY 07/20/20 07/20/20 buPROPion [Wellbutrin Sr] 100 mg PO DAILY 07/20/20 07/20/20 cephALEXin [Keflex] 500 mg PO Q6H #28 capsule 07/20/20 - Allergies Allergies/Adverse Reactions: Allergies Allergy/AdvReac Type Severity Reaction Status Date / Time acetaminophen [From Percocet] Allergy Unknown Verified 04/04/23 15:40 gabapentin Allergy Unknown Verified 04/04/23 15:40 hydrocodone [From Vicodin] Allergy Rash Verified 04/04/23 15:40 nitrofurantoin Allergy Hives Verified 04/04/23 15:40 [From Macrobid] oxycodone [From Percocet] Allergy Unknown Verified 04/04/23 15:40 Sulfa (Sulfonamide Allergy Hives Verified 04/04/23 15:40 Antibiotics) - Social History Does the pt smoke?: No Smoking Status: Never smoker Does the pt drink ETOH?: No Does the pt have substance abuse?: No - Immunizations Immunizations are current?: Yes - POLST Patient has POLST: Yes PD ED PE NORMAL - Vitals Vital signs reviewed: Yes - General General: Alert and oriented X 3, No acute distress - Cardiac Cardiac: RRR, No murmur - Respiratory Respiratory: No respiratory distress, Clear bilaterally - Abdomen Abdomen: Normal bowel sounds, Soft, Non tender - Back Back: No CVA TTP, No spinal TTP - Derm Derm: Other (There is no shingles type rash on the back. I took a picture of her back and showed it to her and she admits the spot is now gone.) - Neuro Neuro: Alert and oriented X 3, Normal speech Results - Vitals Vitals: Vital Signs - 24 hr 04/04/23 15:35 Temperature 36.4 C L Heart Rate 70 Respiratory 20 Rate Blood Pressure 166/103 H O2 Saturation 98 Oxygen O2 Source [With Activity] Room air O2 Source Room air - Labs Labs: Laboratory Tests 04/04/23 04/04/23 04/04/23 16:10 16:10 16:16 WBC 5.4 RBC 4.38 Hgb 13.2 Hct 41.1 MCV 93.8 MCH 30.1 MCHC 32.1 RDW 15.4 H Plt Count 171 MPV 9.1 Neut # (Auto) 3.4 Lymph # (Auto) 1.4 L [place] # (Auto) 0.5 Eos # (Auto) 0.1 Baso # (Auto) 0.0 Absolute Nucleated RBC 0.00 Nucleated RBC % 0.0 Sodium 140 Potassium 3.6 Chloride 107 Carbon Dioxide 27 Anion Gap 6.0 BUN 20 Creatinine 0.6 Estimated GFR (MDRD) 94 Glucose 117 H Calcium 9.0 Total Bilirubin 0.8 AST 21 ALT 23 Alkaline Phosphatase 77 Total Protein 7.3 Albumin 3.9 Globulin 3.4 Albumin/Globulin Ratio 1.1 Urine Color YELLOW Urine Clarity CLEAR Urine pH 6.0 Ur Specific [place] 1.015 Urine Protein NEGATIVE Urine Glucose (UA) NEGATIVE Urine Ketones NEGATIVE Urine Occult Blood NEGATIVE Urine Nitrite NEGATIVE Urine Bilirubin NEGATIVE Urine Urobilinogen 2 H Ur Leukocyte Esterase NEGATIVE Ur Microscopic Review NOT INDICATED Urine Culture Comments NOT INDICATED PD Medical Decision Making - ED course ED course: This is a delores 87-year-old woman presents thinking she has shingles based on a spot on her back that she says started yesterday. At this point said spot is gone. She has a benign exam. She was also worried about a UTI and given her age labs and urinalysis were checked with normal CBC, CMP, and urinalysis. She was relieved and remained nontoxic and well-appearing on repeat exam and declined further needs. Departure - Departure Disposition: 01 Home, Self Care Clinical Impression: Loose stools Back pain Qualifiers: Back pain location: thoracic back pain Chronicity: acute Back pain laterality: left Qualified Code(s): M54.6 - Pain in thoracic spine Condition: Good Record reviewed to determine appropriate education?: Yes Instructions: ED Acute Pain [facility] Comments: Again, thankfully no evidence of shingles or other acute illness. Keep an eye on yourself and return if you develop new or worrisome symptoms. Follow-up with your primary care physician this week for recheck.
[2023-04-04 16:17] LABS: BASOPHILS % (AUTO) 0.4 %; EOSINOPHILS # (AUTO) 0.1 10^3/uL (0.0-0.7); EOSINOPHILS % (AUTO) 1.7 %; HCT - HEMATOCRIT 41.1 % (37.0-47.0); HGB - HEMOGLOBIN 13.2 g/dL (12.0-16.0); LYMPHOCYTES # (AUTO) 1.4 10^3/uL (1.5-3.5); LYMPHOCYTES % (AUTO) 25.2 %; MEAN CORPUSCULAR HEMOGLOBIN 30.1 pg (27.0-31.0); MEAN CORPUSCULAR HGB CONC 32.1 g/dL (32.0-36.0); MEAN CORPUSCULAR VOLUME 93.8 fL (81.0-99.0); MEAN PLATELET VOLUME 9.1 fL (7.9-10.8); MONOCYTES # (AUTO) 0.5 10^3/uL (0.0-1.0); MONOCYTES % (AUTO) 9.1 %; NEUTROPHILS # (AUTO) 3.4 10^3/uL (1.5-6.6); NEUTROPHILS % (AUTO) 63.2 %; PLT - PLATELET COUNT 171 10^3/uL (130-450); RED BLOOD COUNT 4.38 10^6/uL (4.20-5.40); RED CELL DISTRIBUTION WIDTH 15.4 % (12.0-15.0); WHITE BLOOD COUNT 5.4 x10^3/uL (4.8-10.8)
[2023-04-04 16:25] LABS: BILIRUBIN,URINE NEGATIVE (NEGATIVE); GLUCOSE, URINE (UA) NEGATIVE (NEGATIVE); KETONES,URINE (UA) NEGATIVE (NEGATIVE); LEUKOCYTE ESTERASE, URINE NEGATIVE (NEGATIVE); NITRITE,URINE NEGATIVE (NEGATIVE); OCCULT BLOOD,URINE NEGATIVE (NEGATIVE); PROTEIN,URINE NEGATIVE (NEGATIVE); UROBILINOGEN,URINE 2 E.U./dL (NORMAL)
[2023-04-04 16:27] LABS: CLARITY,URINE CLEAR (CLEAR)
[2023-04-04 16:28] LABS: ALBUMIN 3.9 g/dL (3.2-5.5); ALBUMIN/GLOBULIN RATIO 1.1 (1.0-2.2); BILIRUBIN,TOTAL 0.8 mg/dL (0.2-1.0); CREATININE 0.6 mg/dL (0.4-1.0); POTASSIUM 3.6 mmol/L (3.5-5.0); TOTAL PROTEIN 7.3 g/dL (6.7-8.2)
[2023-04-04 16:52] VITALS: BP 160/100
== END 2023-04-04 16:48 | disposition home or self-care (01) ==
LOC: ED 15:31
DX: R19.7 Diarrhea, unspecified (principal); M54.6 Pain in thoracic spine
CPT/HCPCS: 36415; 80053; 81001; 81003; 85025; 87086; 99282; 99283

== ENCOUNTER 2023-04-21 09:03 | Emergency (ER) | payer MEDICARE, OTHER ==
--- NOTE | 2023-04-21 09:28 | ED Physician Documentation ---
PD HPI CHEST PAIN - Stated complaint Stated Complaint: CHEST HEAVINESS/FEET SWELLING - Chief complaint Chief Complaint: Cardiac - History obtained from History obtained from: Patient - History of Present Illness Timing - onset: Today Timing - onset during: Rest Timing - duration: Minutes Timing - details: Abrupt onset, Still present Pain level max: 9 Pain level now: 5 Quality: Pressure Location: Substernal Radiation: No: Jaw, Neck, Back, Abdominal, Left upper extremity, Right upper extremity Improved by: Nitro Worsened by: No: Exertion, Inspiration, Eating, Movement, Palpation, Position Associated symptoms: No: Shortness of air, Diaphoresis, Nausea, Vomiting, Feeling faint / dizzy, General Weakness, Palpitations, Cough Similar symptoms before: Has not had sx before Recently seen: Not recently seen - Additional information Additional information: 87 y/o Sruthi Hollins was up for the day early and felt a pressure in her chest. She did not eat or take her medications . She was sitting on her recliner when she developed substernal chest pressure 9/10 without radiation, diaphoresis, nausea or light headedness. Review of Systems Constitutional: denies: Fever, Chills, Myalgias Eyes: denies: Decreased vision Ears: denies: Ear pain Nose: denies: Rhinorrhea / runny nose, Congestion Throat: denies: Sore throat Cardiac: reports: Chest pain / pressure, Pedal edema. 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, Chronic bladder infection, Other HEENT: None Psych: None Musculoskeletal: Osteoarthritis Derm: None - Past Surgical History Past Surgical History: No General: Cholecystectomy, Appendectomy Ortho: Knee replacement Cardiovascular: Other HEENT: Cataracts - Present Medications Home Medications: Ambulatory Orders Medication Instructions Recorded Confirmed atenoloL [Atenolol] 25 mg PO DAILY #30 tablet 09/22/19 04/21/23 Albuterol Sulfate [Proair Hfa 1 - 2 puffs IH Q4HR PRN 07/20/20 04/21/23 Inhaler] Levothyroxine Sodium [Synthroid] 112 mcg ORAL DAILY 07/20/20 04/21/23 Simvastatin 20 mg PO DAILY PM 07/20/20 04/21/23 amLODIPine [Norvasc] 5 mg PO DAILY 07/20/20 04/21/23 buPROPion [Wellbutrin Sr] 100 mg PO DAILY 07/20/20 04/21/23 Ascorbic Acid [Vitamin C] 500 mg ORAL DAILY 04/21/23 04/21/23 Biotin 5,000 mcg PO DAILY 04/21/23 04/21/23 Juan/D3/Mag11/Zinc/Flaking Roll Operator/Charlie/Bor 1 tab ORAL DAILY 04/21/23 04/21/23 [Caltrate 600+D Plus Tablet] Cholecalciferol [Vitamin D3] 25 mcg PO DAILY 04/21/23 04/21/23 Lactobacillus Combination No.4 1 each PO DAILY 04/21/23 04/21/23 [Probiotic] Melatonin 5 mg PO HS 04/21/23 04/21/23 Multivitamin/Iron/Folic Acid 1 each PO DAILY 04/21/23 04/21/23 [Centrum Women Tablet] [place]-3/Dha/Epa/Fish Oil [Fish Oil 1,200 mg PO DAILY 04/21/23 04/21/23 1,200 mg Softgel] Omeprazole Magnesium 20 mg PO BID 04/21/23 04/21/23 Vit A/Vit C/Vit E/Zinc/Copper 1 each PO DAILY 04/21/23 04/21/23 [Preservision Areds Softgel] - Allergies Allergies/Adverse Reactions: Allergies Allergy/AdvReac Type Severity Reaction Status Date / Time acetaminophen [From Percocet] Allergy Unknown Verified 04/21/23 09:11 gabapentin Allergy Unknown Verified 04/21/23 09:11 hydrocodone [From Vicodin] Allergy Rash Verified 04/21/23 09:11 nitrofurantoin Allergy Hives Verified 04/21/23 09:11 [From Macrobid] oxycodone [From Percocet] Allergy Unknown Verified 04/21/23 09:11 Sulfa (Sulfonamide Allergy Hives Verified 04/21/23 09:11 Antibiotics) - Social History Does the pt smoke?: No Smoking Status: Never smoker Does the pt drink ETOH?: No Does the pt have substance abuse?: No - Immunizations Immunizations are current?: Yes - POLST Patient has POLST: Yes PD ED PE NORMAL - Vitals Vital signs reviewed: Yes (hypertensive ) - General General: Alert and oriented X 3, No acute distress, Well developed/nourished - HEENT HEENT: Atraumatic, PERRL, EOMI - Neck Neck: Supple, no meningeal sign, No bony TTP - Cardiac Cardiac: RRR, No murmur - Respiratory Respiratory: No respiratory distress, Clear bilaterally, Other (no chest wall tenderness) - Abdomen Abdomen: Soft, Non tender - Back Back: No CVA TTP, No spinal TTP - Derm Derm: Normal color, Warm and dry, No rash - Extremities Extremities: No deformity, Other (trace edema to the left ) - Neuro Neuro: Alert and oriented X 3, patient access representative 2-12 intact, No motor deficit, No sensory deficit, Other Eye Opening: Spontaneous Motor: Obeys Commands Verbal: Oriented GCS Score: 15 - Psych Psych: Normal mood, Normal affect Results - Vitals Vitals: Vital Signs - 24 hr 04/21/23 04/21/23 04/21/23 09:12 11:31 13:00 Temperature 37 C Heart Rate 80 78 76 Respiratory 20 20 17 Rate Blood Pressure 157/89 H 148/101 H 133/92 H O2 Saturation 98 99 98 04/21/23 04/21/23 04/21/23 14:00 14:30 15:00 Temperature Heart Rate 86 76 97 Respiratory 18 18 20 Rate Blood Pressure 154/86 H 139/105 H O2 Saturation 95 95 99 04/21/23 04/21/23 04/21/23 15:30 17:00 17:30 Temperature Heart Rate 80 82 73 Respiratory 18 16 14 Rate Blood Pressure 149/92 H 130/74 O2 Saturation 100 95 98 04/21/23 18:00 Temperature Heart Rate 75 Respiratory 19 Rate Blood Pressure 131/75 H O2 Saturation 96 Oxygen O2 Source [] Room air O2 Source Room air - EKG (time done) 0917 EKG releavant findings:: EKG personally interpreted by author of this note. Relevant findings are: Rate: Rate (enter#) (69) Rhythm: NSR QRS: LVH Compare to prior EKG: Changed from prior EKG (SPT 9-23-20 there are subtle changes with flattened T waves in limb leads) Computer interpretation: Agree with computer - Labs Labs: Laboratory Tests 04/21/23 04/21/23 04/21/23 09:33 09:33 09:33 WBC 6.0 RBC 4.42 Hgb 13.4 Hct 41.2 MCV 93.2 MCH 30.3 MCHC 32.5 RDW 15.2 H Plt Count 164 MPV 9.7 Neut # (Auto) 4.3 Lymph # (Auto) 1.2 L [place] # (Auto) 0.4 Eos # (Auto) 0.1 Baso # (Auto) 0.0 Absolute Nucleated RBC 0.00 Nucleated RBC % 0.0 Sodium 139 Potassium 3.1 L Chloride 104 Carbon Dioxide 27 Anion Gap 8.0 BUN 14 Creatinine 0.6 Estimated GFR (MDRD) 94 Glucose 106 H Calcium 9.1 Total Bilirubin 1.3 H AST 25 ALT 21 Alkaline Phosphatase 74 Troponin I High Sens 17.1 H* B-Natriuretic Peptide Total Protein 7.2 Albumin 3.9 Globulin 3.3 Albumin/Globulin Ratio 1.2 Lipase 25 04/21/23 04/21/23 09:33 11:22 WBC RBC Hgb Hct MCV MCH MCHC RDW Plt Count MPV Neut # (Auto) Lymph # (Auto) [place] # (Auto) Eos # (Auto) Baso # (Auto) Absolute Nucleated RBC Nucleated RBC % Sodium Potassium Chloride Carbon Dioxide Anion Gap BUN Creatinine Estimated GFR (MDRD) Glucose Calcium Total Bilirubin AST ALT Alkaline Phosphatase Troponin I High Sens 14.8 B-Natriuretic Peptide 333 H Total Protein Albumin Globulin Albumin/Globulin Ratio Lipase - Rads (name of study) chest Relevant Findings:: Prelim report reviewed (Impression: No acute radiographic abnormality. Low lung volumes limit evaluation. Suspected hiatal hernia again seen. Stable prominent right cardiomediastinal contours.), EMP independent interpretation of test Procedures - IVC sono (time) 0921 Bedside IVC sono: IVC measures (cm) (1.08), Dehydration (est 1liter deficit) PD Medical Decision Making - ED course Complexity details: reviewed old records, reviewed results, re-evaluated patient, considered differential, d/w patient, d/w family, d/w computer consultant (Dr. Alonzo (hospitalist here) consulted. We do not have ability to do stress test today or tomorrow here. She recommends transfer to cardiology for stress testing for stratification. ) Reviewed Lab Results: We reviewed a complete blood count showing a normal white blood cell count normal hemoglobin hematocrit and platelets with normal indices. Chemistries were similarly unremarkable with the exception of potassium being low at 3.1 kidney and liver function normal high-sensitivity troponin mildly elevated at 17.1 and this reduced into the normal range at 14.82 hours later. A BNP is minimally elevated at 333 there are no comparison numbers for this patient in our system. We reviewed an EKG showing mild abnormalities and without ST changes but with something changed from 2020. A chest X-ray is similarly unremarkable. My interpretation of these relatively benign laboratory and ancillary studies are that this pain the patient is experiencing in her chest, is likely related to her heart. This does not appear to be an overwhelming process. ED course: 87 y/o female with chest pressure this morning with elevated blood pressure has a mildly elevated troponin on initial sample, a non-ischemic EKG and resolution of symptoms with a single nitro. I consulted our hospitalist about stratification and she agreed she needs stratification but we are unable to perform stress echo secondary to staff shortage and she recommends we send the patient to a facility capable of providing the services the patient needs. I contacted Dr. Robbins cardiology at [facility] and she recommends transfer when bed is available. The transfer center has indicated a bed will become available and the patients care is turned over to Dr. Clayton at shift change. Departure - Departure Disposition: 02 Transfer Acute Care Hosp Clinical Impression: Unstable angina
[2023-04-21 09:44] LABS: BASOPHILS % (AUTO) 0.3 %; EOSINOPHILS # (AUTO) 0.1 10^3/uL (0.0-0.7); EOSINOPHILS % (AUTO) 1.2 %; HCT - HEMATOCRIT 41.2 % (37.0-47.0); HGB - HEMOGLOBIN 13.4 g/dL (12.0-16.0); LYMPHOCYTES # (AUTO) 1.2 10^3/uL (1.5-3.5); MEAN CORPUSCULAR HEMOGLOBIN 30.3 pg (27.0-31.0); MEAN CORPUSCULAR HGB CONC 32.5 g/dL (32.0-36.0); MEAN CORPUSCULAR VOLUME 93.2 fL (81.0-99.0); MEAN PLATELET VOLUME 9.7 fL (7.9-10.8); MONOCYTES # (AUTO) 0.4 10^3/uL (0.0-1.0); MONOCYTES % (AUTO) 7.3 %; NEUTROPHILS # (AUTO) 4.3 10^3/uL (1.5-6.6); NEUTROPHILS % (AUTO) 70.9 %; PLT - PLATELET COUNT 164 10^3/uL (130-450); RED BLOOD COUNT 4.42 10^6/uL (4.20-5.40); RED CELL DISTRIBUTION WIDTH 15.2 % (12.0-15.0)
[2023-04-21 10:00] LABS: ALBUMIN 3.9 g/dL (3.2-5.5); ALBUMIN/GLOBULIN RATIO 1.2 (1.0-2.2); BILIRUBIN,TOTAL 1.3 mg/dL (0.2-1.0); CALCIUM 9.1 mg/dL (8.5-10.3); CREATININE 0.6 mg/dL (0.4-1.0); POTASSIUM 3.1 mmol/L (3.5-5.0); TOTAL PROTEIN 7.2 g/dL (6.7-8.2)
--- NOTE | 2023-04-21 10:03 | XRAY Report ---
PROCEDURE: Chest 1 View X-Ray INDICATIONS: Chest Pain TECHNIQUE: One view of the chest was acquired. COMPARISON: 07/08/2020 FINDINGS: Surgical changes and devices: None. Lungs and pleura: Low lung volumes, limiting evaluation. No drainable effusion or dense airspace dis ease. Mediastinum: Hiatal hernia was seen on prior CT. Prominent right cardiomediastinal contour, unchange d from prior radiograph. Bones and chest wall: No suspicious bony lesions. Overlying soft tissues appear unremarkable. IMPRESSION: No acute radiographic abnormality. Low lung volumes limit evaluation. Suspected hiatal hernia again s een. Stable prominent right cardiomediastinal contours. Reviewed by: Brandon Lo MD on 04/21/2023 10:01 AM PDT Approved by: Brandon Lo MD on 04/21/2023 10:01 AM PDT Station ID: [id number]
[2023-04-21] MEDS ORDERED: NITROGLYCERIN SL 0.4 MG TABLET SL STA (10:47)
[2023-04-21] MEDS ORDERED: POTASSIUM BICARB 25 MEQ TABLET PO STA (12:11)
--- NOTE | 2023-04-21 13:16 | Ultrasound Report ---
PROCEDURE: Duplex Ext Veins Left INDICATIONS: LLE swelling TECHNIQUE: Real-time imaging, as well as color and pulse Doppler interrogation, were performed of the lower extr emity deep veins from the inguinal ligament to the popliteal fossa. COMPARISON: None. FINDINGS: The deep veins are normally compressible, and free of intraluminal thrombus. Color and pu lse Doppler demonstrate normal phasic intraluminal flow. There is normal augmentation response to di stal compression maneuver. IMPRESSION: Negative for DVT. Reviewed by: Brandon Lo MD on 04/21/2023 1:15 PM PDT Approved by: Brandon Lo MD on 04/21/2023 1:15 PM PDT Station ID: [id number]
--- NOTE | 2023-04-21 15:05 | CONSULTATION NOTE ---
Referring Provider Name of Referring Provider:: Dr Alonzo Consult Date: 04/21/23 Chief Complaint - Chief Complaint Chief Complaint: Angina History of Present Illness - History Obtained From Records Reviewed: Yes History obtained from: ED provider and the patient - History of Present Illness HPI Comment/Other: This is an 87-year-old female with a history of hypertension, hyperlipidemia, prior pulmonary embolism and gastroesophageal hernia. She was hospitalized here in 2019 for chest pain, underwent Lexiscan-Nuclear stress testing, and the nuclear imaging said she may possibly have small area of abnormal anterior ischemia present. Ultimately it was felt that her chest pain then was due to a large paraesophageal hernia. The patient presents now to the ER after developing chest pain anteriorly while she was just sitting in her chair. There was no radiation or other associated symptoms like diaphoresis or shortness of breath. Upon presentation to the ER, she still had chest pain rated 9/10, which decreased to 5/10 on its own. She also complained of left leg swelling. She underwent lab testing that showed troponins of 17.8 then 14 on repeat. She also underwent ultrasound of the left leg to rule out DVT and this was negative. Patient was given sublingual nitroglycerin which brought her pain down from 5 down to 0. Her chest pain lasted over an hour. There were no new med changes, she told me, no new travel, she was not over doing it. Her EKG was abnormal but was considered as having no ischemia and no STEMI criteria. The ED provider then spoke to me on the Hospitalist team, to bring this patient in under Observation, to have a stress test done. I personally called our Echo lab in the Diagnostic Imaging department and asked if there are openings on the stress schedule. There are no openings for the next 3 days because the DI nurse who is the restorative care technician, is completely booked for the next 3 days. My interpretation of her EKG, done in the ED, is that it is NOT normal or without ischemia. Her EKG shows: NSR, LVH, flat T waves in leads I, II, III, aVL and aVF, which are all new finding since her last EKG done in 2019. 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 Her brother in [place] just . The 3 of them plan to drive down to [place] in 1 week. - POLST Patient has POLST: Yes Meds/Allgy - Home Medications Home Medications: Ambulatory Orders Medication Instructions Recorded Confirmed atenoloL [Atenolol] 25 mg PO DAILY #30 tablet 09/22/19 04/21/23 Albuterol Sulfate [Proair Hfa 1 - 2 puffs IH Q4HR PRN 07/20/20 04/21/23 Inhaler] Levothyroxine Sodium [Synthroid] 112 mcg ORAL DAILY 07/20/20 04/21/23 Simvastatin 20 mg PO DAILY PM 07/20/20 04/21/23 amLODIPine [Norvasc] 5 mg PO DAILY 07/20/20 04/21/23 buPROPion [Wellbutrin Sr] 100 mg PO DAILY 07/20/20 04/21/23 Ascorbic Acid [Vitamin C] 500 mg ORAL DAILY 04/21/23 04/21/23 Biotin 5,000 mcg PO DAILY 04/21/23 04/21/23 Juan/D3/Mag11/Zinc/Spool Sorter/Charlie/Bor 1 tab ORAL DAILY 04/21/23 04/21/23 [Caltrate 600+D Plus Tablet] Cholecalciferol [Vitamin D3] 25 mcg PO DAILY 04/21/23 04/21/23 Lactobacillus Combination No.4 1 each PO DAILY 04/21/23 04/21/23 [Probiotic] Melatonin 5 mg PO HS 04/21/23 04/21/23 Multivitamin/Iron/Folic Acid 1 each PO DAILY 04/21/23 04/21/23 [Centrum Women Tablet] [place]-3/Dha/Epa/Fish Oil [Fish Oil 1,200 mg PO DAILY 04/21/23 04/21/23 1,200 mg Softgel] Omeprazole Magnesium 20 mg PO BID 04/21/23 04/21/23 Vit A/Vit C/Vit E/Zinc/Copper 1 each PO DAILY 04/21/23 04/21/23 [Preservision Areds Softgel] - Allergies Allergies/Adverse Reactions: Allergies Allergy/AdvReac Type Severity Reaction Status Date / Time acetaminophen [From Percocet] Allergy Unknown Verified 04/21/23 09:11 gabapentin Allergy Unknown Verified 04/21/23 09:11 hydrocodone [From Vicodin] Allergy Rash Verified 04/21/23 09:11 nitrofurantoin Allergy Hives Verified 04/21/23 09:11 [From Macrobid] oxycodone [From Percocet] Allergy Unknown Verified 04/21/23 09:11 Sulfa (Sulfonamide Allergy Hives Verified 04/21/23 09:11 Antibiotics) Review of Systems - All Other Systems All Other Systems: reports: Reviewed and negative Exam - Vital Signs Vital Signs: Vital Signs x48h Temp Pulse Resp BP Pulse Ox 04/21/23 13:00 76 17 133/92 H 98 04/21/23 11:31 78 20 148/101 H 99 04/21/23 09:12 37 C 80 20 157/89 H 98 - Physical Exam General Appearance: positive: No acute distress, Alert Eyes Bilateral: positive: Normal inspection, EOMI ENT: positive: ENT inspection nml, No signs of dehydration Neck: positive: Nml inspection, No JVD Respiratory: positive: No respiratory distress, Breath sounds nml Cardiovascular: positive: Regular rate & rhythm, Systolic murmur Abdomen: positive: Non-tender, Nml bowel sounds Skin: positive: Warm, Dry Extremities: positive: Non-tender, Other (redness of both shins and 2+ edema to mid shins.) Conclusion/Plan - Problem List (1) Angina pectoris Conclusion/Plan: The patient developed chest pain at rest, which is an unstable symptom. Her chest pain decreased slowly with time, then was eventually resolved by using sublingual nitroglycerin, therefore it is nitrate-responsive. Her troponins of 17.8 then 14 have ruled her out for an NSTEMI. Patient has an abnormal EKG with new flat T waves inferolaterally, not present in 2020. She is already on Norvasc and Atenolol. It is unclear if she has ever had an angiogram. Recommendation: Since she is at high risk for having CAD, with this presentation of chest pain at rest and these EKG changes, and since we cannot perform stress testing here, the patient should be transferred to a facility where stress testing is available. She should get aspirin today (if not had yet), and please be sure she is on (at least) 1 baby aspirin daily Her antianginal medications should be increased now, by starting her on Nitropaste. Continue all her other meds for HTN and lipids. I do not recommend that the patient be discharged home from the ER, even with added anti-anginal medications and advice to do nothing strenuous, since her chest pain began at rest. This was all discussed in person with her ED provider, Dr Alonzo. - Lab Results Fish Bones: 04/21/23 09:33 04/21/23 09:33 - Diagnostic Imaging Results Diagnostic Imaging Results: positive: Final report reviewed
[2023-04-22 07:33] LABS: CREATININE 0.7 mg/dL (0.4-1.0); MAGNESIUM 1.9 mg/dL (1.7-2.8); POTASSIUM 3.4 mmol/L (3.5-5.0)
[2023-04-22] MEDS ORDERED: atenoloL 25 MG TABLET PO SCH (09:00)
[2023-04-22] MEDS ORDERED: LEVOTHYROXINE 112 MCG TABLET PO SCH (09:00)
[2023-04-22] MEDS ORDERED: amLODIPine 5 MG TABLET PO STA (09:06)
[2023-04-22] MEDS ORDERED: ASPIRIN EC 81 MG TABLET PO SCH (09:20)
[2023-04-22] MEDS ORDERED: ENOXAPARIN 40 MG/0.4 ML SYRINGE SUBQ STA (11:29)
[2023-04-22 11:51] LABS: CHOL/HDL RATIO 2.2 (<4.4); CHOLESTEROL 122 mg/dL; HDL CHOLESTEROL 56 mg/dL; LDL CHOLESTEROL,CALCULATED 53 mg/dL; LDL/HDL RATIO 0.9 (<4.4); TRIGLYCERIDES 64 mg/dL; VLDL CHOLESTEROL 13 mg/dL
[2023-04-22] MEDS ORDERED: ISOSORBIDE MONONITRATE ER 30 MG TABLET PO SCH (12:00)
[2023-04-22] MEDS ORDERED: DIPHENOX/ATROPINE 2.5/0.025 MG TABLET PO STA (18:54)
--- NOTE | 2023-04-22 18:59 | ED Physician Documentation ---
ED Addendum - Addendum Addendum: 04/22/23 19:05 The patient has remained chest pain-free through the day. We had hoped earlier that [facility] was going to have beds available and they thought they were. However they came to this afternoon and called and said they would they would not be able to accept her today. The patient has remained chest pain-free. We were able to get an echocardiogram which showed a 60% ejection fraction and no wall abnormality. Basic size was normal. I talked with Dr. Batista who is on-call for Marleni Mann who is the patient's primary care provider in [place]. I asked if they would be able to expedite and get a follow-up stress test outpatient instead given the patient's relatively good echo and no chest pain here. He said they would be able to do that and they would call her in the morning. I talked with the patient and her son and they were both "quite preferring for discharge and following up that way. The patient is discharged in stable condition. Diagnosis: 1. Chest pain episode 2. Normal EKG and troponin 3. Diarrhea, acute Disposition the patient is discharged home in stable condition.
[2023-04-22 19:48] VITALS: BP 137/86
== END 2023-04-22 19:45 | disposition home or self-care (01) ==
LOC: ED 09:03
DX: I20.0 Unstable angina (principal); R19.7 Diarrhea, unspecified; I10 Essential (primary) hypertension; E78.00 Pure hypercholesterolemia, unspecified; E03.9 Hypothyroidism, unspecified; Z79.899 Other long term (current) drug therapy; Z86.711 Personal history of pulmonary embolism
CPT/HCPCS: 36415; 71045; 80048; 80053; 80061; 83690; 83735; 83880; 84484; 85025; 93005; 93306; 93971; 96372; 99284; A9270; J1650; 83721

== ENCOUNTER 2023-06-19 14:31 | Outpatient (CLI) | payer MEDICARE, OTHER | END 2023-06-19 14:32 | disposition critical access hospital (66) | LOC: EMS 14:31 | DX: S00.83XA Contusion of other part of head, initial encounter (principal); W01.198A Fall on same level from slipping, tripping and stumbling with subsequent striking against other object, initial encounter; Y93.01 Activity, walking, marching and hiking; Y92.008 Other place in unspecified non-institutional (private) residence as the place of occurrence of the external cause; M25.551 Pain in right hip; M25.511 Pain in right shoulder | CPT/HCPCS: A0425; A0429 ==

== ENCOUNTER 2023-06-19 14:50 | Inpatient (IN) | payer MEDICARE, OTHER ==
--- NOTE | 2023-06-19 15:04 | ED Physician Documentation ---
History of Present Illness - Stated complaint Stated Complaint: GLF - Chief complaint Chief Complaint: Trauma Ext - History obtained from History obtained from: Patient, EMS - Additonal information Additional information: The patient is brought to the emergency department by EMS for chief complaint of ground-level fall after tripping over something in her closet while turning around and falling on her right side. The patient states she did not lose consciousness. She struck her face she thinks on her walker and then landed on her right hip and shoulder. She has pain in both areas which extends into her right humerus. She was not able to give herself up off the floor and had to be gone in by EMS. No spinal pain. No neurologic deficit. No abdominal pain or rib pain. No difficulty breathing. No other complaints at this time. Patient states she is not anticoagulated. 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 : None, Chronic bladder infection, Other HEENT: None Psych: None Musculoskeletal: Osteoarthritis Derm: None - Past Surgical History Past Surgical History: No General: Cholecystectomy, Appendectomy Ortho: Knee replacement Cardiovascular: Other HEENT: Cataracts - Present Medications Home Medications: Ambulatory Orders Medication Instructions Recorded Confirmed atenoloL [Atenolol] 25 mg PO DAILY #30 tablet 09/22/19 04/21/23 Albuterol Sulfate [Proair Hfa 1 - 2 puffs IH Q4HR PRN 07/20/20 04/21/23 Inhaler] Levothyroxine Sodium [Synthroid] 112 mcg ORAL DAILY 07/20/20 04/21/23 Simvastatin 20 mg PO DAILY PM 07/20/20 04/21/23 amLODIPine [Norvasc] 5 mg PO DAILY 07/20/20 04/21/23 buPROPion [Wellbutrin Sr] 100 mg PO DAILY 07/20/20 04/21/23 Ascorbic Acid [Vitamin C] 500 mg ORAL DAILY 04/21/23 04/21/23 Biotin 5,000 mcg PO DAILY 04/21/23 04/21/23 Juan/D3/Mag11/Zinc/Customer Retention Specialist/Charlie/Bor 1 tab ORAL DAILY 04/21/23 04/21/23 [Caltrate 600+D Plus Tablet] Cholecalciferol [Vitamin D3] 25 mcg PO DAILY 04/21/23 04/21/23 Lactobacillus Combination No.4 1 each PO DAILY 04/21/23 04/21/23 [Probiotic] Melatonin 5 mg PO HS 04/21/23 04/21/23 Multivitamin/Iron/Folic Acid 1 each PO DAILY 04/21/23 04/21/23 [Centrum Women Tablet] [place]-3/Dha/Epa/Fish Oil [Fish Oil 1,200 mg PO DAILY 04/21/23 04/21/23 1,200 mg Softgel] Omeprazole Magnesium 20 mg PO BID 04/21/23 04/21/23 Vit A/Vit C/Vit E/Zinc/Copper 1 each PO DAILY 04/21/23 04/21/23 [Preservision Areds Softgel] Nitroglycerin [Nitrostat] 0.4 mg SL Q5MIN PRN #25 tablet 04/22/23 - Allergies Allergies/Adverse Reactions: Allergies Allergy/AdvReac Type Severity Reaction Status Date / Time acetaminophen [From Percocet] Allergy Unknown Verified 06/19/23 15:01 gabapentin Allergy Unknown Verified 06/19/23 15:01 hydrocodone [From Vicodin] Allergy Rash Verified 06/19/23 15:01 nitrofurantoin Allergy Hives Verified 06/19/23 15:01 [From Macrobid] oxycodone [From Percocet] Allergy Unknown Verified 06/19/23 15:01 Sulfa (Sulfonamide Allergy Hives Verified 06/19/23 15:01 Antibiotics) - Social History Does the pt smoke?: No Smoking Status: Never smoker Does the pt drink ETOH?: No Does the pt have substance abuse?: No - Immunizations Immunizations are current?: Yes - POLST Patient has POLST: Yes PD ED PE NORMAL - Vitals Vital signs reviewed: Yes - General General: Alert and oriented X 3, No acute distress, Well developed/nourished - HEENT HEENT: PERRL, EOMI, Moist mucous membranes, Other (Large contusion infraorbitally on the right. No bony deformity. No crepitus.) - Neck Neck: Supple, no meningeal sign, No bony TTP - Cardiac Cardiac: RRR, No murmur, Strong equal pulses - Respiratory Respiratory: No respiratory distress, Clear bilaterally - Abdomen Abdomen: Soft, Non tender, Non distended - Back Back: No spinal TTP - Derm Derm: Normal color, Warm and dry, No rash - Extremities Extremities: No deformity, No edema, Other (No shortening or rotation of the patient's right lower extremity. She has Pain in her right hip with range of motion, though tenderness cannot be specificly elicited with palpation.) - Neuro Neuro: Alert and oriented X 3 - Psych Psych: Normal mood, Normal affect Results - Vitals Vitals: Vital Signs - 24 hr 06/19/23 06/19/23 14:56 17:01 Temperature 36.9 C Heart Rate 55 L 84 Respiratory 20 18 Rate Blood Pressure 107/89 H 131/81 H O2 Saturation 100 97 Oxygen O2 Source [] Room air O2 Source Room air - Rads (name of study) Right shoulder x-ray Relevant Findings:: Final report received, See rad report (No acute findings) Right humerus x-ray series Relevant Findings:: Final report received, See rad report (No acute findings) CT head Relevant Findings:: Final report received, See rad report (No acute findings) CT face Relevant Findings:: Final report received, See rad report (No acute findings other than soft tissue swelling) PD Medical Decision Making - ED course Complexity details: reviewed results, re-evaluated patient, considered differential, d/w patient ED course: The patient was worked up with x-rays of her right shoulder, right humerus, and CTs of her head, face, and right hip. The imaging studies were negative except for a mildly displaced obturator ring fracture on the right hip CT. There is also an adjacent hematoma which was small but did abut the bladder and radiologist raise concern for potential involvement of the bladder. As such, a urinalysis was ordered. This is pending at this time and patient signed out to Dr. Alejandro at change of shift, pending urine results. The pelvic fractures otherwise stable and if urine is unremarkable, then the plan will be for the patient to heal at home with her stable pelvic fracture. Departure - Departure Clinical Impression: Shoulder contusion Qualifiers: Encounter type: initial encounter Laterality: right Qualified Code(s): S40.011A - Contusion of right shoulder, initial encounter Periorbital contusion of right eye Qualifiers: Encounter type: initial encounter Qualified Code(s): S05.11XA - Contusion of eyeball and orbital tissues, right eye, initial encounter Pelvic fracture Qualifiers: Encounter type: initial encounter Pelvic bone location: unspecified part of pelvis Condition: Stable Instructions: ED Contusion Face, ED Fx Pelvis, ED Contusion Shoulder Comments: The CT scan of your hip shows a stable pelvic fracture with some trauma to the surrounding soft tissues. Otherwise, the rest of your imaging studies look good and there is no evidence of any other broken bones. The pelvic fracture is going to take some weeks to heal and will gradually get better after the first week or two. You have most likely sustained bruises and strains, and these will take some time to heal but ultimately, will get better on their own. Please follow-up with your primary care physician for further concerns. You may use ice, ibuprofen, and Tylenol to help with any discomforts. Forms: PCP List
--- NOTE | 2023-06-19 16:21 | XRAY Report ---
PROCEDURE: Shoulder 3 View RT INDICATIONS: fall/pain TECHNIQUE: 3 views of the shoulder were acquired. COMPARISON: None. FINDINGS: Bones: No fractures or dislocations. No suspicious bony lesions. Visualized ribs appear intact. Gl enohumeral osteoarthritis with superior subluxation of the humeral head. Generalized decreased osseou s mineralization. Subchondral sclerosis involves the AC joint. Soft tissues: No suspicious soft tissue calcifications. IMPRESSION: Degenerative changes without fracture or foreign body Reviewed by: Jose Richmond MD on 06/19/2023 3:20 PM AKDT Approved by: Jose Richmond MD on 06/19/2023 3:20 PM AKDT Station ID: [id number]
--- NOTE | 2023-06-19 16:21 | XRAY Report ---
PROCEDURE: Humerus RT INDICATIONS: fall/pain TECHNIQUE: 2 views of the humerus were acquired. COMPARISON: None. FINDINGS: Bones: No fractures or dislocations. No suspicious bony lesions. Advanced glenohumeral degenerative changes Soft tissues: No suspicious soft tissue calcifications or masses. IMPRESSION: Arthritic changes without fracture or foreign body Reviewed by: Jose Richmond MD on 06/19/2023 3:19 PM AKDT Approved by: Jose Richmond MD on 06/19/2023 3:19 PM AKDT Station ID: [id number]
--- NOTE | 2023-06-19 17:43 | CT Report ---
PROCEDURE: HEAD WO INDICATIONS: fall/head injury TECHNIQUE: Noncontrast 4.5 mm thick angled axial sections acquired from the foramen magnum to the vertex. For r adiation dose reduction, the following was used: automated exposure control, adjustment of mA and/or kV according to patient size. COMPARISON: None. FINDINGS: Image quality: Excellent. CSF spaces: Basal cisterns are patent. No extra-axial fluid collections. Ventricles are normal in size and shape. Brain: No midline shift. No intracranial masses or hemorrhage. No area of hypodensity in a vascula r distribution to suggest acute infarction. There is periventricular hypodensity consistent with baked and graphite inspector mann microvascular ischemic disease. Age-related parenchymal loss. Skull and face: Calvarium and visualized facial bones are intact, without suspicious lesions. Right preseptal and infraorbital swelling/hematoma. Sinuses: Visualized sinuses and mastoids are clear. IMPRESSION: No acute intracranial abnormality. Right orbit preseptal and infraorbital swelling/hematoma. Reviewed by: Gabino Queen MD on 06/19/2023 5:41 PM PDT Approved by: Gabino Queen MD on 06/19/2023 5:41 PM PDT Station ID: [id number]
--- NOTE | 2023-06-19 17:48 | CT Report ---
PROCEDURE: MAXILLOFACIAL WO INDICATIONS: fall/facial injury TECHNIQUE: Noncontrast 1.5 mm thick axial images acquired from the mandible through the frontal sinuses, with co pati and sagittal reformatting. For radiation dose reduction, the following was used: automated ex posure control, adjustment of mA and/or kV according to patient size. COMPARISON: Same day noncontrast head CT. FINDINGS: Image quality: Excellent. Bones and teeth: Right preseptal swelling/hematoma. Right infraorbital swelling/hematoma. Orbital wa lls are intact. No retrobulbar or hematoma. The globe is intact. Sinus yoder show no fracture or defo rmity. Nasal bones and septum are intact. Visualized portions of the mandible demonstrate no fractu res or subluxation. Zygomatic arches are intact. Pterygoid plates are intact. Visualized portions of the skull base and auditory canals are intact. Sinuses: Paranasal sinuses are aerated, without fluid levels, mucosal thickening, or mucoceles. Trac e mucosal thickening in the right sphenoid sinus, (). Mastoid air cells are aerated. Soft tissues: No edema, masses, or fluid collections. No enlarged lymph nodes. No soft tissue lace rations or debris. Vascular: Visualized vascular structures appear normal in the absence of contrast. Bony vascular fo ramina and canals are intact. IMPRESSION: No orbital wall fracture. No retrobulbar hematoma. Right preseptal and infraorbital hematoma/swelling. Reviewed by: Gabino Queen MD on 06/19/2023 5:46 PM PDT Approved by: Gabino Queen MD on 06/19/2023 5:46 PM PDT Station ID: [id number]
--- NOTE | 2023-06-19 18:11 | CT Report ---
PROCEDURE: LOWER EXTREMITY WO - RT INDICATIONS: Right hip pain after fall. TECHNIQUE: Noncontrast 3-mm axial sections acquired from the distal tibial shaft to the talar dome, with coronal and sagittal reformats. For radiation dose reduction, the following was used: automated exposure c ontrol, adjustment of mA and/or kV according to patient size. COMPARISON: 07/10/2020 FINDINGS: Image quality: Good Bones: The femoral acetabular joint is congruent. No femoral fracture. Mild degenerative changes of t he hip. Segmental comminuted fractures of the superior and inferior obturator rings. No pubic diastases is se en. There is a questionable nondisplaced deformity of the right sacral ala. Soft tissues: Partially seen colonic diverticula. There is soft tissue swelling and hemorrhage in the pelvis/subperitoneal space adjacent to the fractures. There is also suspected hemorrhage within the muscles, likely small volume. Intrapelvic structures are only partially seen. IMPRESSION: Comminuted segmental inferior and superior obturator ring fractures. Questionable nondisplaced additi onal fracture at the right sacral ala. Surrounding soft tissue hemorrhage and edema, including the subperitoneal/pelvic space adjacent to th e bladder. If there is 3+ hematuria, consider additional evaluation with cystogram. Pelvis is only partially seen on this study. No femur fracture. Reviewed by: Brandon Lo MD on 06/19/2023 6:09 PM PDT Approved by: Brandon Lo MD on 06/19/2023 6:09 PM PDT Station ID: [id number]
[2023-06-19] MEDS ORDERED: HYDROmorphone 0.5 MG/0.5 ML SYRINGE IVP STA (18:54)
[2023-06-19] MEDS ORDERED: SODIUM CHLORIDE 0.9% 1,000 ML IV STA (18:54)
[2023-06-19 19:47] LABS: BASOPHILS % (AUTO) 0.2 %; EOSINOPHILS % (AUTO) 0.1 %; HCT - HEMATOCRIT 38.6 % (37.0-47.0); HGB - HEMOGLOBIN 12.5 g/dL (12.0-16.0); LYMPHOCYTES # (AUTO) 0.8 10^3/uL (1.5-3.5); LYMPHOCYTES % (AUTO) 7.7 %; MEAN CORPUSCULAR HEMOGLOBIN 31.3 pg (27.0-31.0); MEAN CORPUSCULAR HGB CONC 32.4 g/dL (32.0-36.0); MEAN CORPUSCULAR VOLUME 96.5 fL (81.0-99.0); MEAN PLATELET VOLUME 9.7 fL (7.9-10.8); MONOCYTES # (AUTO) 0.6 10^3/uL (0.0-1.0); MONOCYTES % (AUTO) 5.6 %; NEUTROPHILS % (AUTO) 85.8 %; PLT - PLATELET COUNT 169 10^3/uL (130-450); WHITE BLOOD COUNT 10.5 x10^3/uL (4.8-10.8)
[2023-06-19 19:47] LABS: BILIRUBIN,URINE NEGATIVE (NEGATIVE); GLUCOSE, URINE (UA) NEGATIVE (NEGATIVE); KETONES,URINE (UA) 40 mg/dL (NEGATIVE); LEUKOCYTE ESTERASE, URINE NEGATIVE (NEGATIVE); NITRITE,URINE NEGATIVE (NEGATIVE); OCCULT BLOOD,URINE NEGATIVE (NEGATIVE); PROTEIN,URINE NEGATIVE (NEGATIVE); UROBILINOGEN,URINE 0.2 (NORMAL) E.U./dL (NORMAL)
[2023-06-19 19:50] LABS: CLARITY,URINE BLOODY (CLEAR)
[2023-06-19 20:03] LABS: INR 1.3 (0.8-1.2); PT - PROTHROMBIN TIME 13.6 secs (9.9-12.6)
[2023-06-19 20:06] LABS: ALBUMIN/GLOBULIN RATIO 1.6 (1.0-2.2); BILIRUBIN,TOTAL 1.3 mg/dL (0.2-1.0); CALCIUM 9.2 mg/dL (8.5-10.3); CREATININE 0.6 mg/dL (0.6-1.3); POTASSIUM 3.7 mmol/L (3.5-4.5); TOTAL PROTEIN 6.5 g/dL (6.4-8.9)
[2023-06-19] MEDS ORDERED: HYDROmorphone 1 MG/ML CARPUJECT IVP STA ×2 (21:09→21:37)
--- NOTE | 2023-06-19 21:42 | ED Physician Documentation ---
ED Addendum - Addendum Addendum: 06/19/23 21:[address] Payne at 6 PM shift change. Briefly this is an elderly woman who had a ground-level mechanical fall with multiple injuries but the only major 1 was superior and inferior obturator ring fractures with possible right sacral ala fracture. At signout instructions were to follow-up on urinalysis given the pelvic fracture to make sure there was no significant hematuria and follow-up on lab work and reevaluate the patient. CBC grossly normal. INR slight elevation at 1.3. CMP grossly normal. Urinalysis with ketones but no blood. Patient seen and examined at the bedside. Her supportive nephew is there as well. At this point she has required several doses (x3) of IV pain medication and so the decision to admit was made. I did discuss the case by phone with Dr. Rodriguez, our on-call orthopedist who confirms that the fracture pattern is nonoperative and we will see her in the morning in consultation. Call to the hospitalist for admission at this time. Dr. Rodriguez does rec Past a plain x-ray of the pelvis. Disposition: Place in observation Condition: Stable Diagnoses: 1. Pelvic fractures 2. Facial contusion 3. Right arm contusion
[2023-06-19] MEDS ORDERED: HYDROcod/ACETAM 5/325 MG TABLET PO PRN (22:49)
[2023-06-19] MEDS ORDERED: ONDANSETRON 4 MG/2 ML VIAL IVP PRN (22:49)
--- NOTE | 2023-06-19 22:52 | XRAY Report ---
PROCEDURE: Pelvis 1 View INDICATIONS: PELVIC FX1 TECHNIQUE: 1 view(s) of the pelvis acquired. COMPARISON: None. FINDINGS: Bones: No hip fractures or dislocations but there is a medial right symphysis pubis fracture and als o vertically oriented minimally displaced fracture through the inferior right obturator ring.. No sandhu spicious bony lesions. Soft tissues: Visualized bowel gas pattern is normal. No suspicious soft tissue calcifications. IMPRESSION: The right hip is evaluated by only one view. The right obturator ring is fractured both at the medial right symphysis pubis and at the inferior obturator ring. Reviewed by: Julio Mccarthy MD on 06/19/2023 10:50 PM PDT Approved by: Julio Mccarthy MD on 06/19/2023 10:50 PM PDT Station ID: [id number]
--- NOTE | 2023-06-19 23:05 | HISTORY & PHYSICAL EXAMINATION ---
Chief Complaint - Chief Complaint Chief Complaint: Hip pain, fall History of Present Illness - History of Present Illness HPI Comment/Other: 87 y old female with PMH HTN, HLP, hypothyroidism brought in by EMS after ground level fall.As per pt, she tripped and fell.Denies LOC. C/O pain in pelvis. 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 Her brother in [place] just . The 3 of them plan to drive down to [place] in 1 week. - POLST Patient has POLST: Yes Meds/Allgy - Home Medications Home Medications: Ambulatory Orders Medication Instructions Recorded Confirmed atenoloL [Atenolol] 25 mg PO DAILY #30 tablet 09/22/19 04/21/23 Albuterol Sulfate [Proair Hfa 1 - 2 puffs IH Q4HR PRN 07/20/20 04/21/23 Inhaler] Levothyroxine Sodium [Synthroid] 112 mcg ORAL DAILY 07/20/20 04/21/23 Simvastatin 20 mg PO DAILY PM 07/20/20 04/21/23 amLODIPine [Norvasc] 5 mg PO DAILY 07/20/20 04/21/23 buPROPion [Wellbutrin Sr] 100 mg PO DAILY 07/20/20 04/21/23 Ascorbic Acid [Vitamin C] 500 mg ORAL DAILY 04/21/23 04/21/23 Biotin 5,000 mcg PO DAILY 04/21/23 04/21/23 Juan/D3/Mag11/Zinc/Trim Mechanic/Charlie/Bor 1 tab ORAL DAILY 04/21/23 04/21/23 [Caltrate 600+D Plus Tablet] Cholecalciferol [Vitamin D3] 25 mcg PO DAILY 04/21/23 04/21/23 Lactobacillus Combination No.4 1 each PO DAILY 04/21/23 04/21/23 [Probiotic] Melatonin 5 mg PO HS 04/21/23 04/21/23 Multivitamin/Iron/Folic Acid 1 each PO DAILY 04/21/23 04/21/23 [Centrum Women Tablet] [place]-3/Dha/Epa/Fish Oil [Fish Oil 1,200 mg PO DAILY 04/21/23 04/21/23 1,200 mg Softgel] Omeprazole Magnesium 20 mg PO BID 04/21/23 04/21/23 Vit A/Vit C/Vit E/Zinc/Copper 1 each PO DAILY 04/21/23 04/21/23 [Preservision Areds Softgel] Nitroglycerin [Nitrostat] 0.4 mg SL Q5MIN PRN #25 tablet 04/22/23 - Allergies Allergies/Adverse Reactions: Allergies Allergy/AdvReac Type Severity Reaction Status Date / Time acetaminophen [From Percocet] Allergy Unknown Verified 06/19/23 15:01 gabapentin Allergy Unknown Verified 06/19/23 15:01 hydrocodone [From Vicodin] Allergy Rash Verified 06/19/23 15:01 nitrofurantoin Allergy Hives Verified 06/19/23 15:01 [From Macrobid] oxycodone [From Percocet] Allergy Unknown Verified 06/19/23 15:01 Sulfa (Sulfonamide Allergy Hives Verified 06/19/23 15:01 Antibiotics) Review of Systems - Other Findings Other Findings: 10 points systems wefre reviewed and were negative except mentioned in HPI Exam - Vital Signs Vital Signs: Vital Signs x48h Pulse Resp BP Pulse Ox 06/19/23 21:00 79 18 129/91 H 99 06/19/23 17:01 84 18 131/81 H 97 - Physical Exam General Appearance: positive: No acute distress Eyes Bilateral: positive: PERRL, Other (right olman-orbital eccymosis) ENT: positive: ENT inspection nml Neck: positive: Nml inspection Respiratory: positive: Breath sounds nml Cardiovascular: positive: Regular rate & rhythm Abdomen: positive: Non-tender, Nml bowel sounds Skin: positive: No rash Neurologic/Psychiatric: positive: Oriented x3, Motor nml Conclusion/Plan - Lab Results Fish Bones: 06/19/23 19:39 06/19/23 19:39 - Other Other Results/Comments: A; Pelvic fractures Fall Right olman-orbital hematoma HTN HLP Hypothyroidism Plan; Admit in med surg with tele Pain control PT/OT Per ER physician, ortho consulted and recommended conservative management Cont atenolol Cont statins Cont levothyroxine Supportive care DVT prophylaxic: SCD Full code Pt is admitted as inpatient as more than 2 midnight stay is expected
[2023-06-19] MEDS: MORPHINE 2 MG/ML CARPUJECT IVP PRN (23:49)
[2023-06-19] MEDS: SODIUM CHLORIDE FLUSH 0.9% 10 ML SYRINGE IVP SCH (23:49)
[2023-06-20] MEDS: MORPHINE 2 MG/ML CARPUJECT IVP PRN ×2 (05:15→11:43)
[2023-06-20] MEDS: LEVOTHYROXINE 112 MCG TABLET PO SCH (06:01)
[2023-06-20] MEDS: SODIUM CHLORIDE FLUSH 0.9% 10 ML SYRINGE IVP SCH ×3 (08:30→23:37)
[2023-06-20] MEDS: atenoloL 25 MG TABLET PO SCH (08:30)
[2023-06-20] MEDS: ATORVASTATIN 10 MG TABLET PO SCH (08:30)
--- NOTE | 2023-06-20 11:08 | PROVIDER PROGRESS NOTE ---
Assessment/Plan - Problem List (1) Inferior pubic ramus fracture Qualifiers: Encounter type: initial encounter Fracture type: closed Laterality: right Qualified Code(s): S32.591A - Other specified fracture of right pubis, initial encounter for closed fracture Assessment/Plan: * Patient is status post ground-level fall at home sustaining fracture as above * Patient is hemodynamically stable * Alert and oriented with no associated LOC or antecedent symptoms * Patient admitted for nonoperative management including pain control, PT/OT, and likely long term facility placement * Continue pain meds including Tylenol, ibuprofen, Toradol, and minimize narcotics for breakthrough pain use (2) GERD (gastroesophageal reflux disease) Assessment/Plan: Pepcid PO (3) Hyperlipidemia Qualifiers: Hyperlipidemia type: unspecified Qualified Code(s): E78.5 - Hyperlipidemia, unspecified Assessment/Plan: Stable Cont home meds (4) Hypertension Assessment/Plan: BP soft to normal Currently on home atenolol 25 mg p.o. Continue to monitor BP and if BP lowers much will need to consider discontinuing atenolol during hospital admission (5) Hypothyroidism Assessment/Plan: Stable Continue home levothyroxine - Current Meds Current Meds: Current Medications Generic Name Dose Route Start Last Admin Trade Name Freq PRN Reason Stop Dose Admin Atenolol 25 mg 06/20/23 09:00 06/20/23 08:30 Atenolol 25 Mg Tablet PO 25 mg DAILY DERIK Administration Atorvastatin Calcium 10 mg 06/20/23 09:00 06/20/23 08:30 Atorvastatin 10 Mg Tablet PO 10 mg DAILY DERIK Administration Levothyroxine Sodium 112 mcg 06/20/23 07:00 06/20/23 06:01 Levothyroxine 112 Mcg Tablet PO 112 mcg QDAC DERIK Administration Morphine Sulfate 2 mg 06/19/23 22:49 06/20/23 05:15 Morphine 2 Mg/Ml Carpuject IVP 2 mg Q4H PRN Administration Pain 8 to 10 Sodium Chloride 10 ml 06/20/23 01:00 06/20/23 08:30 Sodium Chloride Flush 0.9% 10 Ml Syringe IVP 10 ml 0100,0900,1700 DERIK Administration - Lab Result Lab results reviewed: Yes Fish Bone Diagrams: 06/19/23 19:39 06/19/23 19:39 - EKG Results EKG Interpreted Independently: Yes - Diagnostic Imaging Results Diagnostic Imaging Results: Final report reviewed, Read independently - Additional Planning Condition/Complexity: Stable My Orders: My Active Orders 06/20/23 Evaluate and Treat OT [OT] Routine 06/20/23 08:23 Ibuprofen [Motrin] 400 mg PO Q6HR PRN Consult/Specialty: Other (Ortho) Plan Discussed with:: Patient Time Spent: 31-60 minutes Subjective - Subjective Patient Reports: Pain Objective Vital Signs: Vital Signs - 24 hr 06/19/23 06/19/23 06/19/23 14:56 17:01 21:00 Temperature 36.9 C Heart Rate 55 L 84 79 Heart Rate [ Brachial] Respiratory 20 18 18 Rate Blood Pressure 107/89 H 131/81 H 129/91 H Blood Pressure [Left Brachial artery] Blood Pressure [Right Brachial artery] O2 Saturation 100 97 99 06/19/23 06/19/23 06/20/23 23:00 23:39 05:44 Temperature 36.3 C L 36.4 C L Heart Rate 82 Heart Rate [ 98 84 Brachial] Respiratory 16 16 20 Rate Blood Pressure 121/84 H Blood Pressure 103/74 [Left Brachial artery] Blood Pressure 114/65 [Right Brachial artery] O2 Saturation 95 96 96 06/20/23 08:00 Temperature 36.6 C Heart Rate Heart Rate [ 92 Brachial] Respiratory 16 Rate Blood Pressure Blood Pressure 93/64 [Left Brachial artery] Blood Pressure [Right Brachial artery] O2 Saturation 96 Oxygen O2 Source [With Activity] Room air O2 Source Room air I&O (Last 24 Hrs): Intake and Output Totals x24h 06/18/23 06/19/23 06/20/23 23:59 23:59 23:59 Intake Total 1000 Output Total 650 Balance 1000 -650 General: Alert, Oriented x3, Cooperative HEENT: Other (Right Inferior Dustin orbital contusion with Ecchymosis) Neck: Supple Neuro: Alert, CN 2-12 Grossly Intact, Oriented Times 3 Cardiovascular: Regular rate, Normal S1, Normal S2 Respiratory: Chest non-tender, No respiratory distress, Breath sounds nml Abdomen: Normal bowel sounds Comments/Notes: Bruising - Results Results: Laboratory Results WBC 10.5 x10^3/uL (4.8-10.8) 06/19/23 19:39 RBC 4.00 10^6/uL (4.20-5.40) L 06/19/23 19:39 Hgb 12.5 g/dL (12.0-16.0) 06/19/23 19:39 Hct 38.6 % (37.0-47.0) 06/19/23 19:39 MCV 96.5 fL (81.0-99.0) 06/19/23 19:39 MCH 31.3 pg (27.0-31.0) H 06/19/23 19:39 MCHC 32.4 g/dL (32.0-36.0) 06/19/23 19:39 RDW 16.0 % (12.0-15.0) H 06/19/23 19:39 Plt Count 169 10^3/uL (130-450) 06/19/23 19:39 MPV 9.7 fL (7.9-10.8) 06/19/23 19:39 Neut # (Auto) 9.0 10^3/uL (1.5-6.6) H 06/19/23 19:39 Lymph # (Auto) 0.8 10^3/uL (1.5-3.5) L 06/19/23 19:39 [place] # (Auto) 0.6 10^3/uL (0.0-1.0) 06/19/23 19:39 Eos # (Auto) 0.0 10^3/uL (0.0-0.7) 06/19/23 19:39 Baso # (Auto) 0.0 10^3/uL (0.0-0.1) 06/19/23 19:39 Absolute Nucleated RBC 0.00 x10^3/uL 06/19/23 19:39 Nucleated RBC % 0.0 /100WBC 06/19/23 19:39 PT 13.6 secs (9.9-12.6) H 06/19/23 19:39 INR 1.3 (0.8-1.2) H 06/19/23 19:39 Sodium 139 mmol/L (135-145) 06/19/23 19:39 Potassium 3.7 mmol/L (3.5-4.5) 06/19/23 19:39 Chloride 105 mmol/L (101-111) 06/19/23 19:39 Carbon Dioxide 26 mmol/L (21-32) 06/19/23 19:39 Anion Gap 8.0 (6-13) 06/19/23 19:39 BUN 16 mg/dL (6-20) 06/19/23 19:39 Creatinine 0.6 mg/dL (0.6-1.3) 06/19/23 19:39 Estimated GFR (MDRD) 94 (>89) 06/19/23 19:39 Glucose 112 mg/dL (74-104) H 06/19/23 19:39 Calcium 9.2 mg/dL (8.5-10.3) 06/19/23 19:39 Total Bilirubin 1.3 mg/dL (0.2-1.0) H 06/19/23 19:39 AST 26 IU/L (10-42) 06/19/23 19:39 ALT 26 IU/L (10-60) 06/19/23 19:39 Alkaline Phosphatase 70 IU/L (42-121) 06/19/23 19:39 Total Protein 6.5 g/dL (6.4-8.9) 06/19/23 19:39 Albumin 4.0 g/dL (3.2-5.5) 06/19/23 19:39 Globulin 2.5 g/dL (2.1-4.2) 06/19/23 19:39 Albumin/Globulin Ratio 1.6 (1.0-2.2) 06/19/23 19:39 Lipase 16 U/L (11-82) 06/19/23 19:39 Urine Color YELLOW 06/19/23 19:27 Urine Clarity BLOODY (CLEAR) 06/19/23 19:27 Urine pH 7.0 PH (5.0-7.5) 06/19/23 19:27 Ur Specific Magn[place] 1.020 (1.002-1.030) 06/19/23 19:27 Urine Protein NEGATIVE mg/dL (NEGATIVE) 06/19/23 19:27 Urine Glucose (UA) NEGATIVE mg/dL (NEGATIVE) 06/19/23 19:27 Urine Ketones 40 mg/dL (NEGATIVE) H 06/19/23 19:27 Urine Occult Blood NEGATIVE (NEGATIVE) 06/19/23 19:27 Urine Nitrite NEGATIVE (NEGATIVE) 06/19/23 19:27 Urine Bilirubin NEGATIVE (NEGATIVE) 06/19/23 19:27 Urine Urobilinogen 0.2 (NORMAL) E.U./dL (NORMAL) 06/19/23 19:27 Ur Leukocyte Esterase NEGATIVE (NEGATIVE) 06/19/23 19:27 Ur Microscopic Review NOT INDICATED 06/19/23 19:27 Urine Culture Comments NOT INDICATED 06/19/23 19:27 - Procedures Procedures: Procedures EXCISION OF DUODENUM, ENDO, DIAGN (07/09/20) EXCISION OF ESOPHAGOGASTRIC JUNCTION, ENDO, DIAGN (07/09/20) EXCISION OF LARGE INTESTINE, ENDO, DIAGN (07/09/20) EXCISION OF STOMACH, ENDO, DIAGN (07/09/20) ABX Reporting Has patient been on IV antibiotics over the past 48 hours?: No Current Medications - Current Medications Current Medications: Current Medications Generic Name Dose Route Start Last Admin Trade Name Freq PRN Reason Stop Dose Admin Atenolol 25 mg 06/20/23 09:00 06/20/23 08:30 Atenolol 25 Mg Tablet PO 25 mg DAILY DERIK Administration Atorvastatin Calcium 10 mg 06/20/23 09:00 06/20/23 08:30 Atorvastatin 10 Mg Tablet PO 10 mg DAILY DERIK Administration Levothyroxine Sodium 112 mcg 06/20/23 07:00 06/20/23 06:01 Levothyroxine 112 Mcg Tablet PO 112 mcg QDAC DERIK Administration Morphine Sulfate 2 mg 06/19/23 22:49 06/20/23 05:15 Morphine 2 Mg/Ml Carpuject IVP 2 mg Q4H PRN Administration Pain 8 to 10 Sodium Chloride 10 ml 06/20/23 01:00 06/20/23 08:30 Sodium Chloride Flush 0.9% 10 Ml Syringe IVP 10 ml 0100,0900,1700 DERIK Administration
[2023-06-20] MEDS: FAMOTIDINE 20 MG TABLET PO SCH ×2 (12:03→20:05)
[2023-06-20] MEDS: ACETAMINOPHEN 325 MG TABLET PO PRN (13:11)
--- NOTE | 2023-06-20 13:45 | PHARMACY PROGRESS NOTE ---
- Best Possible Medication History Admit Date and Time: 06/19/23 0722 Processed by: Pharmacy Medication History completed: Yes Patient Interview: Completed Secondary Source(s): Written medication list, Other family member, Pharmacy records As the person ultimately responsible for medication therapy, providers are able to order a medication from an existing home medication list in [facility] via the "Reconcile Routine" prior to Confirmation of that medication by family readiness support assistant. Such practice is discouraged except when the physician, in their clinical judgment, deems that a medical need exists for a medication without regard to previous use. Completed patient interview with assistance from Castro hoyt and reviewed self med list.
[2023-06-20] MEDS: IBUPROFEN 400 MG TABLET PO PRN (18:54)
--- NOTE | 2023-06-20 21:26 | CONSULTATION NOTE ---
Referring Provider Name of Referring Provider:: Mamadou Alejandro Consult Date: 06/20/23 Chief Complaint - Chief Complaint Chief Complaint: pelvic fractures History of Present Illness - Admitted From Admitted From:: ED - History Obtained From Records Reviewed: History, Xrays History obtained from: patient - History of Present Illness HPI Comment/Other: Alert and oriented 87yo Woman with cc of right groin/pelvic pain. S/p fall. Hurt r shoulder as well but xrays negatrive and able to raise and use arm. xrays and CT yesterday showed R inferior and superior pubic ramus fractures and a small right sacral ala fracture. Today she was able to get out of bed and stand with a walker for a few minutes with the PT. The plan made by family is transfer to rehab hospital then stay with son for a few weeks after discharge from rehab until she is strong enough to live on her own. Exam: NAD Able to move legs in bed. 2+ DP bilaterally and sensation intact to light touch bilateral le. no pain with logroll bilaterally. xrays show mildly displaced rgith inferiro and superior pubic rami fractures. the sacral fracture is not well visualized, possibly artefact. AP Pt is already successfully mobilizing. Anticoagulation if indicated given risks and benefits in this geriatric patient. Agree with plan to continue WBAT and mobilization in bed as well as ambulation WBAT with a walker. Agree with rehab stay for 2 weeks or so until able to function more independently. Patient may f/u with ortho in 6 weeks or sooner if any concerns. Signing off. 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 Her brother in [place] just . The 3 of them plan to drive down to [place] in 1 week. - POLST Patient has POLST: Yes Meds/Allgy - Home Medications Home Medications: Ambulatory Orders Medication Instructions Recorded Confirmed atenoloL [Atenolol] 25 mg PO DAILY #30 tablet 09/22/19 06/20/23 Albuterol Sulfate [Proair Hfa 1 - 2 puffs IH Q4HR PRN 07/20/20 06/20/23 Inhaler] Levothyroxine Sodium [Synthroid] 112 mcg ORAL DAILY 07/20/20 06/20/23 Simvastatin 20 mg PO DAILY PM 07/20/20 06/20/23 amLODIPine [Norvasc] 5 mg PO DAILY 07/20/20 06/20/23 buPROPion [Wellbutrin Sr] 100 mg PO DAILY 07/20/20 06/20/23 Juan/D3/Mag11/Zinc/Chief Nuclear Medicine Technologist/Charlie/Bor 1 tab ORAL BID 04/21/23 06/20/23 [Caltrate 600+D Plus Tablet] Cholecalciferol [Vitamin D3] 25 mcg PO DAILY 04/21/23 06/20/23 Lactobacillus Combination No.4 2 each PO BID 04/21/23 06/20/23 [Probiotic] Melatonin 5 mg PO BID 04/21/23 06/20/23 Multivitamin/Iron/Folic Acid 1 each PO DAILY 04/21/23 06/20/23 [Centrum Women Tablet] [place]-3/Dha/Epa/Fish Oil [Fish Oil 1,200 mg PO DAILY 04/21/23 06/20/23 1,200 mg Softgel] Omeprazole Magnesium 20 mg PO BID 04/21/23 06/20/23 Vit A/Vit C/Vit E/Zinc/Copper 1 each PO BID 04/21/23 06/20/23 [Preservision Areds Softgel] Cyanocobalamin (Vitamin B-12) 400 units PO DAILY 06/20/23 06/20/23 [Vitamin B-12 (1000 mcg sublingual)] Tocopheryl [Vitamin E] 400 unit PO DAILY 06/20/23 06/20/23 glucosamine HCL [Glucosamine HCl] 2,000 mg PO DAILY 06/20/23 06/20/23 - Allergies Allergies/Adverse Reactions: Allergies Allergy/AdvReac Type Severity Reaction Status Date / Time acetaminophen [From Percocet] Allergy Unknown Verified 06/19/23 15:01 gabapentin Allergy Unknown Verified 06/19/23 15:01 hydrocodone [From Vicodin] Allergy Rash Verified 06/19/23 15:01 nitrofurantoin Allergy Hives Verified 06/19/23 15:01 [From Macrobid] oxycodone [From Percocet] Allergy Unknown Verified 06/19/23 15:01 Sulfa (Sulfonamide Allergy Hives Verified 06/19/23 15:01 Antibiotics) Exam - Vital Signs Vital Signs: Vital Signs x48h Temp Pulse Resp BP BP Pulse Ox 06/20/23 18:50 99 16 99/60 96 06/20/23 17:29 36.3 C L 85 18 105/73 98 06/20/23 16:13 98/51 L 06/20/23 15:52 36.7 C 83 16 86/58 L 94 Conclusion/Plan - Lab Results Lab results reviewed: Yes Fish Bones: 06/19/23 19:39 06/19/23 19:39
[2023-06-20] MEDS ORDERED: SODIUM CHLORIDE 0.9% 500 ML IV ONE (22:48)
[2023-06-21] MEDS: LEVOTHYROXINE 112 MCG TABLET PO SCH (06:21)
[2023-06-21] MEDS: IBUPROFEN 400 MG TABLET PO PRN ×3 (06:21→19:32)
[2023-06-21] MEDS: ATORVASTATIN 10 MG TABLET PO SCH (08:58)
[2023-06-21] MEDS: FAMOTIDINE 20 MG TABLET PO SCH ×2 (08:58→21:40)
[2023-06-21] MEDS: SODIUM CHLORIDE FLUSH 0.9% 10 ML SYRINGE IVP SCH ×2 (08:59→16:21)
[2023-06-21] MEDS: ACETAMINOPHEN 325 MG TABLET PO PRN ×3 (10:21→21:40)
[2023-06-21] MEDS: atenoloL 25 MG TABLET PO SCH (10:21)
--- NOTE | 2023-06-21 11:45 | PROVIDER PROGRESS NOTE ---
Assessment/Plan - Problem List (1) Inferior pubic ramus fracture Qualifiers: Encounter type: initial encounter Fracture type: closed Laterality: right Qualified Code(s): S32.591A - Other specified fracture of right pubis, initial encounter for closed fracture Assessment/Plan: * Patient is status post ground-level fall at home sustaining fracture as above * Patient is hemodynamically stable * Alert and oriented with no associated LOC or antecedent symptoms * Patient admitted for nonoperative management including pain control, PT/OT, and likely care home facility placement * Continue pain meds including Tylenol, ibuprofen, Toradol, and minimize narcotics for breakthrough pain use * Plan for DC in next 1-2 days once SNF accepting (2) GERD (gastroesophageal reflux disease) Assessment/Plan: Pepcid PO (3) Hyperlipidemia Qualifiers: Hyperlipidemia type: unspecified Qualified Code(s): E78.5 - Hyperlipidemia, unspecified Assessment/Plan: Stable Cont home meds (4) Hypertension Assessment/Plan: BP soft Will d/c atenolol (5) Hypothyroidism Assessment/Plan: Stable Continue home levothyroxine - Current Meds Current Meds: Current Medications Generic Name Dose Route Start Last Admin Trade Name Freq PRN Reason Stop Dose Admin Acetaminophen 650 mg 06/20/23 11:10 06/21/23 10:21 Acetaminophen 325 Mg Tablet PO 650 mg Q4HR PRN Administration Pain or Fever > 38C (100.4F) Atenolol 25 mg 06/20/23 09:00 06/21/23 10:21 Atenolol 25 Mg Tablet PO Not Given DAILY DERIK Atorvastatin Calcium 10 mg 06/20/23 09:00 06/21/23 08:58 Atorvastatin 10 Mg Tablet PO 10 mg DAILY DERIK Administration Famotidine 20 mg 06/20/23 12:00 06/21/23 08:58 Famotidine 20 Mg Tablet PO 20 mg BID DERIK Administration Ibuprofen 400 mg 06/20/23 08:23 06/21/23 06:21 Ibuprofen 400 Mg Tablet PO 400 mg Q6HR PRN Administration Moderate Pain (Level 4-6) Levothyroxine Sodium 112 mcg 06/20/23 07:00 06/21/23 06:21 Levothyroxine 112 Mcg Tablet PO 112 mcg QDAC DERIK Administration Morphine Sulfate 2 mg 06/19/23 22:49 06/20/23 11:43 Morphine 2 Mg/Ml Carpuject IVP 2 mg Q4H PRN Administration Pain 8 to 10 Ondansetron HCl 4 mg 06/19/23 22:49 06/20/23 17:25 Ondansetron 4 Mg/2 Ml Vial IVP 4 mg Q6HR PRN Administration Nausea / Vomiting Sodium Chloride 10 ml 06/20/23 01:00 06/21/23 08:59 Sodium Chloride Flush 0.9% 10 Ml Syringe IVP 10 ml 0100,0900,1700 DERIK Administration - Lab Result Lab results reviewed: Yes Fish Bone Diagrams: 06/19/23 19:39 06/19/23 19:39 - Additional Planning My Orders: My Active Orders 06/20/23 11:10 Acetaminophen [Tylenol] 650 mg PO Q4HR PRN 06/20/23 12:00 Famotidine [Pepcid] 20 mg PO BID Subjective - Subjective Patient Reports: Feeling Better Objective Vital Signs: Vital Signs - 24 hr 06/20/23 06/20/23 06/20/23 12:00 12:25 15:52 Temperature 36.4 C L 36.7 C Heart Rate [ 91 Activity] Heart Rate [ 85 83 Brachial] Heart Rate [ 79 Sitting] Heart Rate [ 81 Supine] Respiratory 16 16 Rate Blood Pressure 80/53 L [Activity] Blood Pressure 129/76 86/58 L [Left Brachial artery] Blood Pressure [Right Brachial artery] Blood Pressure 93/62 [Sitting] Blood Pressure 104/70 [Supine] O2 Saturation 96 94 O2 Saturation [ 94 With Activity] 06/20/23 06/20/23 06/20/23 16:13 17:29 18:50 Temperature 36.3 C L Heart Rate [ Activity] Heart Rate [ 85 99 Brachial] Heart Rate [ Sitting] Heart Rate [ Supine] Respiratory 18 16 Rate Blood Pressure [Activity] Blood Pressure 98/51 L 105/73 [Left Brachial artery] Blood Pressure 99/60 [Right Brachial artery] Blood Pressure [Sitting] Blood Pressure [Supine] O2 Saturation 98 96 O2 Saturation [ With Activity] 06/20/23 06/20/23 06/20/23 21:30 22:05 22:37 Temperature 36.5 C Heart Rate [ Activity] Heart Rate [ 76 67 70 Brachial] Heart Rate [ Sitting] Heart Rate [ Supine] Respiratory 16 Rate Blood Pressure [Activity] Blood Pressure 85/50 L 88/55 L 92/56 L [Left Brachial artery] Blood Pressure [Right Brachial artery] Blood Pressure [Sitting] Blood Pressure [Supine] O2 Saturation 95 O2 Saturation [ With Activity] 06/20/23 06/21/23 06/21/23 23:39 03:10 07:47 Temperature 36.5 C 36.6 C 36.5 C Heart Rate [ Activity] Heart Rate [ 71 76 77 Brachial] Heart Rate [ Sitting] Heart Rate [ Supine] Respiratory 16 16 16 Rate Blood Pressure [Activity] Blood Pressure 96/49 L 98/62 109/77 [Left Brachial artery] Blood Pressure [Right Brachial artery] Blood Pressure [Sitting] Blood Pressure [Supine] O2 Saturation 96 94 93 O2 Saturation [ With Activity] 06/21/23 09:00 Temperature Heart Rate [ Activity] Heart Rate [ Brachial] Heart Rate [ Sitting] Heart Rate [ Supine] Respiratory Rate Blood Pressure [Activity] Blood Pressure [Left Brachial artery] Blood Pressure 97/58 L [Right Brachial artery] Blood Pressure [Sitting] Blood Pressure [Supine] O2 Saturation O2 Saturation [ With Activity] Oxygen O2 Source [With Activity] Room air O2 Source Room air I&O (Last 24 Hrs): Intake and Output Totals x24h 06/19/23 06/20/23 06/21/23 23:59 23:59 23:59 Intake Total 1000 1560 150 Output Total 670 250 Balance 1000 890 -100 General: Alert, Oriented x3 HEENT: Atraumatic, EOMI Neuro: Alert, CN 2-12 Grossly Intact Cardiovascular: Normal S1, Normal S2 Respiratory: No respiratory distress, Breath sounds nml Abdomen: Normal bowel sounds, Soft Extremities: No clubbing, No cyanosis, No edema, Normal pulses - Results Results: Laboratory Results WBC 10.5 x10^3/uL (4.8-10.8) 06/19/23 19:39 RBC 4.00 10^6/uL (4.20-5.40) L 06/19/23 19:39 Hgb 12.5 g/dL (12.0-16.0) 06/19/23 19:39 Hct 38.6 % (37.0-47.0) 06/19/23 19:39 MCV 96.5 fL (81.0-99.0) 06/19/23 19:39 MCH 31.3 pg (27.0-31.0) H 06/19/23 19:39 MCHC 32.4 g/dL (32.0-36.0) 06/19/23 19:39 RDW 16.0 % (12.0-15.0) H 06/19/23 19:39 Plt Count 169 10^3/uL (130-450) 06/19/23 19:39 MPV 9.7 fL (7.9-10.8) 06/19/23 19:39 Neut # (Auto) 9.0 10^3/uL (1.5-6.6) H 06/19/23 19:39 Lymph # (Auto) 0.8 10^3/uL (1.5-3.5) L 06/19/23 19:39 [place] # (Auto) 0.6 10^3/uL (0.0-1.0) 06/19/23 19:39 Eos # (Auto) 0.0 10^3/uL (0.0-0.7) 06/19/23 19:39 Baso # (Auto) 0.0 10^3/uL (0.0-0.1) 06/19/23 19:39 Absolute Nucleated RBC 0.00 x10^3/uL 06/19/23 19:39 Nucleated RBC % 0.0 /100WBC 06/19/23 19:39 PT 13.6 secs (9.9-12.6) H 06/19/23 19:39 INR 1.3 (0.8-1.2) H 06/19/23 19:39 Sodium 139 mmol/L (135-145) 06/19/23 19:39 Potassium 3.7 mmol/L (3.5-4.5) 06/19/23 19:39 Chloride 105 mmol/L (101-111) 06/19/23 19:39 Carbon Dioxide 26 mmol/L (21-32) 06/19/23 19:39 Anion Gap 8.0 (6-13) 06/19/23 19:39 BUN 16 mg/dL (6-20) 06/19/23 19:39 Creatinine 0.6 mg/dL (0.6-1.3) 06/19/23 19:39 Estimated GFR (MDRD) 94 (>89) 06/19/23 19:39 Glucose 112 mg/dL (74-104) H 06/19/23 19:39 Calcium 9.2 mg/dL (8.5-10.3) 06/19/23 19:39 Total Bilirubin 1.3 mg/dL (0.2-1.0) H 06/19/23 19:39 AST 26 IU/L (10-42) 06/19/23 19:39 ALT 26 IU/L (10-60) 06/19/23 19:39 Alkaline Phosphatase 70 IU/L (42-121) 06/19/23 19:39 Total Protein 6.5 g/dL (6.4-8.9) 06/19/23 19:39 Albumin 4.0 g/dL (3.2-5.5) 06/19/23 19:39 Globulin 2.5 g/dL (2.1-4.2) 06/19/23 19:39 Albumin/Globulin Ratio 1.6 (1.0-2.2) 06/19/23 19:39 Lipase 16 U/L (11-82) 06/19/23 19:39 Urine Color YELLOW 06/19/23 19:27 Urine Clarity BLOODY (CLEAR) 06/19/23 19:27 Urine pH 7.0 PH (5.0-7.5) 06/19/23 19:27 Ur Specific [place] 1.020 (1.002-1.030) 06/19/23 19:27 Urine Protein NEGATIVE mg/dL (NEGATIVE) 06/19/23 19:27 Urine Glucose (UA) NEGATIVE mg/dL (NEGATIVE) 06/19/23 19:27 Urine Ketones 40 mg/dL (NEGATIVE) H 06/19/23 19:27 Urine Occult Blood NEGATIVE (NEGATIVE) 06/19/23 19:27 Urine Nitrite NEGATIVE (NEGATIVE) 06/19/23 19:27 Urine Bilirubin NEGATIVE (NEGATIVE) 06/19/23 19:27 Urine Urobilinogen 0.2 (NORMAL) E.U./dL (NORMAL) 06/19/23 19:27 Ur Leukocyte Esterase NEGATIVE (NEGATIVE) 06/19/23 19:27 Ur Microscopic Review NOT INDICATED 06/19/23 19:27 Urine Culture Comments NOT INDICATED 06/19/23 19:27 - Procedures Procedures: Procedures EXCISION OF DUODENUM, ENDO, DIAGN (07/09/20) EXCISION OF ESOPHAGOGASTRIC JUNCTION, ENDO, DIAGN (07/09/20) EXCISION OF LARGE INTESTINE, ENDO, DIAGN (07/09/20) EXCISION OF STOMACH, ENDO, DIAGN (07/09/20) ABX Reporting Has patient been on IV antibiotics over the past 48 hours?: No Current Medications - Current Medications Current Medications: Current Medications Generic Name Dose Route Start Last Admin Trade Name Freq PRN Reason Stop Dose Admin Acetaminophen 650 mg 06/20/23 11:10 06/21/23 10:21 Acetaminophen 325 Mg Tablet PO 650 mg Q4HR PRN Administration Pain or Fever > 38C (100.4F) Atenolol 25 mg 06/20/23 09:00 06/21/23 10:21 Atenolol 25 Mg Tablet PO Not Given DAILY DERIK Atorvastatin Calcium 10 mg 06/20/23 09:00 06/21/23 08:58 Atorvastatin 10 Mg Tablet PO 10 mg DAILY DERIK Administration Famotidine 20 mg 06/20/23 12:00 06/21/23 08:58 Famotidine 20 Mg Tablet PO 20 mg BID DERIK Administration Ibuprofen 400 mg 06/20/23 08:23 06/21/23 06:21 Ibuprofen 400 Mg Tablet PO 400 mg Q6HR PRN Administration Moderate Pain (Level 4-6) Levothyroxine Sodium 112 mcg 06/20/23 07:00 06/21/23 06:21 Levothyroxine 112 Mcg Tablet PO 112 mcg QDAC DERIK Administration Morphine Sulfate 2 mg 06/19/23 22:49 06/20/23 11:43 Morphine 2 Mg/Ml Carpuject IVP 2 mg Q4H PRN Administration Pain 8 to 10 Ondansetron HCl 4 mg 06/19/23 22:49 06/20/23 17:25 Ondansetron 4 Mg/2 Ml Vial IVP 4 mg Q6HR PRN Administration Nausea / Vomiting Sodium Chloride 10 ml 06/20/23 01:00 06/21/23 08:59 Sodium Chloride Flush 0.9% 10 Ml Syringe IVP 10 ml 0100,0900,1700 DERIK Administration
[2023-06-22] MEDS: IBUPROFEN 400 MG TABLET PO PRN ×3 (03:50→21:30)
[2023-06-22] MEDS: SODIUM CHLORIDE FLUSH 0.9% 10 ML SYRINGE IVP SCH ×3 (03:50→15:50)
[2023-06-22] MEDS: LEVOTHYROXINE 112 MCG TABLET PO SCH (06:49)
[2023-06-22] MEDS: ACETAMINOPHEN 325 MG TABLET PO PRN ×2 (06:49→18:36)
--- NOTE | 2023-06-22 09:26 | PROVIDER PROGRESS NOTE ---
Assessment/Plan - Problem List (1) Inferior pubic ramus fracture Qualifiers: Encounter type: initial encounter Fracture type: closed Laterality: right Qualified Code(s): S32.591A - Other specified fracture of right pubis, initial encounter for closed fracture Assessment/Plan: * Patient is status post ground-level fall at home sustaining fracture as above * Patient is hemodynamically stable * Alert and oriented with no associated LOC or antecedent symptoms * Patient admitted for nonoperative management including pain control, PT/OT, and likely senior care facility placement * Continue pain meds including Tylenol, ibuprofen, Toradol, and minimize narcotics for breakthrough pain use * Plan for DC in next 1-2 days once SNF accepting (2) GERD (gastroesophageal reflux disease) Assessment/Plan: Pepcid PO (3) Hyperlipidemia Qualifiers: Hyperlipidemia type: unspecified Qualified Code(s): E78.5 - Hyperlipidemia, unspecified Assessment/Plan: Stable Cont home meds (4) Hypertension Assessment/Plan: * Patient is on atenolol at home which is less than an ideal choice for patient at 87 years of age * BP has been soft while in hospital so this has been discontinued * With no antihypertensive meds, BP has been low to normal * Would recommend discontinuing atenolol at discharge (5) Hypothyroidism Assessment/Plan: * Stable * Continue home levothyroxine - Current Meds Current Meds: Current Medications Generic Name Dose Route Start Last Admin Trade Name Freq PRN Reason Stop Dose Admin Acetaminophen 650 mg 06/20/23 11:10 06/22/23 06:49 Acetaminophen 325 Mg Tablet PO 650 mg Q4HR PRN Administration Pain or Fever > 38C (100.4F) Famotidine 20 mg 06/20/23 12:00 06/21/23 21:40 Famotidine 20 Mg Tablet PO 20 mg BID DERIK Administration Ibuprofen 400 mg 06/20/23 08:23 06/22/23 03:50 Ibuprofen 400 Mg Tablet PO 400 mg Q6HR PRN Administration Moderate Pain (Level 4-6) Levothyroxine Sodium 112 mcg 06/20/23 07:00 06/22/23 06:49 Levothyroxine 112 Mcg Tablet PO 112 mcg QDAC DERIK Administration Morphine Sulfate 2 mg 06/19/23 22:49 06/20/23 11:43 Morphine 2 Mg/Ml Carpuject IVP 2 mg Q4H PRN Administration Pain 8 to 10 Ondansetron HCl 4 mg 06/19/23 22:49 06/20/23 17:25 Ondansetron 4 Mg/2 Ml Vial IVP 4 mg Q6HR PRN Administration Nausea / Vomiting Sodium Chloride 10 ml 06/20/23 01:00 06/22/23 03:50 Sodium Chloride Flush 0.9% 10 Ml Syringe IVP 10 ml 0100,0900,1700 DERIK Administration - Lab Result Lab results reviewed: Yes Fish Bone Diagrams: 06/19/23 19:39 06/19/23 19:39 - Additional Planning Condition/Complexity: Stable Subjective - Subjective Patient Reports: Other (Patient did not sleep very well last night) Objective Vital Signs: Vital Signs - 24 hr 06/21/23 06/21/23 06/21/23 12:25 15:59 20:00 Temperature 36.6 C 36.5 C 36.5 C Heart Rate [ 83 76 82 Brachial] Respiratory 16 16 16 Rate Blood Pressure 102/66 111/80 115/69 [Left Brachial artery] O2 Saturation 93 97 95 06/21/23 06/22/23 06/22/23 23:53 04:35 08:18 Temperature 36.4 C L 36.5 C 36.3 C L Heart Rate [ 73 96 80 Brachial] Respiratory 16 18 16 Rate Blood Pressure 93/57 L 135/76 H 126/74 [Left Brachial artery] O2 Saturation 95 97 98 Oxygen O2 Source [With Activity] Room air O2 Source Room air I&O (Last 24 Hrs): Intake and Output Totals x24h 06/20/23 06/21/23 06/22/23 23:59 23:59 23:59 Intake Total 1560 1080 100 Output Total 670 1250 200 Balance 890 -170 -100 General: Alert, Oriented x3, Cooperative HEENT: Atraumatic, EOMI, Other (Facial ecchymosis with right infraorbital swelling, improved) Neuro: Alert, CN 2-12 Grossly Intact, Oriented Times 3 Cardiovascular: Regular rate, Normal S1, Normal S2 Respiratory: Chest non-tender, No respiratory distress, Breath sounds nml Abdomen: Normal bowel sounds, Soft Extremities: No clubbing, No cyanosis, No edema - Results Results: Laboratory Results WBC 10.5 x10^3/uL (4.8-10.8) 06/19/23 19:39 RBC 4.00 10^6/uL (4.20-5.40) L 06/19/23 19:39 Hgb 12.5 g/dL (12.0-16.0) 06/19/23 19:39 Hct 38.6 % (37.0-47.0) 06/19/23 19:39 MCV 96.5 fL (81.0-99.0) 06/19/23 19: MCH 31.3 pg (27.0-31.0) H 06/19/23 19:39 MCHC 32.4 g/dL (32.0-36.0) 06/19/23 19: RDW 16.0 % (12.0-15.0) H 06/19/23 19:39 Plt Count 169 10^3/uL (130-450) 06/19/23 19:39 MPV 9.7 fL (7.9-10.8) 06/19/23 19:39 Neut # (Auto) 9.0 10^3/uL (1.5-6.6) H 06/19/23 19:39 Lymph # (Auto) 0.8 10^3/uL (1.5-3.5) L 06/19/23 19:39 [place] # (Auto) 0.6 10^3/uL (0.0-1.0) 06/19/23 19:39 Eos # (Auto) 0.0 10^3/uL (0.0-0.7) 06/19/23 19: Baso # (Auto) 0.0 10^3/uL (0.0-0.1) 06/19/23 19:39 Absolute Nucleated RBC 0.00 x10^3/uL 06/19/23 19:39 Nucleated RBC % 0.0 /100WBC 06/19/23 19:39 PT 13.6 secs (9.9-12.6) H 06/19/23 19:39 INR 1.3 (0.8-1.2) H 06/19/23 19:39 Sodium 139 mmol/L (135-145) 06/19/23 19:39 Potassium 3.7 mmol/L (3.5-4.5) 06/19/23 19:39 Chloride 105 mmol/L (101-111) 06/19/23 19:39 Carbon Dioxide 26 mmol/L (21-32) 06/19/23 19:39 Anion Gap 8.0 (6-13) 06/19/23 19:39 BUN 16 mg/dL (6-20) 06/19/23 19:39 Creatinine 0.6 mg/dL (0.6-1.3) 06/19/23 19:39 Estimated GFR (MDRD) 94 (>89) 06/19/23 19:39 Glucose 112 mg/dL (74-104) H 06/19/23 19:39 Calcium 9.2 mg/dL (8.5-10.3) 06/19/23 19:39 Total Bilirubin 1.3 mg/dL (0.2-1.0) H 06/19/23 19:39 AST 26 IU/L (10-42) 06/19/23 19:39 ALT 26 IU/L (10-60) 06/19/23 19:39 Alkaline Phosphatase 70 IU/L (42-121) 06/19/23 19:39 Total Protein 6.5 g/dL (6.4-8.9) 06/19/23 19:39 Albumin 4.0 g/dL (3.2-5.5) 06/19/23 19:39 Globulin 2.5 g/dL (2.1-4.2) 06/19/23 19:39 Albumin/Globulin Ratio 1.6 (1.0-2.2) 06/19/23 19:39 Lipase 16 U/L (11-82) 06/19/23 19:39 Urine Color YELLOW 06/19/23 19:27 Urine Clarity BLOODY (CLEAR) 06/19/23 19:27 Urine pH 7.0 PH (5.0-7.5) 06/19/23 19:27 Ur Specific [place] 1.020 (1.002-1.030) 06/19/23 19:27 Urine Protein NEGATIVE mg/dL (NEGATIVE) 06/19/23 19:27 Urine Glucose (UA) NEGATIVE mg/dL (NEGATIVE) 06/19/23 19:27 Urine Ketones 40 mg/dL (NEGATIVE) H 06/19/23 19:27 Urine Occult Blood NEGATIVE (NEGATIVE) 06/19/23 19:27 Urine Nitrite NEGATIVE (NEGATIVE) 06/19/23 19:27 Urine Bilirubin NEGATIVE (NEGATIVE) 06/19/23 19:27 Urine Urobilinogen 0.2 (NORMAL) E.U./dL (NORMAL) 06/19/23 19:27 Ur Leukocyte Esterase NEGATIVE (NEGATIVE) 06/19/23 19:27 Ur Microscopic Review NOT INDICATED 06/19/23 19:27 Urine Culture Comments NOT INDICATED 06/19/23 19:27 - Procedures Procedures: Procedures EXCISION OF DUODENUM, ENDO, DIAGN (07/09/20) EXCISION OF ESOPHAGOGASTRIC JUNCTION, ENDO, DIAGN (07/09/20) EXCISION OF LARGE INTESTINE, ENDO, DIAGN (07/09/20) EXCISION OF STOMACH, ENDO, DIAGN (07/09/20) ABX Reporting Has patient been on IV antibiotics over the past 48 hours?: No Current Medications - Current Medications Current Medications: Current Medications Generic Name Dose Route Start Last Admin Trade Name Freq PRN Reason Stop Dose Admin Acetaminophen 650 mg 06/20/23 11:10 06/22/23 06:49 Acetaminophen 325 Mg Tablet PO 650 mg Q4HR PRN Administration Pain or Fever > 38C (100.4F) Famotidine 20 mg 06/20/23 12:00 06/21/23 21:40 Famotidine 20 Mg Tablet PO 20 mg BID DERIK Administration Ibuprofen 400 mg 06/20/23 08:23 06/22/23 03:50 Ibuprofen 400 Mg Tablet PO 400 mg Q6HR PRN Administration Moderate Pain (Level 4-6) Levothyroxine Sodium 112 mcg 06/20/23 07:00 06/22/23 06:49 Levothyroxine 112 Mcg Tablet PO 112 mcg QDAC DERIK Administration Morphine Sulfate 2 mg 06/19/23 22:49 06/20/23 11:43 Morphine 2 Mg/Ml Carpuject IVP 2 mg Q4H PRN Administration Pain 8 to 10 Ondansetron HCl 4 mg 06/19/23 22:49 06/20/23 17:25 Ondansetron 4 Mg/2 Ml Vial IVP 4 mg Q6HR PRN Administration Nausea / Vomiting Sodium Chloride 10 ml 06/20/23 01:00 06/22/23 03:50 Sodium Chloride Flush 0.9% 10 Ml Syringe IVP 10 ml 0100,0900,1700 DERIK Administration
[2023-06-22] MEDS: FAMOTIDINE 20 MG TABLET PO SCH ×2 (10:51→21:30)
[2023-06-22] MEDS: polyethylene glycoL 3350 17 GM PACKET PO SCH (10:51)
[2023-06-22] MEDS: CALCIUM CARBONATE CHEW 500 MG TABLET PO SCH ×2 (10:58→21:30)
[2023-06-22] MEDS: CHOLECALCIFEROL 25 MCG TABLET PO SCH (18:17)
[2023-06-22] MEDS: ATORVASTATIN 10 MG TABLET PO SCH (21:30)
[2023-06-23] MEDS: ACETAMINOPHEN 325 MG TABLET PO PRN ×2 (04:21→11:30)
[2023-06-23] MEDS: SODIUM CHLORIDE FLUSH 0.9% 10 ML SYRINGE IVP SCH ×3 (04:23→19:44)
[2023-06-23] MEDS: LEVOTHYROXINE 112 MCG TABLET PO SCH (06:53)
[2023-06-23] MEDS: CHOLECALCIFEROL 25 MCG TABLET PO SCH (08:59)
[2023-06-23] MEDS: polyethylene glycoL 3350 17 GM PACKET PO SCH (08:59)
[2023-06-23] MEDS: FAMOTIDINE 20 MG TABLET PO SCH ×2 (08:59→19:44)
[2023-06-23] MEDS: IBUPROFEN 400 MG TABLET PO PRN ×2 (10:04→19:42)
--- NOTE | 2023-06-23 10:44 | PROVIDER PROGRESS NOTE ---
Subjective - Prog Note Date Prog Note Date: 06/23/23 Prog Note Time: 11:19 - Subjective Subjective: She is so scared about going to a senior living. She says that her friend of hers went there for years ago and never came out. So she is afraid the same th ing is can happen her. She is also afraid that she will never be able to regain her independence again. She is very fretful. I tried to reassure her as much as possible. I told her that her vlad is under her control. I recognize, and we all recognize, that she is in tremendous pain. But the more she gets up and works with PT, the lesser risk of UTI and pneumonia, and the higher the odds are she can get back home. She says that when she leaves the senior living she will be living with her son until she can live independently again. Her 88th birthday is in 2 weeks. PT was working with her. She was sitting on the toilet and when she stood up heart rate was in the 160s, severely dizzy and nearly syncopal. Nursing is scrambling to try and get a blood pressure on her. Current Medications - Current Medications Current Medications: Active Medications Acetaminophen (Acetaminophen 325 Mg Tablet) 650 mg PO Q4HR PRN PRN Reason: Pain or Fever > 38C (100.4F) Last Admin: 06/23/23 04:21 Dose: 650 mg Atorvastatin Calcium (Atorvastatin 10 Mg Tablet) 10 mg PO QPM [facility] Last Admin: 06/22/23 21:30 Dose: 10 mg Calcium Carbonate/Glycine (Calcium Carbonate Chew 500 Mg Tablet) 500 mg PO 1 100,2100 [facility] Last Admin: 06/22/23 21:30 Dose: 500 mg Cholecalciferol (Cholecalciferol 25 Mcg Tablet) 50 mcg PO DAILY [facility] Last Admin: 06/23/23 08:59 Dose: 50 mcg Famotidine (Famotidine 20 Mg Tablet) 20 mg PO BID [facility] Last Admin: 06/23/23 08:59 Dose: 20 mg Ibuprofen (Ibuprofen 400 Mg Tablet) 400 mg PO Q6HR PRN PRN Reason: Moderate Pain (Level 4-6) Last Admin: 06/23/23 10:04 Dose: 400 mg Levothyroxine Sodium (Levothyroxine 112 Mcg Tablet) 112 mcg PO QDAC [facility] Last Admin: 06/23/23 06:53 Dose: 112 mcg Morphine Sulfate (Morphine 2 Mg/Ml Carpuject) 2 mg IVP Q4H PRN PRN Reason: Pain 8 to 10 Last Admin: 06/20/23 11:43 Dose: 2 mg Ondansetron HCl (Ondansetron 4 Mg/2 Ml Vial) 4 mg IVP Q6HR PRN PRN Reason: Nausea / Vomiting Last Admin: 06/20/23 17:25 Dose: 4 mg Polyethylene Glycol (Polyethylene Glycol 3350 17 Gm Packet) 17 gm PO DAILY [facility] Last Admin: 06/23/23 08:59 Dose: Not Given Sodium Chloride (Sodium Chloride Flush 0.9% 10 Ml Syringe) 10 ml IVP PRN PRN PRN Reason: NEEDED PER PROVIDER ORDERS Sodium Chloride (Sodium Chloride Flush 0.9% 10 Ml Syringe) 10 ml IVP 0100,0900,1700 [facility] Last Admin: 06/23/23 09:02 Dose: 10 ml Albuterol Sulfate [Proair Hfa Inhaler] 1 - 2 puffs IH Q4HR PRN 07/20/20 Levothyroxine Sodium [Synthroid] 112 mcg ORAL DAILY 07/20/20 Simvastatin 20 mg PO DAILY PM 07/20/20 amLODIPine [Norvasc] 5 mg PO DAILY 07/20/20 buPROPion [Wellbutrin Sr] 100 mg PO DAILY 07/20/20 Juan/D3/Mag11/Zinc/Test Preparer/Charlie/Bor [Caltrate 600+D Plus Tablet] 1 tab ORAL BID 04/21/23 Cholecalciferol [Vitamin D3] 25 mcg PO DAILY 04/21/23 Lactobacillus Combination No.4 [Probiotic] 2 each PO BID 04/21/23 Melatonin 5 mg PO BID 04/21/23 Multivitamin/Iron/Folic Acid [Centrum Women Tablet] 1 each PO DAILY 04/21/23 [place]-3/Dha/Epa/Fish Oil [Fish Oil 1,200 mg Softgel] 1,200 mg PO DAILY 04/21/23 Omeprazole Magnesium 20 mg PO BID 04/21/23 Vit A/Vit C/Vit E/Zinc/Copper [Preservision Areds Softgel] 1 each PO BID 04/21/23 Cyanocobalamin (Vitamin B-12) [Vitamin B-12 (1000 mcg sublingual)] 400 units PO DAILY 06/20/23 Tocopheryl [Vitamin E] 400 unit PO DAILY 06/20/23 glucosamine HCL [Glucosamine HCl] 2,000 mg PO DAILY 06/20/23 Objective - Vital Signs/Intake & Output Reviewed Vital Signs: Yes Vital Signs: Vital Signs x48h Temp Pulse Resp BP BP Pulse Ox 06/23/23 08:15 36.3 C L 80 16 141/95 H 99 06/23/23 04:29 36.2 C L 86 16 147/100 H 95 Intake & Output: Intake & Output 06/20/23 06/21/23 06/22/23 06/23/23 23:59 23:59 23:59 23:59 Intake Total 1560 1080 1260 Output Total 670 1250 400 200 Balance 890 -170 860 -200 - Objective General Appearance: positive: Alert, Mild distress (Emotionally. Pain is controlled while she is in her bed. She had a bath and felt wonderful from that perspective, and then the drop in BP), Other (This morning she was a delores, alert, oriented to person place and situation. Fretful and anxious about the fu ture and very appropriate with speech, demeanor) Eyes Bilateral: positive: PERRL, EOMI ENT: positive: No signs of dehydration, Other (The entire right side of her face is black and blue) Neck: positive: No JVD. negative: Stiff neck Respiratory: positive: No respiratory distress. negative: Breath sounds nml (Diminished sounds at the bases. Shallow unlabored respiration), Wheezes, Rales, Rhonchi Cardiovascular: positive: Irregularly irregular, Tachycardia Abdomen: positive: Non-tender, No organomegaly, Nml bowel sounds, No distention Skin: positive: Warm, Dry Extremities: positive: Pedal edema. negative: Full ROM (She really cannot weight-bear too much and stand for too long. Difficult to flex and extend at the hip because of pain) Neurologic/Psychiatric: positive: Oriented x3 (Elderly female, very alert, lucid historian and speech), CN's nml (2-12), Motor nml - Lab Results Fish Bones: 06/19/23 19:39 06/19/23 19:39 Assessment/Plan - Problem List (1) Inferior pubic ramus fracture Impression: Qualifiers: Encounter type: initial encounter Fracture type: closed Laterality: right Qualified Code(s): S32.593J - Other specified fracture of right pubis, initial encounter for closed fracture Assessment/Plan: * Patient is status post ground-level fall at home sustaining fracture * Patient admitted for nonoperative management including pain control, PT/OT, and likely prison facility placement * Continue pain meds including Tylenol, ibuprofen, Toradol, and minimize narcotics for breakthrough pain use * Plan for DC was today since SNF accepted but with change in BP will investigate w stat CBC, BMP, and make sure she is not bleeding into her pelvis or afib is uncontrolled. Will cancel transfer to SNF for today and aim for tomorrow * Patient is not hemodynamically stable today. She already had soft BP as noted in problem #4 below. * Alert and oriented with no associated LOC or antecedent symptoms * Reassurance provided to patient. (2) Orthostatic hypotention I will order CBC and CMP as well as EKG. I am looking for causes such as pelvic bleeding, ST changes, electrolyte changes. (3) GERD (gastroesophageal reflux disease) Assessment/Plan: Pepcid PO (4) Hyperlipidemia Qualifiers: Hyperlipidemia type: unspecified Qualified Code(s): E78.5 - Hyperlipidemia, unspecified Assessment/Plan: Stable Cont home meds (5) Hypertension Assessment/Plan: * Patient is on atenolol at home which is less than an ideal choice for patient at 87 years of age * BP has been soft while in hospital so this has been discontinued * With no antihypertensive meds, BP has been low to normal * I am not continuing atenolol at discharge but she will need rate control (6) Hypothyroidism Assessment/Plan: * Stable * Continue home levothyroxine (7) Chronic atrial fib w RVR * Can't use atenolol so I willl try low dose metoprolol once I have evaluated the drop in BP. If I can't use metoprolol, I may use digoxing 0.25 mg IVP for 4 doses and then transition to daily 0.125 mg * No anticoagulation since she has recent pelvic fx. At most I would recommend ASA daily.
[2023-06-23] MEDS: CALCIUM CARBONATE CHEW 500 MG TABLET PO SCH ×2 (11:30→19:43)
[2023-06-23 11:39] LABS: BASOPHILS % (AUTO) 0.3 %; EOSINOPHILS # (AUTO) 0.1 10^3/uL (0.0-0.7); EOSINOPHILS % (AUTO) 1.5 %; HCT - HEMATOCRIT 36.4 % (37.0-47.0); HGB - HEMOGLOBIN 11.6 g/dL (12.0-16.0); LYMPHOCYTES # (AUTO) 1.8 10^3/uL (1.5-3.5); LYMPHOCYTES % (AUTO) 19.9 %; MEAN CORPUSCULAR HEMOGLOBIN 30.9 pg (27.0-31.0); MEAN CORPUSCULAR HGB CONC 31.9 g/dL (32.0-36.0); MEAN CORPUSCULAR VOLUME 97.1 fL (81.0-99.0); MEAN PLATELET VOLUME 10.1 fL (7.9-10.8); MONOCYTES # (AUTO) 0.5 10^3/uL (0.0-1.0); MONOCYTES % (AUTO) 5.9 %; NEUTROPHILS # (AUTO) 6.4 10^3/uL (1.5-6.6); NEUTROPHILS % (AUTO) 72.2 %; PLT - PLATELET COUNT 168 10^3/uL (130-450); RED BLOOD COUNT 3.75 10^6/uL (4.20-5.40); RED CELL DISTRIBUTION WIDTH 16.1 % (12.0-15.0); WHITE BLOOD COUNT 8.8 x10^3/uL (4.8-10.8)
[2023-06-23 11:53] LABS: ALBUMIN 3.7 g/dL (3.2-5.5); ALBUMIN/GLOBULIN RATIO 1.4 (1.0-2.2); BILIRUBIN,TOTAL 1.2 mg/dL (0.2-1.0); CALCIUM 9.3 mg/dL (8.5-10.3); CREATININE 0.7 mg/dL (0.6-1.3); POTASSIUM 3.8 mmol/L (3.5-4.5); TOTAL PROTEIN 6.4 g/dL (6.4-8.9)
[2023-06-23 12:32] VITALS: O2SAT 98
[2023-06-23] MEDS: MORPHINE 2 MG/ML CARPUJECT IVP PRN (13:13)
--- NOTE | 2023-06-23 15:10 | CT Report ---
PROCEDURE: PELVIS W INDICATIONS: sudden hypotensio, tachy in pelvic fx CONTRAST: 100ml Omni 300 TECHNIQUE: After the administration of intravenous contrast, a CT scan of the pelvis was performed. Images were recorded and evaluated at appropriate window settings. Reformats: axial MIP of the chest, coronal an d sagittal. For radiation dose reduction, the following was used: automated exposure control, adjustm ent of mA and/or kV according to patient size. COMPARISON: 06/19/2023, 07/10/2020 FINDINGS: Image quality: Excellent. Anterior and lateral to the bladder, there is an extraperitoneal soft tissue hematoma which is adjace nt to the comminuted right pubic rami fracture measuring 3.4 x 8.5 x 8.2 cm. Hematoma has mass effect on the bladder at the left. No evidence of active bleeding. Minimal free fluid in the right pericoli c gutter noted as well. Otherwise, the visualized pelvic organs are within normal limits. Aortic atherosclerotic vascular joanne cification without aneurysm. Sigmoid diverticulosis noted. Multilevel degenerative disc disease and a rthropathy present in the lower lumbar spine. IMPRESSION: 1. Extraperitoneal soft tissue hematoma with mass effect in the bladder has increased in size from th e prior exam. No evidence of active bleeding 2. Comminuted right pubic rami fracture Reviewed by: Jose Richmond MD on 06/23/2023 2:09 PM AKDT Approved by: Jose Richmond MD on 06/23/2023 2:09 PM AKDT Station ID: [id number]
[2023-06-23] MEDS: ATORVASTATIN 10 MG TABLET PO SCH (19:43)
[2023-06-23] MEDS: DIGOXIN 500 MCG/2 ML AMP IVP SCH (19:46)
[2023-06-24] MEDS: DIGOXIN 500 MCG/2 ML AMP IVP SCH ×3 (01:59→12:55)
[2023-06-24] MEDS: SODIUM CHLORIDE FLUSH 0.9% 10 ML SYRINGE IVP SCH ×2 (02:01→08:38)
[2023-06-24] MEDS: SODIUM CHLORIDE FLUSH 0.9% 10 ML SYRINGE IVP PRN ×2 (05:35→07:14)
[2023-06-24] MEDS: MORPHINE 2 MG/ML CARPUJECT IVP PRN ×2 (05:35→12:55)
[2023-06-24] MEDS: LEVOTHYROXINE 112 MCG TABLET PO SCH (07:14)
[2023-06-24] MEDS: IBUPROFEN 400 MG TABLET PO PRN (07:19)
[2023-06-24 08:01] LABS: BASOPHILS % (AUTO) 0.6 %; EOSINOPHILS # (AUTO) 0.2 10^3/uL (0.0-0.7); EOSINOPHILS % (AUTO) 2.1 %; HCT - HEMATOCRIT 35.1 % (37.0-47.0); HGB - HEMOGLOBIN 11.3 g/dL (12.0-16.0); LYMPHOCYTES # (AUTO) 1.2 10^3/uL (1.5-3.5); LYMPHOCYTES % (AUTO) 16.7 %; MEAN CORPUSCULAR HEMOGLOBIN 31.4 pg (27.0-31.0); MEAN CORPUSCULAR HGB CONC 32.2 g/dL (32.0-36.0); MEAN CORPUSCULAR VOLUME 97.5 fL (81.0-99.0); MEAN PLATELET VOLUME 10.2 fL (7.9-10.8); MONOCYTES # (AUTO) 0.5 10^3/uL (0.0-1.0); NEUTROPHILS # (AUTO) 5.3 10^3/uL (1.5-6.6); NEUTROPHILS % (AUTO) 73.2 %; PLT - PLATELET COUNT 139 10^3/uL (130-450); RED CELL DISTRIBUTION WIDTH 16.2 % (12.0-15.0); WHITE BLOOD COUNT 7.3 x10^3/uL (4.8-10.8)
[2023-06-24] MEDS: CHOLECALCIFEROL 25 MCG TABLET PO SCH (08:38)
[2023-06-24] MEDS: ACETAMINOPHEN 325 MG TABLET PO PRN (08:38)
[2023-06-24] MEDS: FAMOTIDINE 20 MG TABLET PO SCH (08:38)
[2023-06-24] MEDS: polyethylene glycoL 3350 17 GM PACKET PO SCH (08:38)
[2023-06-24 08:49] VITALS: BP 152/70
[2023-06-24 08:51] LABS: CALCIUM 9.2 mg/dL (8.5-10.3); CREATININE 0.6 mg/dL (0.6-1.3); POTASSIUM 3.8 mmol/L (3.5-4.5)
--- NOTE | 2023-06-24 08:56 | Discharge Plan ---
"Discharge Plan for SNF / [facility] - Discharge Plan And Transition Orders Problem Reviewed?: Yes Disposition: 03 SNF DC/Xfer Condition: Stable Allergies and Adverse Reactions: Allergies Allergy/AdvReac Type Severity Reaction Status Date / Time gabapentin Allergy Unknown Verified 06/19/23 15:01 hydrocodone [From Vicodin] Allergy Rash Verified 06/19/23 15:01 nitrofurantoin Allergy Hives Verified 06/19/23 15:01 [From Macrobid] oxycodone [From Percocet] Allergy Unknown Verified 06/19/23 15:01 Sulfa (Sulfonamide Allergy Hives Verified 06/19/23 15:01 Antibiotics) Health Concerns: She is a 87-year-old female who still lives at home. Her some lives very close by and helps her on a daily basis. She had a mechanical fall and has suffered a pelvic fracture. She was felt stable enough to stay at a critical access hospital. Orthopedics was consulted. During her stay she did have 1 episode of severe hypotension when she tried to stand. We evaluated her for pelvic bleeding. Hemoglobin was 12.5 on admission and 11.[address] A repeat CT scan was done and it did show a slightly enlarging extraperitoneal soft tissue hematoma anterior and lateral to the bladder. It was 3.4 x 8.5 x 8.2 cm. It does compress on the bladder on the left. But no active bleeding. Orthopedics was reconsulted and they felt that the patient did not need any other intervention other than expectant management and observation. We now feel she is stable to continue to nursing home facility for rehab. Plan of Treatment: She will undergo physical therapy and Occupational Therapy until she is independent enough to return to her son's house. She plans on living with them for a few weeks if not a few months. When she is stable she plans on returning to her own home. Care Goals: Eventually she would like to return to independent living in her own home Assessment: Patient is alert, oriented to person place and situation. Her main fear is that she will not be able to recover from this and go back home. Tearful when she discusses this. But she promises to work hard with physical therapy to be able to get herself back on her feet. - SNF / SENIOR CARE Transition Orders Admit to (Facility): [facility] Under the care of (Name): [facility] physician Discharge Diagnosis: 1. Inferior pubic ramus fracture 2. Mechanical fall at home 3. Sudden orthostatic hypotension 4. GERD 5. Hyperlipidemia 6. Hypertension 7. Hypothyroidism 8. Chronic atrial fibrillation with RVR Medicare Certification Statement: I certify that [facility] care is medically necessary on a continuing basis for any of the conditions for which she/he is receiving care during hospitalization. Notify PCP of admission and forward orders to primary provider for signature. Weight on admission and: Monthly Other Notification Orders: Call PCP immediately if patient develops dyspnea, chest pain/tightness or edema. House Bowel Program: Yes Additional Bowel Program Orders: If no BM after 2 days, nurse may give M.O.M. 30ml PO PRN and/or ducolax Supp 1 [place] and/or MELISSA 250mg P.O., and/or senna 1-2 tabs PO. On day 3 nurse may give repeat above order until residents constipation is resolved. Annual Influenza Vaccine (between Jun 26 and January 23): Yes Two-step PPD per [facility] [phone] or approved exception documents: Yes Treatments & Other Orders: Our main concern is that she is going to develop a UTI, atelectasis with pneumonia, or a DVT. Please strongly encourage her to make sure she gets out of bed. Use NENO hose for DVT prophylaxis since she cannot be on DOAC and I do not recommend aspirin. Medication Orders: PLEASE REFER TO THE DISCHARGE MEDICATION LIST. - Medications New Prescriptions: Morphine Oral Soln [Roxanol] 10 mg PO Q4H PRN #30 ml PRN Reason: Severe Pain (Level 7-10) - Diet Type: Geriatric Texture: Regular Liquids: Thin May have monthly special meal: Yes - Therapies | Activity Therapy: Evaluation | Treat if indicated: PT Rehabilitation Potential: Return to independent living Activity: Wt Bearing as Tolerated Weight Bearing: Partial Weight Assistance Devices: Wheelchair, Walker Additional Instructions: . Follow Up: Please follow-up with primary care provider KENDELL Cotton when she is discharged"
--- NOTE | 2023-06-24 09:24 | DISCHARGE SUMMARY ---
Discharge Summary Admit Date: 06/19/23 Discharge Date: 06/24/23 Discharging Provider: Zelda Ludwig MD Primary Care Provider: KENDELL Cotton [facility] Code Status: Attempt Resuscitation Condition at Discharge: Stable Discharge Disposition: 03 SNF DC/Xfer - DIAGNOSES Discharge Diagnoses with Status of Each Condition: 1. Inferior pubic ramus fracture 2. Mechanical fall at home 3. Sudden orthostatic hypotension 4. GERD 5. Hyperlipidemia 6. Hypertension 7. Hypothyroidism 8. Chronic atrial fibrillation with RVR - HPI History of Present Illness: 87 y old female with PMH HTN, HLP, hypothyroidism brought in by EMS after ground level fall.As per pt, she tripped and fell.Denies LOC. C/O pain in pelvis. 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 Her some lives very close by and helps her on a daily basis. She had a mechanical fall and has suffered a pelvic fracture. She was felt stable enough to stay at a critical access hospital. Orthopedics was consulted. During her stay she did have 1 episode of severe hypotension when she tried to stand. We evaluated her for pelvic bleeding. Hemoglobin was 12.5 on admission and 11.3 at [address] A repeat CT scan was done and it did show a slightly enlarging extraperitoneal soft tissue hematoma anterior and lateral to the bladder. It was 3.4 x 8.5 x 8.2 cm. It does compress on the bladder on the left. But no active bleeding. Orthopedics was reconsulted and they felt that the patient did not need any other intervention other than expectant management and observation. We now feel she is stable to continue to assisted facility for rehab. 1 issue that was addressed during her stay was that of chronic atrial fibrillation. She is not anticoagulated which in retrospect is a very good thing considering her pelvic hematoma. Rate control was being achieved with atenolol. Hospitalist during her stay felt atenolol was not appropriate for an 87-year-old female. Blood pressure would get occasionally very soft with other beta-blockers. As such she was started on digoxin for rate control. At discharge her rate is 72. Plan of Treatment: She will undergo physical therapy and Occupational Therapy until she is independent enough to return to her son's house. She plans on living with them for a few weeks if not a few months. When she is stable she plans on returning to her own home. Care Goals: Eventually she would like to return to independent living in her own home Assessment: Patient is alert, oriented to person place and situation. Her main fear is that she will not be able to recover from this and go back home. Tearful when she discusses this. But she promises to work hard with physical therapy to be able to get herself back on her feet. - ALLERGIES Allergies/Adverse Reactions: Allergies Allergy/AdvReac Type Severity Reaction Status Date / Time gabapentin Allergy Unknown Verified 06/19/23 15:01 hydrocodone [From Vicodin] Allergy Rash Verified 06/19/23 15:01 nitrofurantoin Allergy Hives Verified 06/19/23 15:01 [From Macrobid] oxycodone [From Percocet] Allergy Unknown Verified 06/19/23 15:01 Sulfa (Sulfonamide Allergy Hives Verified 06/19/23 15:01 Antibiotics) - MEDICATIONS Home Medications: Ambulatory Orders Medication Instructions Recorded Confirmed Albuterol Sulfate [Proair Hfa 1 - 2 puffs IH Q4HR PRN 07/20/20 06/20/23 Inhaler] Levothyroxine Sodium [Synthroid] 112 mcg ORAL DAILY 07/20/20 06/20/23 Simvastatin 20 mg PO DAILY PM 07/20/20 06/20/23 amLODIPine [Norvasc] 5 mg PO DAILY 07/20/20 06/20/23 buPROPion [Wellbutrin Sr] 100 mg PO DAILY 07/20/20 06/20/23 Juan/D3/Mag11/Zinc/Construction Management Instructor/Charlie/Bor 1 tab ORAL BID 04/21/23 06/20/23 [Caltrate 600+D Plus Tablet] Cholecalciferol [Vitamin D3] 25 mcg PO DAILY 04/21/23 06/20/23 Lactobacillus Combination No.4 2 each PO BID 04/21/23 06/20/23 [Probiotic] Melatonin 5 mg PO BID 04/21/23 06/20/23 Multivitamin/Iron/Folic Acid 1 each PO DAILY 04/21/23 06/20/23 [Centrum Women Tablet] [place]-3/Dha/Epa/Fish Oil [Fish Oil 1,200 mg PO DAILY 04/21/23 06/20/23 1,200 mg Softgel] Omeprazole Magnesium 20 mg PO BID 04/21/23 06/20/23 Vit A/Vit C/Vit E/Zinc/Copper 1 each PO BID 04/21/23 06/20/23 [Preservision Areds Softgel] Cyanocobalamin (Vitamin B-12) 400 units PO DAILY 06/20/23 06/20/23 [Vitamin B-12 (1000 mcg sublingual)] Tocopheryl [Vitamin E] 400 unit PO DAILY 06/20/23 06/20/23 glucosamine HCL [Glucosamine HCl] 2,000 mg PO DAILY 06/20/23 06/20/23 Acetaminophen [Tylenol] 650 mg PO TID tab 06/24/23 Digoxin [Lanoxin] 125 mcg PO DAILY tab 06/24/23 Famotidine [Pepcid] 20 mg PO BID tab 06/24/23 Ibuprofen [Motrin] 400 mg PO Q6HR PRN tab 06/24/23 Morphine Oral Soln [Roxanol] 10 mg PO Q4H PRN #30 ml 06/24/23 - LABS Result Diagrams: 06/24/23 07:56 06/24/23 07:56
[2023-06-24] MEDS: CALCIUM CARBONATE CHEW 500 MG TABLET PO SCH (12:31)
[2023-06-25] MEDS ORDERED: DIGOXIN 125 MCG TABLET PO SCH (09:00)
== END 2023-06-24 13:15 | DRG 536 ==
LOC: EDUNIT# → ED 14:50 → MS2 22:49
PROVIDERS: ADMIT Internal Medicine; ATTEND Specialist
DX: S32.89XA Fracture of other parts of pelvis, initial encounter for closed fracture (principal); S40.011A Contusion of right shoulder, initial encounter; S05.11XA Contusion of eyeball and orbital tissues, right eye, initial encounter; S32.591A Other specified fracture of right pubis, initial encounter for closed fracture; I48.20 Chronic atrial fibrillation, unspecified; W01.0XXA Fall on same level from slipping, tripping and stumbling without subsequent striking against object, initial encounter; I95.1 Orthostatic hypotension; K21.9 Gastro-esophageal reflux disease without esophagitis; I10 Essential (primary) hypertension; E03.9 Hypothyroidism, unspecified; M19.90 Unspecified osteoarthritis, unspecified site; E78.5 Hyperlipidemia, unspecified; Z79.890 Hormone replacement therapy; Z79.899 Other long term (current) drug therapy
CPT/HCPCS: 36415; 51701; 70450; 70486; 72170; 72193; 73030; 73060; 73700; 80048; 80053; 81003; 83690; 85025; 85610; 93005; 96374; 96376; 97116; 97162; 97166; 97530; 97535; 99285; A9270; J1170; 81001; 87086

== ENCOUNTER 2024-01-20 06:44 | Outpatient (CLI) | payer MEDICARE, OTHER | END 2024-01-20 23:59 | disposition EMS.NT | LOC: EMS 06:44 | DX: R06.02 Shortness of breath (principal); R45.89 Other symptoms and signs involving emotional state; I48.91 Unspecified atrial fibrillation ==

== ENCOUNTER 2024-01-20 07:28 | Emergency (ER) | payer MEDICARE, OTHER ==
[2024-01-20 07:44] VITALS: O2SAT 96
--- NOTE | 2024-01-20 07:56 | ED Physician Documentation ---
PD HPI CHEST PAIN - Stated complaint Stated Complaint: SOA - Chief complaint Chief Complaint: Resp - History obtained from History obtained from: Patient, Family - Additional information Additional information: The patient comes to the emergency department chief complaint of dyspnea and chest pain. She states she has had dyspnea for months and actually awakened her from sleep around 2:00 this morning. She states she woke with the start and took a big breath. Then she noticed that she was having some burning discomfort in her lower substernal chest area. She states it did not radiate anywhere else. She denies diaphoresis or nausea. Patient has had discomfort like this before but this concerned her. Her son states she has a hiatal hernia and has been told that this can sometimes cause the symptoms. The patient also has a history of anxiety and does get anxiety attacks. No history of coronary artery disease the patient knows of. No history of congestive heart failure. She did have an a ablation in 1997 but does not recall a specific diagnosis of atrial fibrillation. The patient feels that she has generally gone downhill since falling and sustaining a pelvic fracture last May. She does currently live at home by herself and states that she can normally care for herself without difficulty, but she does notice that when she walks from room to room, she gets short of breath. She has had a mild amount of edema in her lower extremities recently. No other complaints at this time. No palpitations or feeling of heart racing. 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 : None, Chronic bladder infection, Other HEENT: None Psych: None Musculoskeletal: Osteoarthritis Derm: None Other Past Medical History: Hiatal hernia - Past Surgical History Past Surgical History: No General: Cholecystectomy, Appendectomy Ortho: Knee replacement Cardiovascular: Other HEENT: Cataracts - Present Medications Home Medications: Ambulatory Orders Medication Instructions Recorded Confirmed Albuterol Sulfate [Proair Hfa 1 - 2 puffs IH Q4HR PRN 07/20/20 01/20/24 Inhaler] Levothyroxine Sodium [Synthroid] 112 mcg ORAL DAILY 07/20/20 01/20/24 Simvastatin 20 mg PO DAILY PM 07/20/20 01/20/24 amLODIPine [Norvasc] 5 mg PO DAILY 07/20/20 01/20/24 buPROPion [Wellbutrin Sr] 100 mg PO DAILY 07/20/20 01/20/24 Juan/D3/Mag11/Zinc/Radiology Tech/Charlie/Bor 1 tab ORAL BID 04/21/23 01/20/24 [Caltrate 600+D Plus Tablet] Cholecalciferol [Vitamin D3] 25 mcg PO DAILY 04/21/23 01/20/24 Lactobacillus Combination No.4 2 each PO BID 04/21/23 01/20/24 [Probiotic] Melatonin 5 mg PO BID 04/21/23 01/20/24 Multivitamin/Iron/Folic Acid 1 each PO DAILY 04/21/23 01/20/24 [Centrum Women Tablet] [place]-3/Dha/Epa/Fish Oil [Fish Oil 1,200 mg PO DAILY 04/21/23 01/20/24 1,200 mg Softgel] Omeprazole Magnesium 20 mg PO BID 04/21/23 01/20/24 Vit A/Vit C/Vit E/Zinc/Copper 1 each PO BID 04/21/23 01/20/24 [Preservision Areds Softgel] Cyanocobalamin (Vitamin B-12) 400 units PO DAILY 06/20/23 01/20/24 [Vitamin B-12 (1000 mcg sublingual)] Tocopheryl [Vitamin E] 400 unit PO DAILY 06/20/23 01/20/24 glucosamine HCL [Glucosamine HCl] 2,000 mg PO DAILY 06/20/23 01/20/24 Acetaminophen [Tylenol] 650 mg PO TID tab 06/24/23 01/20/24 Famotidine [Pepcid] 20 mg PO BID tab 06/24/23 01/20/24 Ibuprofen [Motrin] 400 mg PO Q6HR PRN tab 06/24/23 01/20/24 Morphine Oral Soln [Roxanol] 10 mg PO Q4H PRN #30 ml 06/24/23 01/20/24 Apixaban [Eliquis] 5 mg PO BID #60 tab 01/20/24 Aspirin [Aspirin Regimen] 1 tab PO DAILY 01/20/24 01/20/24 Biotin 1 cap PO DAILY 01/20/24 01/20/24 Metoprolol Succinate [Toprol Xl] 1 tab PO DAILY 01/20/24 01/20/24 - Allergies Allergies/Adverse Reactions: Allergies Allergy/AdvReac Type Severity Reaction Status Date / Time gabapentin Allergy Unknown Verified 01/20/24 07:53 hydrocodone [From Vicodin] Allergy Rash Verified 01/20/24 07:53 nitrofurantoin Allergy Hives Verified 01/20/24 07:53 [From Macrobid] oxycodone [From Percocet] Allergy Unknown Verified 01/20/24 07:53 Sulfa (Sulfonamide Allergy Hives Verified 01/20/24 07:53 Antibiotics) - Social History Does the pt smoke?: No Smoking Status: Never smoker Does the pt drink ETOH?: No Does the pt have substance abuse?: No - Immunizations Immunizations are current?: Yes - POLST Patient has POLST: Yes PD ED PE NORMAL - Vitals Vital signs reviewed: Yes - General General: No acute distress, Well developed/nourished, Other (Alert and grossly oriented.) - HEENT HEENT: Atraumatic, PERRL, EOMI, Moist mucous membranes - Neck Neck: Supple, no meningeal sign - Cardiac Cardiac: No murmur, Other (Irregularly irregular heart rhythm, normal rate) - Respiratory Respiratory: No respiratory distress, Clear bilaterally - Abdomen Abdomen: Soft, Non tender, Non distended - Derm Derm: Normal color, Warm and dry, No rash - Extremities Extremities: No deformity, Other (Trace pitting edema bilateral lower extremities distally.) - Neuro Neuro: Alert and oriented X 3 - Psych Psych: Normal mood, Normal affect Results - Vitals Vitals: Vital Signs - 24 hr 01/20/24 01/20/24 11:00 12:17 Heart Rate 98 88 Respiratory 16 16 Rate Blood Pressure 152/86 H 155/90 H O2 Saturation 98 96 Oxygen O2 Source [With Activity] Room air O2 Source Room air - Labs Labs: Laboratory Tests 01/20/24 01/20/24 01/20/24 08:10 08:10 08:10 WBC 4.1 L RBC 4.14 L Hgb 12.6 Hct 40.2 MCV 97.1 MCH 30.4 MCHC 31.3 L RDW 17.2 H Plt Count 132 MPV 10.3 Neut # (Auto) 2.2 Lymph # (Auto) 1.4 L [place] # (Auto) 0.5 Eos # (Auto) 0.1 Baso # (Auto) 0.0 Absolute Nucleated RBC 0.00 Nucleated RBC % 0.0 Sodium 139 Potassium 3.7 Chloride 105 Carbon Dioxide 28 Anion Gap 6.0 BUN 15 Creatinine 0.7 Estimated GFR (MDRD) 79 L Glucose 98 Calcium 9.7 Total Bilirubin 1.2 H AST 28 ALT 20 Alkaline Phosphatase 86 Troponin I High Sens 17.6 H* B-Natriuretic Peptide 430 H Total Protein 6.4 Albumin 3.8 Globulin 2.6 Albumin/Globulin Ratio 1.5 Lipase 13 01/20/24 10:08 WBC RBC Hgb Hct MCV MCH MCHC RDW Plt Count MPV Neut # (Auto) Lymph # (Auto) [place] # (Auto) Eos # (Auto) Baso # (Auto) Absolute Nucleated RBC Nucleated RBC % Sodium Potassium Chloride Carbon Dioxide Anion Gap BUN Creatinine Estimated GFR (MDRD) Glucose Calcium Total Bilirubin AST ALT Alkaline Phosphatase Troponin I High Sens 17.8 H* B-Natriuretic Peptide Total Protein Albumin Globulin Albumin/Globulin Ratio Lipase PD Medical Decision Making - ED course Complexity details: reviewed results, re-evaluated patient, considered differential, d/w patient, d/w family ED course: The patient was fairly well-appearing in the emergency department though slightly anxious. She was worked up with labs including ER abdominal panel, CBC, troponin, and BNP. She was also worked up with chest x-ray and EKG. The patient had already chewed 4 baby aspirin prior to coming to the ED. Her EKG showed her to be in rate controlled atrial fibrillation and monitor rhythm supported this finding as well. Pt was feeling much better after fluids. Her troponins were stable over 2 measurements, and CXR showed stable CHF without pulmonary edema. BNP was 400. I d/w pt and son that she should consider anticoagulation for the a. fib for stroke prevention. The pt is not sure she wants to do this at this time. I have encouraged her to f/u with her PCP to discuss this further. We have discussed the usual indications for return. Departure - Departure Disposition: 01 Home, Self Care Clinical Impression: Chest pain Qualifiers: Chest pain type: unspecified Qualified Code(s): R07.9 - Chest pain, unspecified Congestive heart failure Qualifiers: Heart failure type: unspecified Heart failure chronicity: chronic Qualified Code(s): I50.9 - Heart failure, unspecified Dyspnea Qualifiers: Dyspnea type: unspecified Qualified Code(s): R06.00 - Dyspnea, unspecified Atrial fibrillation Qualifiers: Atrial fibrillation type: unspecified Qualified Code(s): I48.91 - Unspecified atrial fibrillation Condition: Stable Instructions: ED Afib, ED CHF General, ED Chest Pain Atypical Unkn Cause, ED Dyspnea Shortness of Breath Prescriptions: Apixaban [Eliquis] 5 mg PO BID #60 tab Comments: There is no evidence of a heart attack today. You have some mild congestive heart failure which means that your heart is not pumping blood forward quite as efficiently as would be ideal. However, you are not building up any fluid in your lungs, so this is good. You were found to have atrial fibrillation, a common rhythm abnormality that can occur in later years. With your prior ablation, it sounds as though this may have been an issue previously but it is h kristine to say. It is not clear how long you have been in A-fib, though I suspect it has been a while, since you do not have any specific symptoms with regard to this. It would be good for you to follow-up with your primary doctor to discuss whether you should have further testing, such as echocardiogram, and whether you should see a health consultant again and be on a blood thinner for the shelter. For now, we will give you a prescription for a blood thinner and you can decide whether you want to take this or not. This prescription has been electronically transmitted to the [facility], your pharmacy of choice on record. Please make the next available appointment with your doctor. Forms: PCP List Discharge Date/Time: 01/20/24 12:17
[2024-01-20 08:25] LABS: EOSINOPHILS # (AUTO) 0.1 10^3/uL (0.0-0.7); EOSINOPHILS % (AUTO) 2.2 %; HCT - HEMATOCRIT 40.2 % (37.0-47.0); HGB - HEMOGLOBIN 12.6 g/dL (12.0-16.0); LYMPHOCYTES # (AUTO) 1.4 10^3/uL (1.5-3.5); LYMPHOCYTES % (AUTO) 32.6 %; MEAN CORPUSCULAR HEMOGLOBIN 30.4 pg (27.0-31.0); MEAN CORPUSCULAR HGB CONC 31.3 g/dL (32.0-36.0); MEAN CORPUSCULAR VOLUME 97.1 fL (81.0-99.0); MEAN PLATELET VOLUME 10.3 fL (7.9-10.8); MONOCYTES # (AUTO) 0.5 10^3/uL (0.0-1.0); MONOCYTES % (AUTO) 10.9 %; NEUTROPHILS # (AUTO) 2.2 10^3/uL (1.5-6.6); NEUTROPHILS % (AUTO) 53.1 %; PLT - PLATELET COUNT 132 10^3/uL (130-450); RED BLOOD COUNT 4.14 10^6/uL (4.20-5.40); RED CELL DISTRIBUTION WIDTH 17.2 % (12.0-15.0); WHITE BLOOD COUNT 4.1 x10^3/uL (4.8-10.8)
--- NOTE | 2024-01-20 08:28 | XRAY Report ---
PROCEDURE: Chest 1V INDICATIONS: Chest pain TECHNIQUE: One view of the chest was acquired. COMPARISON: 04/21/2023. FINDINGS: Surgical changes and devices: None. Lungs and pleura: Moderate right pleural effusion, mild left pleural effusion, bibasilar atelectasis . Mediastinum: Mediastinal contours appear normal. Cardiomegaly. Bones and chest wall: No suspicious bony lesions. Overlying soft tissues appear unremarkable. IMPRESSION: Compensated congestive heart failure. No pulmonary edema. Pleural effusions and bibasilar atelectasis . Reviewed by: Dewayne Michael MD on 01/20/2024 8:26 AM PDT Approved by: Dewayne Michael MD on 01/20/2024 8:26 AM PDT Station ID: [id number]
[2024-01-20 08:39] LABS: ALBUMIN 3.8 g/dL (3.2-5.5); ALBUMIN/GLOBULIN RATIO 1.5 (1.0-2.2); BILIRUBIN,TOTAL 1.2 mg/dL (0.2-1.0); CALCIUM 9.7 mg/dL (8.5-10.3); CREATININE 0.7 mg/dL (0.6-1.3); POTASSIUM 3.7 mmol/L (3.5-4.5); TOTAL PROTEIN 6.4 g/dL (6.4-8.9)
[2024-01-20 08:42] LABS: TROPONIN I HIGH SENSITIVITY 17.6 ng/L (2.3-14.8)
[2024-01-20 12:26] VITALS: BP 155/90
== END 2024-01-20 12:17 | disposition home or self-care (01) ==
LOC: ED 07:28
DX: I11.0 Hypertensive heart disease with heart failure (principal); I50.9 Heart failure, unspecified; I48.91 Unspecified atrial fibrillation; R07.9 Chest pain, unspecified; R06.00 Dyspnea, unspecified; E78.00 Pure hypercholesterolemia, unspecified; E03.9 Hypothyroidism, unspecified; Z79.899 Other long term (current) drug therapy; Z79.01 Long term (current) use of anticoagulants; Z79.82 Long term (current) use of aspirin
CPT/HCPCS: 36415; 80053; 83690; 83880; 84484; 85025; 93005; 99284

== ENCOUNTER 2024-03-02 14:07 | Outpatient (CLI) | payer MEDICARE, OTHER | END 2024-03-02 23:59 | disposition critical access hospital (66) | LOC: EMS 14:07 | DX: S01.01XA Laceration without foreign body of scalp, initial encounter (principal); W01.0XXA Fall on same level from slipping, tripping and stumbling without subsequent striking against object, initial encounter; Y92.000 Kitchen of unspecified non-institutional (private) residence as the place of occurrence of the external cause | CPT/HCPCS: A0425; A0429 ==

== ENCOUNTER 2024-03-02 14:26 | Emergency (ER) | payer MEDICARE, OTHER ==
--- NOTE | 2024-03-02 14:43 | ED Physician Documentation ---
PD HPI Fall - Stated complaint Stated Complaint: GLF - Chief complaint Chief Complaint: Trauma Hd/Nk - History obtained from History obtained from: Patient, EMS - History of Present Illness Mechanism of injury: Slipped (fell backwards and hit the back of her head) Fall distance: Standing position Where injury occurred: Home Injury(ies) location: Head, Face, Neck, Left Lower Extremity (L hip) Pain level max: 6 Pain level now: 6 Quality of pain: Pain, Aching, Dull Associated symptoms: No: LOC, AMS, Amnesia, Seizures, Ear drainage, Nasal drainage, Neck pain, Weakness, Paresthesias, Dyspnea, Nausea / vomiting, Hematemesis, Abdominal distension Worsens with: Movement Contributing factors: No: Anticoagulated, Intoxicated Recently seen: Not recently seen Review of Systems Constitutional: denies: Fever, Chills GI: denies: Nausea, Vomiting Neurologic: denies: Headache, Head injury PD PAST MEDICAL HISTORY - Past Medical History Past Medical History: Yes Cardiovascular: High cholesterol, Hypertension Respiratory: Shortness of breath, Other Neuro: None Endocrine/Autoimmune: HyPOthyroidism GI: GERD 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 : None, Chronic bladder infection, Other HEENT: None Psych: None Musculoskeletal: Osteoarthritis Derm: None - Past Surgical History Past Surgical History: No General: Cholecystectomy, Appendectomy Ortho: Knee replacement Cardiovascular: Other HEENT: Cataracts - Present Medications Home Medications: Ambulatory Orders Medication Instructions Recorded Confirmed Albuterol Sulfate [Proair Hfa 1 - 2 puffs IH Q4HR PRN 07/20/20 03/02/24 Inhaler] Levothyroxine Sodium [Synthroid] 112 mcg ORAL DAILY 07/20/20 03/02/24 Simvastatin 20 mg PO DAILY PM 07/20/20 03/02/24 amLODIPine [Norvasc] 5 mg PO DAILY 07/20/20 03/02/24 buPROPion [Wellbutrin Sr] 100 mg PO DAILY 07/20/20 03/02/24 Juan/D3/Mag11/Zinc/Occupational Health Professional/Charlie/Bor 1 tab ORAL BID 04/21/23 03/02/24 [Caltrate 600+D Plus Tablet] Cholecalciferol [Vitamin D3] 25 mcg PO DAILY 04/21/23 03/02/24 Lactobacillus Combination No.4 2 each PO BID 04/21/23 03/02/24 [Probiotic] Melatonin 5 mg PO BID 04/21/23 03/02/24 Multivitamin/Iron/Folic Acid 1 each PO DAILY 04/21/23 03/02/24 [Centrum Women Tablet] [place]-3/Dha/Epa/Fish Oil [Fish Oil 1,200 mg PO DAILY 04/21/23 03/02/24 1,200 mg Softgel] Omeprazole Magnesium 20 mg PO BID 04/21/23 03/02/24 Vit A/Vit C/Vit E/Zinc/Copper 1 each PO BID 04/21/23 03/02/24 [Preservision Areds Softgel] Cyanocobalamin (Vitamin B-12) 400 units PO DAILY 06/20/23 03/02/24 [Vitamin B-12 (1000 mcg sublingual)] Tocopheryl [Vitamin E] 400 unit PO DAILY 06/20/23 03/02/24 glucosamine HCL [Glucosamine HCl] 2,000 mg PO DAILY 06/20/23 03/02/24 Acetaminophen [Tylenol] 650 mg PO TID tab 06/24/23 03/02/24 Famotidine [Pepcid] 20 mg PO BID tab 06/24/23 03/02/24 Ibuprofen [Motrin] 400 mg PO Q6HR PRN tab 06/24/23 03/02/24 Aspirin [Aspirin Regimen] 1 tab PO DAILY 01/20/24 03/02/24 Biotin 1 cap PO DAILY 01/20/24 03/02/24 - Allergies Allergies/Adverse Reactions: Allergies Allergy/AdvReac Type Severity Reaction Status Date / Time gabapentin Allergy Unknown Verified 03/02/24 14:59 hydrocodone [From Vicodin] Allergy Rash Verified 03/02/24 14:59 nitrofurantoin Allergy Hives Verified 03/02/24 14:59 [From Macrobid] oxycodone [From Percocet] Allergy Unknown Verified 03/02/24 14:59 Sulfa (Sulfonamide Allergy Hives Verified 03/02/24 14:59 Antibiotics) - Social History Does the pt smoke?: No Smoking Status: Never smoker Does the pt drink ETOH?: No Does the pt have substance abuse?: No - Immunizations Immunizations are current?: Yes - POLST Patient has POLST: Yes PD ED PE NORMAL - Vitals Vital signs reviewed: Yes - General General: Alert and oriented X 3, No acute distress - HEENT HEENT: Atraumatic (laceration to the occiput), Moist mucous membranes, Other (L periorbital contusion/abrasion.) - Neck Neck: Supple, no meningeal sign, No bony TTP - Cardiac Cardiac: RRR, Strong equal pulses - Respiratory Respiratory: No respiratory distress, Clear bilaterally - Abdomen Abdomen: Soft, Non tender, Non distended - Back Back: No spinal TTP - Derm Derm: Warm and dry - Extremities Extremities: Other (Limited ROM 2/2 pain of the L hip. no external rotation or shortening. Pain with flexion/extension. No pain with int/ext rotation. ) - Neuro Neuro: Alert and oriented X 3 - Psych Psych: Normal mood, Normal affect Results - Vitals Vitals: Vital Signs - 24 hr 03/02/24 03/02/24 03/02/24 14:33 15:00 16:00 Temperature 36.3 C L Heart Rate 83 88 91 Respiratory 18 17 15 Rate Blood Pressure 157/112 H 170/102 H 165/114 H O2 Saturation 98 96 95 03/02/24 03/02/24 03/02/24 16:30 16:39 17:00 Temperature Heart Rate 84 74 92 Respiratory 16 17 15 Rate Blood Pressure 158/117 H 174/114 H 171/114 H O2 Saturation 95 98 94 03/02/24 03/02/24 17:30 18:04 Temperature 37 C Heart Rate 89 93 Respiratory 17 17 Rate Blood Pressure 158/119 H 158/119 H O2 Saturation 97 97 Oxygen O2 Source [] Room air O2 Source Room air - Labs Labs: Laboratory Tests 03/02/24 16:59 Urine Color YELLOW Urine Clarity CLEAR Urine pH 7.5 Ur Specific [place] 1.010 Urine Protein NEGATIVE Urine Glucose (UA) NEGATIVE Urine Ketones NEGATIVE Urine Occult Blood NEGATIVE Urine Nitrite NEGATIVE Urine Bilirubin NEGATIVE Urine Urobilinogen 0.2 (NORMAL) Ur Leukocyte Esterase NEGATIVE Ur Microscopic Review NOT INDICATED Urine Culture Comments NOT INDICATED - Rads (name of study) L hip xray Relevant Findings:: Final report received, See rad report head CT Relevant Findings:: Final report received, See rad report maxillofacial CT Relevant Findings:: Final report received, See rad report cervical spine CT Relevant Findings:: Final report received, See rad report PD Medical Decision Making - ED course Complexity details: reviewed results, re-evaluated patient, considered differential, d/w patient, d/w family, d/w recruitment consultant ED course: Abrasions were cleansed and bandaged on the posterior scalp. No laceration repair. She has a pubic ramus fracture on x-ray of the left hip. A CT was performed to better evaluate this. Confirms the pubic ramus fracture. She has had a prior pubic ramus fracture on the right side. She states she does not want to go back to a rehab or assisted facility. Family states that the patient has been considering hospice. Offered to place a hospice referral for them. They state that this will be done with her primary care provider. She declines any pain medication for home. She states that with her last fracture she only use Tylenol because she does not like narcotics. Family is comfortable taking her home and they can stay with her or she can stay with them. We will have her follow-up with orthopedics as an outpatient and follow-up closely with her doctor for hospice referral. The patient does have a small hematoma next to the fracture on CT scan. There is a question of potential bladder injury. Discussed the case with Dr. Le, urology. Patient is urinating clear yellow urine. There is also question of a dilated urethra. Unclear what the clinical significance of this is. She denies any recent instrumentation. Likely that the hematoma is just from the fracture rather than a bladder injury. Patient and family counseled regarding signs and symptoms for which I believe and urgent re-evaluation would be necessary. Patient with good understanding of and agreement to plan and is comfortable going home at this time This document was made in part using voice recognition software. While efforts are made to proofread this document, sound alike and grammatical errors may occur. Departure - Departure Disposition: 01 Home, Self Care Clinical Impression: Pubic ramus fracture Qualifiers: Encounter type: initial encounter Fracture type: closed Laterality: left Qualified Code(s): S32.592A - Other specified fracture of left pubis, initial encounter for closed fracture Scalp abrasion Qualifiers: Encounter type: initial encounter Qualified Code(s): S00.01XA - Abrasion of scalp, initial encounter Condition: Good Instructions: ED Head Injury Closed, ED Fx Pelvis Follow-Up: your,doctor tomorrow [Other] Comments: Please follow-up with your doctor for further care. As we discussed you do have a pubic ramus fracture. You have indicated you did not want any pain medication for home and did not want to go to any sort of rehab or nursing facility. You have talk to your doctor about going on hospice, please follow-up with them tomorrow regarding this. Forms: PCP List Discharge Date/Time: 03/02/24 18:06
--- NOTE | 2024-03-02 15:26 | XRAY Report ---
PROCEDURE: Hip w/Pelvis 2-3V LT INDICATIONS: fall, L hip pain TECHNIQUE: 2 views of the hip were acquired. COMPARISON: CT 06/23/2023 FINDINGS: Bones: Mildly displaced fracture of the left superior pubic ring. Soft tissues: No suspicious soft tissue calcifications or masses. IMPRESSION: Mildly displaced fracture of the left superior pubic ring. Second ring fracture not identified. Consi alberto CT for further evaluation. Reviewed by: Arturo Vital MD on 03/02/2024 3:25 PM PDT Approved by: Arturo Vital MD on 03/02/2024 3:25 PM PDT Station ID: [id number]
--- NOTE | 2024-03-02 16:04 | CT Report ---
PROCEDURE: Cervical Spine WO INDICATIONS: fall, neck pain TECHNIQUE: Noncontrast 3 mm thick sections acquired from the skull base to the T4 level. Sagittal and coronal r eformats were then constructed. For radiation dose reduction, the following was used: automated exp osure control, adjustment of mA and/or kV according to patient size. COMPARISON: Correlation is made with the accompanying imaging. FINDINGS: Image quality: Excellent. Bones: No fractures or dislocations. Visualized superior ribs are intact. Note is made of hypertrophy of the right occipital condyle, as on series 10 image 34. There is mode rate severe disc space narrowing seen at C3-C4 and C4-C5, with at least moderate disc space narrowing seen at C5-C6 and at C6-C7. There is partial fusion seen at several levels. Posterior directed endpl ate osteophytes are seen, which are worst at the C6-C7 level. Numerous levels of significance hypertr ophy can be seen, right worse than left. Soft tissues: Prevertebral soft tissues are normal in thickness. No paravertebral hematomas. No ap ical pneumothoraces. Atherosclerotic calcification is seen. A moderate right-sided pleural effusion is partially seen. IMPRESSION: Negative for acute fracture. Multiple levels of significant cervical spine degenerative change can be seen. There is partial visualization of a moderate right-sided pleural effusion. Reviewed by: Fede Zarate MD on 03/02/2024 3:03 PM GOLDIE Approved by: Fede Zarate MD on 03/02/2024 3:03 PM GOLDIE Station ID: [id number]
--- NOTE | 2024-03-02 16:06 | CT Report ---
PROCEDURE: Maxillofacial WO INDICATIONS: fall, L periorbital pain TECHNIQUE: Noncontrast 1.5 mm thick axial images acquired from the mandible through the frontal sinuses, with co pati and sagittal reformatting. 3-D reformatted images were performed. For radiation dose reduct ion, the following was used: automated exposure control, adjustment of mA and/or kV according to pat ient size. COMPARISON: Correlation is made with the accompanying imaging. FINDINGS: Image quality: Excellent. Bones and teeth: Orbital yoder are intact. Sinus yoder show no fracture or deformity. There is ambulatory service representative mann mild S shaped nasal septal deviation. Nasal bones and septum are intact. Visualized portions of the mandible demonstrate no fractures or subluxation. Zygomatic arches are intact. Pterygoid plates are intact. Visualized portions of the skull base and auditory canals are intact. Sinuses: Paranasal sinuses are aerated, without fluid levels, mucosal thickening, or mucoceles. Mas toid air cells are aerated. Soft tissues: No edema, masses, or fluid collections. No enlarged lymph nodes. No soft tissue lace rations or debris. Vascular: Visualized vascular structures appear normal in the absence of contrast. Bony vascular fo ramina and canals are intact. IMPRESSION: No displaced facial bone fracture is seen. Reviewed by: Fede Zarate MD on 03/02/2024 3:04 PM GOLDIE Approved by: Fede Zarate MD on 03/02/2024 3:04 PM GOLDIE Station ID: [id number]
--- NOTE | 2024-03-02 16:07 | CT Report ---
PROCEDURE: Head WO INDICATIONS: fall, head injury TECHNIQUE: Noncontrast 4.5 mm thick angled axial sections acquired from the foramen magnum to the vertex. For r adiation dose reduction, the following was used: automated exposure control, adjustment of mA and/or kV according to patient size. COMPARISON: 06/19/2023. Correlation is also made with the accompanying imaging. FINDINGS: Image quality: Excellent. CSF spaces: Basal cisterns are patent. No extra-axial fluid collections. Ventricles are normal in size and shape. Brain: No midline shift. No intracranial masses or hemorrhage. [place]-white matter interface is norm al. Skull and face: There is a mild scalp hematoma seen posteriorly, to the left of the midline, as on s eries 2 image 26 and on series 8 image 20. No associated calvarial fracture can be seen. Calvarium an d visualized facial bones are intact, without suspicious lesions. Sinuses: Visualized sinuses and mastoids are clear. IMPRESSION: Scalp hematoma seen posteriorly, without an associated calvarial fracture. No intracranial hemorrhage is seen. No significant intracranial abnormality is seen. Reviewed by: Fede Zarate MD on 03/02/2024 3:06 PM GOLDIE Approved by: Fede Zarate MD on 03/02/2024 3:06 PM GOLDIE Station ID: [id number]
--- NOTE | 2024-03-02 16:15 | CT Report ---
PROCEDURE: Pelvis WO INDICATIONS: L hip pain s/p fall, poss pubic ramus fracture TECHNIQUE: Noncontrast 3 mm axial sections acquired through the bony pelvis, with coronal and sagittal reformatt ing. For radiation dose reduction, the following was used: automated exposure control, adjustment of mA and/or kV according to patient size. COMPARISON: 06/23/2023 FINDINGS: Image quality: Excellent. Bones: Severe degenerative disc disease at L5-S1. Cortical irregularity of the right and left sacral alar with associated sclerosis, new from prior exa m, likely representing subacute to chronic sacral alar a fracture. 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 There is a chronic, nonunited fr acture of the right superior pubic ramus. There is a healed, slightly malunited fracture of the right inferior pubic ramus. Chondrocalcinosis of the pubic symphysis, representing CPPD arthropathy. The r ight hip is well aligned. No acute fracture or dislocation of the right hip. Joint spaces of left hip is well-maintained. There is a acute, mildly comminuted, minimally displaced fracture of the left superior pubic ramus, i n acute, nondisplaced fracture of the left inferior pubic ramus. The left hip is well aligned. No acu te fracture of the left proximal femur. No left hip dislocation. Joint space of the left hip is well- maintained. Soft tissues: Superior calcification of the distal abdominal aorta. The bladder is unremarkable. The re is marked dilatation of the proximal urethra, measuring 2.9 cm on axial dimension, new from prior exam. There is a left prevesical hematoma, measuring 5.2 cm. The uterus is atrophic. No adnexal marianela s. Left renal cyst. Severe sigmoid colon diverticulosis. Hepatomegaly, with the inferior aspect of the liver extending in to the pelvis. Diffuse generalized body anasarca in the pelvis. Multiple small inguinal lymph nodes, not pathologica lly enlarged. IMPRESSION: 1.Acute fracture of the left superior and inferior pubic ramus. 5.1 cm left prevesical hematoma. If t here is concern for bladder injury, CT cystogram should be considered. 2.Marked dilatation of the urethra, of unclear clinical significance, but is new from prior exam. 3.Subacute to chronic fracture of bilateral sacral alar. 4.Chronic fractures of the right posterior iliac wing, right superior and inferior pubic ramus. Reviewed by: Cherelle Hope MD on 03/02/2024 4:14 PM PDT Approved by: Cherelle Hope MD on 03/02/2024 4:14 PM PDT Station ID: [id number]
[2024-03-02 17:04] LABS: BILIRUBIN,URINE NEGATIVE (NEGATIVE); GLUCOSE, URINE (UA) NEGATIVE (NEGATIVE); KETONES,URINE (UA) NEGATIVE (NEGATIVE); LEUKOCYTE ESTERASE, URINE NEGATIVE (NEGATIVE); NITRITE,URINE NEGATIVE (NEGATIVE); OCCULT BLOOD,URINE NEGATIVE (NEGATIVE); PH,URINE 7.5 PH (5.0-7.5); PROTEIN,URINE NEGATIVE (NEGATIVE); UROBILINOGEN,URINE 0.2 (NORMAL) E.U./dL (NORMAL)
[2024-03-02 17:05] LABS: CLARITY,URINE CLEAR (CLEAR)
[2024-03-02 17:47] VITALS: BP 158/119; O2SAT 97
== END 2024-03-02 18:06 | disposition home or self-care (01) ==
LOC: EDUNIT# → ED 14:26
DX: S32.592A Other specified fracture of left pubis, initial encounter for closed fracture (principal); S00.01XA Abrasion of scalp, initial encounter; W01.0XXA Fall on same level from slipping, tripping and stumbling without subsequent striking against object, initial encounter; Y92.009 Unspecified place in unspecified non-institutional (private) residence as the place of occurrence of the external cause; I10 Essential (primary) hypertension; E78.00 Pure hypercholesterolemia, unspecified; E03.9 Hypothyroidism, unspecified; Z79.899 Other long term (current) drug therapy; Z79.82 Long term (current) use of aspirin
CPT/HCPCS: 81001; 81003; 87086; 99284

== ENCOUNTER 2024-06-03 14:31 | Outpatient (CLI) | payer MEDICARE, OTHER | END 2024-06-03 23:59 | disposition EMS.NT | LOC: EMS 14:31 | DX: S51.812A Laceration without foreign body of left forearm, initial encounter (principal); W01.198A Fall on same level from slipping, tripping and stumbling with subsequent striking against other object, initial encounter; Y92.009 Unspecified place in unspecified non-institutional (private) residence as the place of occurrence of the external cause ==